=== PATIENT | female | born 1945 | race Caucasian/White ===

== ENCOUNTER 2016-12-17 17:30 | Emergency (ER) | payer MEDICARE ==
[~2016-12-17] VITALS: Ht 162.6 cm; Wt 68.5 kg
[~2016-12-17 17:30] MED LIST: AMOX500C PO; AZEL23SP NS; BUPR100T6 PO; BUPR150T15 PO; CALC-30 PO; CEFU500T46 PO; CIPR500T PO; CYAN100T PO; FLUO10CA13 PO; GABA-585 PO; HYDR25TA9 PO; LEVO75TA5 PO; LEVO88TA2 PO; LIPA1CAP13 PO; LORA2TAB PO; MULT-208 PO; MULT1TAB52 PO; NALT50TA3 PO; NIFE30TA17 PO; OMEG1CAP16 PO; TOPI100T8 PO; TOPI25TA52 PO; VITA1TAB9 PO
[2016-12-17 18:03] VITALS: BP 123/78
[2016-12-17 18:43] LABS: BASO % 1 % (0-3); EOS # 0.1 x10^3/uL (0.0-0.7); EOS % 2 % (0-3); HEMATOCRIT 38.7 % (36.0-47.0); HEMOGLOBIN 12.8 g/dL (12.0-15.5); LYMPH # 1.4 x10^3/uL (1.0-4.8); LYMPH % 31 % (24-48); MEAN CORPUSCULAR HEMOGLOBIN 30 pg (25-35); MEAN CORPUSCULAR HGB CONC 33 g/dL (31-37); MEAN CORPUSCULAR VOLUME 91 fL (79-100); MONO # 0.3 x10^3/uL (0.0-1.1); MONO % 8 % (0-9); NEUT # 2.6 x10^3uL (1.8-7.7); NEUT % 59 % (31-73); PLATELET COUNT 155 x10^3/uL (140-400); RED BLOOD COUNT 4.27 x10^6/uL (3.50-5.40); RED CELL DISTRIBUTION WIDTH 15.6 % (11.5-14.5); WHITE BLOOD COUNT 4.4 x10^3/uL (4.0-11.0)
[2016-12-17] MEDS ORDERED: MVI, ADULT NO.4 WITH VIT K 10 ML, FOLIC ACID 1 MG, THIAMINE 100 MG in IV DEXTROSE 5%-LA... IV ONE ×4 (18:45)
[2016-12-17 19:00] LABS: ALBUMIN 3.9 g/dL (3.4-5.0); ALBUMIN/GLOBULIN RATIO 1.1 (1.0-1.7); CALCIUM 8.4 mg/dL (8.5-10.1); CREATININE 0.6 mg/dL (0.6-1.0); DIRECT BILIRUBIN 0.1 mg/dL (0.0-0.2); GFR 98.5; POTASSIUM 3.6 mmol/L (3.5-5.1); TOTAL BILIRUBIN 0.4 mg/dL (0.2-1.0); TOTAL PROTEIN 7.5 g/dL (6.4-8.2)
[2016-12-17 19:00] LABS: AMPHETAMINE/METHAMPHETAMINE NEG (NEG); BARBITURATES NEG (NEG); BENZODIAZEPINES NEG (NEG); CANNABINOIDS NEG (NEG); COCAINE NEG (NEG); METHADONE NEG (NEG); OPIATES NEG (NEG); PHENCYCLIDINE NEG (NEG)
--- NOTE | 2016-12-17 19:47 | ED.ADGEN ---
Past History Past Medical History: Alcoholism, High Cholesterol, Hypertension Past Surgical History: , Hysterectomy, Tonsillectomy Smoking: Non-smoker Alcohol Use: Heavy Drug Use: None Adult General Chief Complaint Chief Complaint ".. I was out walking on [address] [place] in [facility]... and guess I had fallen asleep.. .. I had been drink a little more than usual..." it just seem like a good place to take a nap.. quite. weather was great... but the hauled me in here..." HPI HPI Patient is a 71 year old female who presents with above hx and states she laid down and fell asleep, and when she did not return she they sent out search alliance party. Pt. found asleep, pt. is currently alert and pressured speech. Some dis coordination. Pt. has no specific complaints. Pt. Follows with Dr. Mendez. Pt. does have hx alcohol abuse. Review of Systems Review of Systems Constitutional: Denies fever or chills [] Eyes: Denies change in visual acuity, redness, or eye pain [] HENT: Denies nasal congestion or sore throat [] Respiratory: Denies cough or shortness of breath [] Cardiovascular: No additional information not addressed in HPI [] GI: Denies abdominal pain, nausea, vomiting, bloody stools or diarrhea [] : Denies dysuria or hematuria [] Musculoskeletal: Denies back pain or joint pain [] Integument: Denies rash or skin lesions [] Neurologic: Denies headache, focal weakness or sensory changes [] Endocrine: Denies polyuria or polydipsia [] Family History Family History Non- contributory Current Medications Current Medications Current Medications Medications (Trade) Dose Ordered Sig/Nova Start Time Stop Time Status Last Admin Dose Admin Multivitamins/ Minerals 10 ml/ Folic Acid 1 mg/ Thiamine HCl 100 mg/Dextrose/ Lactated Ringer's 1,011.2 ml @ 0 mls/hr 1X ONCE 12/17/16 18:45 12/17/16 18:46 DC 12/17/16 19:00 1,000 MLS/HR See Nursing for home meds Allergies Allergies Allergies Coded Allergies Type Severity Reaction Last Updated Verified Mquwycz-Qky-Rqn Reductase Inhibitor Allergy Intermediate 05/18/14 Yes lithium Allergy Intermediate 05/18/14 Yes I S O L A T I O N *CONTACT* Allergy Unknown 05/17/14 No acetaminophen Adverse Reaction Severe 08/20/14 Yes chlordiazepoxide Adverse Reaction Intermediate 08/20/14 Yes Physical Exam Physical Exam Constitutional: Well developed, well nourished, no acute distress, non-toxic appearance. [] and beside- states pt. current mental is at her baseline. HENT: Normocephalic, atraumatic, bilateral external ears normal, oropharynx dry , no oral exudates, nose normal. [] Eyes: PERRLA, EOMI, conjunctiva normal, no discharge. [] Neck: Normal range of motion, no tenderness, supple, no stridor. No bruits Cardiovascular:Heart rate regular rhythm, no murmur [] Lungs & Thorax: Bilateral breath sounds clear to auscultation [] Abdomen: Bowel sounds normal, soft, no tenderness, no masses, no pulsatile masses. [] Skin: Warm, dry, no erythema, no rash. [No signs of trauma noted. ] Back: No tenderness, no CVA tenderness. [] Extremities: No tenderness, no cyanosis, no clubbing, ROM intact, no edema. [] Neurologic: Alert and oriented X 3, normal motor function, normal sensory function, no focal deficits noted. []DTRs are +2 at patella and brachial. Distal sensation intact. [id number] fair. 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 Slightly wide gait Psychologic: Affect verbose, judgement normal, mood normal. [Patient up set about being brought to the hospital] Current Patient Data Vital Signs Vital Signs Date Time Temp Pulse Resp B/P (MAP) Pulse Ox O2 Delivery O2 Flow Rate FiO2 12/17/16 18:03 71 16 123/78 (93) 97 12/17/16 17:43 98.0 Room Air Lab Results Laboratory Tests Test 12/17/16 18:24 12/17/16 18:35 White Blood Count 4.4 x10^3/uL (4.0-11.0) Red Blood Count 4.27 x10^6/uL (3.50-5.40) Hemoglobin 12.8 g/dL (12.0-15.5) Hematocrit 38.7 % (36.0-47.0) Mean Corpuscular Volume 91 fL (79-100) Mean Corpuscular Hemoglobin 30 pg (25-35) Mean Corpuscular Hemoglobin Concent 33 g/dL (31-37) Red Cell Distribution Width 15.6 % (11.5-14.5) H Platelet Count 155 x10^3/uL (140-400) Neutrophils (%) (Auto) 59 % (31-73) Lymphocytes (%) (Auto) 31 % (24-48) Monocytes (%) (Auto) 8 % (0-9) Eosinophils (%) (Auto) 2 % (0-3) Basophils (%) (Auto) 1 % (0-3) Neutrophils # (Auto) 2.6 x10^3uL (1.8-7.7) Lymphocytes # (Auto) 1.4 x10^3/uL (1.0-4.8) Monocytes # (Auto) 0.3 x10^3/uL (0.0-1.1) Eosinophils # (Auto) 0.1 x10^3/uL (0.0-0.7) Basophils # (Auto) 0.0 x10^3/uL (0.0-0.2) Prothrombin Time 9.3 SEC (9.4-11.4) L Prothrombin Time INR 0.9 (0.9-1.1) PTT 24 SEC (23-33) Sodium Level 145 mmol/L (136-145) Potassium Level 3.6 mmol/L (3.5-5.1) Chloride Level 106 mmol/L (98-107) Carbon Dioxide Level 31 mmol/L (21-32) Anion Gap 8 (6-14) Blood Urea Nitrogen 15 mg/dL (7-20) Creatinine 0.6 mg/dL (0.6-1.0) Estimated GFR (Cockcroft-Gault) 98.5 BUN/Creatinine Ratio 25 (6-20) H Glucose Level 131 mg/dL (70-99) H Calcium Level 8.4 mg/dL (8.5-10.1) L Total Bilirubin 0.4 mg/dL (0.2-1.0) Direct Bilirubin 0.1 mg/dL (0.0-0.2) Aspartate Amino Transferase (AST) 27 U/L (15-37) Alanine Aminotransferase (ALT) 27 U/L (14-59) Alkaline Phosphatase 62 U/L (46-116) Troponin I Quantitative < 0.017 ng/mL (0-0.055) ES-Nkl-P-Type Natriuretic Peptide 88 pg/mL (0-124) Total Protein 7.5 g/dL (6.4-8.2) Albumin 3.9 g/dL (3.4-5.0) Albumin/Globulin Ratio 1.1 (1.0-1.7) Ethyl Alcohol Level 235 mg/dL (0-10) H Urine Opiates Screen Neg (NEG) Urine Methadone Screen Neg (NEG) Urine Barbiturates Neg (NEG) Urine Phencyclidine Screen Neg (NEG) Urine Amphetamine/Methamphetamine Neg (NEG) Urine Benzodiazepines Screen Neg (NEG) Urine Cocaine Screen Neg (NEG) Urine Cannabinoids Screen Neg (NEG) Urine Ethyl Alcohol Pos (NEG) EKG EKG I interpretation EKG shows a sinus rhythm at 72 bpm. Contour abnormalities anterior septal region nonspecific. No findings of STEMI.] Radiology/Procedures Radiology/Procedures [] Course & Med Decision Making Course & Med Decision Making Pertinent Labs and Imaging studies reviewed. (See chart for details) Pt. refuses further work up at this time . encourage pt. to return if any concerns. Pt. exhibit UCAR capacity. Pt. left with . Ambulatory without problems. Pt. to follow up with primary. Pt encourage reduce alcohol use. Return if any concerns. Daily baby aspirin. [] Final Impression Final Impression 1. Excessive Alcohol Use[] 2. Mid dehydration 3. Elevated Glucose Problems: Dragon Disclaimer Dragon Disclaimer This electronic medical record was generated, in whole or in part, using a voice recognition dictation system. LENIN CALLES MD Dec 17, 2016 19:47
--- NOTE | 2016-12-18 02:24 | EKG ---
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
--- NOTE | 2016-12-18 08:23 | RAD ---
Indication syncopal episode. Suspect CVA. Protocol exam. A single view of the chest was obtained and is compared to an examination 01/24/2016. The level of inspiratory is not as good as on the previous exam. There is some volume loss at the left lung base which, given the history, likely reflects atelectasis. Significant pleural fluid is not seen. There is no pneumothorax. IMPRESSION: Slightly suboptimal inspiratory effort. Minimal volume loss at the left lung base likely reflects atelectasis
== END 2016-12-17 19:58 | disposition home or self-care (01) ==
LOC: ER 17:30
DX: F10.20 Alcohol dependence, uncomplicated (principal); E86.0 Dehydration; R73.02 Impaired glucose tolerance (oral); I10 Essential (primary) hypertension; E78.00 Pure hypercholesterolemia, unspecified; Z90.49 Acquired absence of other specified parts of digestive tract; Z98.890 Other specified postprocedural states; Z88.8 Allergy status to other drugs, medicaments and biological substances; Z88.6 Allergy status to analgesic agent; Z91.041 Radiographic dye allergy status
CPT/HCPCS: 36415; 71010; 80053; 80307; 82248; 83880; 84484; 85025; 85610; 85730; 93005; 96365; 99285; G0480; G0479

== ENCOUNTER 2017-02-06 12:14 | Emergency (ER) | payer MEDICARE ==
[~2017-02-06] VITALS: Ht 162.6 cm; Wt 68.5 kg
[2017-02-06] MEDS ORDERED: ONDANSETRON PF 4 MG/2 ML VIAL. IV ONE (13:00)
[2017-02-06] MEDS ORDERED: FAMOTIDINE 20 MG/2 ML VIAL IVP ONE (13:00)
--- NOTE | 2017-02-06 13:13 | RAD ---
INDICATION: etoh, altered mental status COMPARISON: 12/17/2016 FINDINGS: Single view of chest obtained. Hypoexpanded examination with repeat demonstration of focal opacity at left lung base. Calcific atherosclerosis without enlargement of cardiac silhouette. Degenerative changes of the shoulders. IMPRESSION: Similar exam of compared to prior with hypoexpanded exam and hazy opacity at the left lung base. Could be secondary to a region of atelectasis unless the patient is displaying signs of infection.
[2017-02-06 13:14] LABS: BASO % 1 % (0-3); EOS # 0.1 x10^3/uL (0.0-0.7); EOS % 1 % (0-3); HEMOGLOBIN 13.3 g/dL (12.0-15.5); LYMPH # 0.9 x10^3/uL (1.0-4.8); LYMPH % 20 % (24-48); MEAN CORPUSCULAR HEMOGLOBIN 31 pg (25-35); MEAN CORPUSCULAR HGB CONC 34 g/dL (31-37); MEAN CORPUSCULAR VOLUME 91 fL (79-100); MONO # 0.4 x10^3/uL (0.0-1.1); MONO % 9 % (0-9); NEUT % 70 % (31-73); PLATELET COUNT 84 x10^3/uL (140-400); RED BLOOD COUNT 4.27 x10^6/uL (3.50-5.40); RED CELL DISTRIBUTION WIDTH 15.1 % (11.5-14.5); WHITE BLOOD COUNT 4.4 x10^3/uL (4.0-11.0)
[2017-02-06] MEDS ORDERED: MVI, ADULT NO.4 WITH VIT K 10 ML, FOLIC ACID SYRINGE for ER 1 MG, THIAMINE 100 MG in IV... IV SCH ×4 (13:15)
[2017-02-06 13:26] LABS: ALBUMIN 4.1 g/dL (3.4-5.0); CALCIUM 8.6 mg/dL (8.5-10.1); CREATININE 0.5 mg/dL (0.6-1.0); DIRECT BILIRUBIN 0.2 mg/dL (0.0-0.2); GFR 121.6; MAGNESIUM 1.7 mg/dL (1.8-2.4); POTASSIUM 3.7 mmol/L (3.5-5.1); TOTAL BILIRUBIN 0.6 mg/dL (0.2-1.0); TOTAL PROTEIN 7.7 g/dL (6.4-8.2)
--- NOTE | 2017-02-06 13:34 | PHYS DOC ---
General Chief Complaint: ALCOHOL INTOXICATION Stated Complaint: SHAKING Time Seen by MD: 12:45 Source: patient, family Exam Limitations: intoxication Problems: History of Present Illness Initial Comments Patient is a 71-year-old female brought to the ED admittedly intoxicated with alcohol requesting assistance with alcohol withdrawal. Patient's spouse states that this morning he observed her to be shaking and thought she could be withdrawing from alcohol. Patient states that she feels fine she understands that she is intoxicated and admits to nursing staff that she drank about a pint of vodka this morning. She admits to me that she had 1-2 cocktails of vodka. Patient states that she has been in and out of rehabilitation facilities for alcoholism and that she started drinking in the early 90s as result of stopping smoking. She denies any history of delirium tremens as well she denies history of seizure during all call withdrawal. 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 She is mildly hypertensive otherwise her ED vital signs are stable. She is noted to be slurring with some emotional lability but is for the most part agreeable and cooperative. She agrees to a banana bag and lab evaluation. Last drink was "this morning." Timing/Duration: other Severity: moderate Modifying Factors: improves with other Associated Symptoms: denies symptoms Allergies: Coded Allergies: Gxiattb-Hlf-Dlk Reductase Inhibitor (Verified Allergy, Intermediate, ) lithium (Verified Allergy, Intermediate, 05/18/14) I S O L A T I O N *CONTACT* (Unverified Allergy, Unknown, 05/17/14) acetaminophen (Verified Adverse Reaction, Severe, 08/20/14) has liver disease chlordiazepoxide (Verified Adverse Reaction, Intermediate, 08/20/14) confusion, falls Past Medical History Medical History: glaucoma, hepatitis, high cholesterol, hypertension, pancreatitis, other (alcoholism, depression, hypothyroidism, alcoholic liver disease, T12 compression fracture) Surgical History: tonsillectomy, other Family History Significant Family History: no pertinent family hx Social History Smoker: quit greater than 1 year Alcohol: heavy Drugs: none Review of Systems Constitutional: denies chills, denies diaphoresis, denies fever Respiratory: denies cough, denies shortness of breath, denies wheezing Cardiovascular: denies chest pain, denies palpitations, denies syncope Gastrointestinal: denies abdominal pain, denies diarrhea, denies nausea, denies vomiting Genitourinary: denies dysuria, denies frequency, denies hematuria Musculoskeletal: denies back pain, denies joint swelling, denies neck pain Psychiatric/Neurological: denies headache, denies numbness, denies paresthesia , denies seizure, denies tremors Hematologic/Lymphatic: denies blood clots, denies easy bleeding, denies easy bruising Physical Exam General Appearance: no apparent distress (disheveled, slurring obviously intoxicated) Eyes: bilateral eye PERRL, bilateral eye EOMI, bilateral eye scleral icterus ( mild bilaterally) Ear, Nose, Throat: hearing grossly normal, normal ENT inspection, normal pharynx Neck: non-tender, supple Respiratory: normal breath sounds, no respiratory distress (milligrams) Cardiovascular: normal peripheral pulses, regular rate, rhythm Gastrointestinal: normal bowel sounds, non tender, soft (liver 2 cm below costal margin) Back: no CVA tenderness, no vertebral tenderness Extremities: normal range of motion, non-tender, normal inspection Neurologic/Psychiatric: actuary II-XII nml as tested, no motor/sensory deficits, oriented x 3, other (intoxicated no tremor noted) Skin: warm/dry (no appreciable jaundice) Orders, Labs, Meds EKG: Normal sinus rhythm 70 bpm, T contour abnormality no STEMI changes. Interpreted Dr. Alcocer. PATIENT: SUNIL HOWELL ACCOUNT: [id number] : 1945 LOCATION: ER AGE: 71 SEX: F EXAM STATUS: REG ER ORD. PHYSICIAN: HORTENSIA ALCOCER DO REASON: etoh PROCEDURE: PORTABLE CHEST 1V INDICATION: etoh, altered mental status COMPARISON: 12/17/2016 FINDINGS: Single view of chest obtained. Hypoexpanded examination with repeat demonstration of focal opacity at left lung base. Calcific atherosclerosis without enlargement of cardiac silhouette. Degenerative changes of the shoulders. IMPRESSION: Similar exam of compared to prior with hypoexpanded exam and hazy opacity at the left lung base. Could be secondary to a region of atelectasis unless the patient is displaying signs of infection. DICTATED AND SIGNED BY: SHEILA RAM MD DATE: 02/06/17 0047 CC: RICHARD ZHANG MD; HORTENSIA ALCOCER DO ~ Pertinent labs: EtOH 278, magnesium 1.7, ALT 57, AST 63, platelets 84 1403: I had a long discussion with the patient and her regarding alcohol abuse, addiction, the dangers of D-Ts and alcohol withdrawal including seizures and . I discussed the patient's results today alcohol level 278, magnesium 1.7, ALT 57, AST 63, platelets 84. Lipase is pending and urine studies are pending as well. After thorough discussion of the risks and benefits of staying versus leaving the patient does request to leave as soon as her fluids have been completed. Her agrees that he will take her home and care for her until she megan up I will have orders ready for the winter fluids are done she would be discharged home with her . Impression: Alcoholism with acute intoxication Hypomagnesemia Alcoholic liver disease Thrombocytopenia likely secondary to alcohol abuse Departure Disposition: 01 HOME, SELF-CARE Diagnosis: alcoholism with acute intox, alcoholic liver dz, t Condition: GUARDED Patient Instructions: Alcohol Intoxication, Lvlm-qy-Akpd, Chronic Alcoholism Additional Instructions: Seek inpatient alcohol withdrawal rehabilitation treatment. Aggressive hydration with Gatorade and water. Multivitamin daily. No driving or operating machinery while intoxicated. Follow-up with Dr. Zhang on Thursday. Return to ED with new or changing symptoms. HORTENSIA ALCOCER DO Feb 06, 2017 13:34
[2017-02-06 14:00] LABS: BARBITURATES NEG (NEG); BENZODIAZEPINES NEG (NEG); CANNABINOIDS NEG (NEG); COCAINE NEG (NEG); METHADONE NEG (NEG); OPIATES NEG (NEG); PHENCYCLIDINE NEG (NEG)
[2017-02-06 14:01] LABS: AMPHETAMINE/METHAMPHETAMINE NEG (NEG)
[2017-02-06 14:02] LABS: BILIRUBIN,URINE NEG (NEG); CLARITY,URINE HAZY; COLOR,URINE YELLOW; GLUCOSE,URINE NEG (NEG)
[2017-02-06 14:03] LABS: BACTERIA,URINE FEW /HPF (0-FEW); NITRITE,URINE NEG (NEG); RBC,URINE OCC /HPF (0-2); SQUAMOUS EPITHELIAL CELL,UR OCC /LPF; UROBILINOGEN,URINE 0.2 mg/dL (0.2 mg/dL); WBC,URINE 0 /HPF (0-4)
[2017-02-06 14:30] VITALS: BP 146/92
--- NOTE | 2017-02-06 15:47 | EKG ---
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
== END 2017-02-06 14:30 | disposition home or self-care (01) ==
LOC: ER 12:14
DX: F10.229 Alcohol dependence with intoxication, unspecified (principal); E83.42 Hypomagnesemia; K70.9 Alcoholic liver disease, unspecified; D69.6 Thrombocytopenia, unspecified; E03.9 Hypothyroidism, unspecified; E78.00 Pure hypercholesterolemia, unspecified; I10 Essential (primary) hypertension; Z87.891 Personal history of nicotine dependence; Z88.8 Allergy status to other drugs, medicaments and biological substances; Z88.6 Allergy status to analgesic agent; Z91.041 Radiographic dye allergy status
CPT/HCPCS: 36415; 71010; 80048; 80076; 80307; 81001; 83690; 83735; 85025; 85610; 85730; 93005; 96365; 96375; 99285; G0480; J2405; S0028; G0479; J7030

== ENCOUNTER 2017-10-30 15:59 | Inpatient (IN) | payer MEDICARE ==
[~2017-10-30] VITALS: Ht 162.6 cm; Wt 80.5 kg
--- NOTE | 2017-10-30 16:41 | EKG ---
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
[2017-10-30] MEDS ORDERED: MVI, ADULT NO.4 WITH VIT K 10 ML, FOLIC ACID 1 MG, THIAMINE 100 MG in IV NORMAL SALINE ... IV ONE ×4 (16:45)
--- NOTE | 2017-10-30 17:03 | RAD ---
Indication: Fall today, pain Technique: Axial images and coronal and sagittal reformatted images are provided. Comparison is from November 18, 2012. One or more of the following individualized dose reduction techniques were utilized for this examination: 1. Automated exposure control 2. Adjustment of the mA and/or kV according to patient size 3. Use of iterative reconstruction technique Findings: There is no fracture. There is straightening of cervical lordosis. This may be positional or secondary to muscle spasm. Craniovertebral junction is unremarkable. Prevertebral soft tissues are within normal limits. Degenerative changes are noted. There is narrowing of the interspace at C5-C6. There is facet hypertrophy greatest at C3-C4 on the left and C4-C5 on the right. There is endplate spurring greatest at C5-C6. There are carotid artery calcifications. There is mild emphysema in the lung apices. IMPRESSION: 1. Negative for an acute fracture. 2. Straightening of cervical lordosis may be positional or secondary to muscle spasm. 3. Degenerative changes are increased from prior examination. Electronically signed by: Tray Ugalde MD (10/30/2017 4:59 PM) [facility]
--- NOTE | 2017-10-30 17:07 | RAD ---
Indication: Fall today. Patient states history of subdural hematoma. Technique: Noncontrast CT head was obtained. CT maxillofacial includes axial images and coronal and sagittal reformatted images. Comparison CT head is from May 25, 2015. One or more of the following individualized dose reduction techniques were utilized for this examination: 1. Automated exposure control 2. Adjustment of the mA and/or kV according to patient size 3. Use of iterative reconstruction technique Findings: Head: The ventricles are normal in size and configuration for age. There is no acute intracranial hemorrhage or extra-axial fluid collection. There is no mass effect or midline shift. There is mild probable small vessel ischemic disease. There is no depressed skull fracture. There is mild hyperostosis frontalis. Maxillofacial: There is no orbital fracture. Nasal bones are intact. Zygomatic arches are intact. Pterygoid plates are intact. Mandible is intact. There is no hemosinus. There is minimal maxillary mucosal thickening. There is nasal septal deviation to the right. There is a paradoxical left middle turbinate. IMPRESSION: 1. No acute intracranial findings. 2. Brain parenchymal volume loss and mild probable small vessel ischemic disease. 3. Negative for maxillofacial fracture. Electronically signed by: Tray Ugalde MD (10/30/2017 5:04 PM) [facility]
[2017-10-30 17:13] LABS: BASO % 1 % (0-3); EOS # 0.1 x10^3/uL (0.0-0.7); EOS % 2 % (0-3); HEMATOCRIT 38.8 % (36.0-47.0); LYMPH % 23 % (24-48); MEAN CORPUSCULAR HEMOGLOBIN 33 pg (25-35); MEAN CORPUSCULAR HGB CONC 34 g/dL (31-37); MEAN CORPUSCULAR VOLUME 98 fL (79-100); MONO # 0.4 x10^3/uL (0.0-1.1); MONO % 10 % (0-9); NEUT # 2.8 x10^3uL (1.8-7.7); NEUT % 66 % (31-73); PLATELET COUNT 108 x10^3/uL (140-400); RED BLOOD COUNT 3.97 x10^6/uL (3.50-5.40); RED CELL DISTRIBUTION WIDTH 14.2 % (11.5-14.5); WHITE BLOOD COUNT 4.3 x10^3/uL (4.0-11.0)
[2017-10-30 17:25] LABS: ALBUMIN 3.8 g/dL (3.4-5.0); CALCIUM 8.3 mg/dL (8.5-10.1); CREATININE 0.7 mg/dL (0.6-1.0); DIRECT BILIRUBIN 0.1 mg/dL (0.0-0.2); GFR 82.3; POTASSIUM 3.6 mmol/L (3.5-5.1); TOTAL BILIRUBIN 0.3 mg/dL (0.2-1.0); TOTAL PROTEIN 7.2 g/dL (6.4-8.2)
[2017-10-30 17:39] LABS: COLOR,URINE YELLOW
[2017-10-30 17:40] LABS: BACTERIA,URINE MANY /HPF (0-FEW); BILIRUBIN,URINE NEG (NEG); CLARITY,URINE CLOUDY; GLUCOSE,URINE NEG (NEG); NITRITE,URINE POS (NEG); SQUAMOUS EPITHELIAL CELL,UR FEW /LPF; UROBILINOGEN,URINE 0.2 mg/dL (0.2 mg/dL)
[2017-10-30] MEDS ORDERED: cefTRIAXone IV Push 1 GM VIAL. IVP ONE (18:00)
[2017-10-30] MEDS ORDERED: ONDANSETRON PF 4 MG/2 ML VIAL. IV PRN (18:15)
[2017-10-30] MEDS ORDERED: MORPHINE SULFATE 2 MG/ML DISP.SYRIN. IV PRN (18:15)
--- NOTE | 2017-10-30 18:35 | PHYS DOC ---
Past History Past Medical History: Alcoholism, High Cholesterol, Hypertension Past Surgical History: , Hysterectomy, Tonsillectomy Smoking: Non-smoker Alcohol Use: Heavy Drug Use: None Adult General Chief Complaint Chief Complaint: MECHANICAL FALL HPI HPI 72-year-old female presenting to the emergency department after sustaining a fall. Patient is a known alcoholic and admits to drinking today. She does not remember whether she had a mechanical fall and is unsure whether she passed out. She denies any pain. She does have ecchymosis over her left periorbital region. No palpable fractures noted. She denies neck pain and has nontender midline cervical spine. Blood pressure is mildly elevated in the emergency department. Otherwise vitals unremarkable. She denies fevers or chills. Patient is a poor story. Onset today. Location head and neck. Duration intermittent. No alleviating factors. Review of systems is negative for chest pain shortness of breath fevers chills abdominal pain neck pain neck stiffness. All other review of systems is negative unless otherwise noted in history of present illness. ED course: 72-year-old alcoholic presenting to the emergency department today after sustaining head injury. Possible loss of consciousness.Poor historian. EKG obtained and reviewed by myself shows sinus rhythm with a regular rate. ST segments are congruent. Not suggestive of ACS. Head neck and maxillofacial CT obtained and unremarkable for acute fracture. Patient's pupils are equal and reactive. No lacerations on examination. The remainder the workup demonstrates a urinary tract infection. Patient desires to stop drinking as well. I believe the patient will best be benefited by been treated in the hospital for IV detox IV antibiotics until sobriety. Dr. Robledo accept the patient for admission. Basic bridge orders placed. Fall precautions placed. The patient was then admitted for further treatment and care. We will start him the ICU and the patient to be stepdown depending on how her detox goes. Review of Systems Review of Systems SEE ABOVE. Current Medications Current Medications Current Medications Medications (Trade) Dose Ordered Sig/Nova Start Time Stop Time Status Last Admin Dose Admin Ceftriaxone Sodium 1 gm/ Sodium Chloride 50 ml @ 100 mls/hr 1X ONCE 10/30/17 18:00 10/30/17 18:29 UNV Ceftriaxone Sodium (Rocephin) 1 gm 1X ONCE 10/30/17 18:00 10/30/17 18:01 DC 10/30/17 18:00 1 GM Morphine Sulfate (Morphine 2mg Syringe) 2 mg PRN Q2HR PRN 10/30/17 18:15 10/31/17 18:14 Multivitamins/ Minerals 10 ml/ Folic Acid 1 mg/ Thiamine HCl 100 mg/Sodium Chloride 1,011.2 ml @ 0 mls/hr 1X ONCE 10/30/17 16:45 10/30/17 16:46 DC 10/30/17 16:45 1,000 MLS/HR Ondansetron HCl (Zofran) 4 mg PRN Q4HRS PRN 10/30/17 18:15 10/31/17 18:14 Sodium Chloride 1,000 ml @ 100 mls/hr Q10H 10/30/17 18:02 10/31/17 18:01 Allergies Allergies Allergies Coded Allergies Type Severity Reaction Last Updated Verified Cipmkvg-Hje-Dkd Reductase Inhibitor Allergy Intermediate 05/18/14 Yes lithium Allergy Intermediate 05/18/14 Yes I S O L A T I O N *CONTACT* Allergy Unknown 05/17/14 No acetaminophen Adverse Reaction Severe 08/20/14 Yes chlordiazepoxide Adverse Reaction Intermediate 08/20/14 Yes Physical Exam Physical Exam SEE ABOVE Constitutional: Well developed, well nourished, no acute distress, non-toxic appearance. [] HENT: Normocephalic, ecchymosis in the periorbital region on the left eye with normal eye exam., bilateral external ears normal, oropharynx moist, no oral exudates, nose normal. [] Eyes: PERRLA, EOMI, conjunctiva normal, no discharge. [] Neck: Normal range of motion, no tenderness, supple, no stridor. No step-offs abrasions lacerations of the cervical thoracic or lumbar spine on examination. Cardiovascular:Heart rate regular rhythm, no murmur [] Lungs & Thorax: Bilateral breath sounds clear to auscultation [] Abdomen: Bowel sounds normal, soft, no tenderness, no masses, no pulsatile masses. [] Skin: Warm, dry, no erythema, no rash. [] Back: No tenderness, no CVA tenderness. [] Extremities: No tenderness, no cyanosis, no clubbing, ROM intact, no edema. [] Neurologic: Alert and oriented X 3, normal motor function, normal sensory function, no focal deficits noted. [] Psychologic: Affect normal, judgement normal, mood normal. [] Current Patient Data Vital Signs Vital Signs Date Time Temp Pulse Resp B/P (MAP) Pulse Ox O2 Delivery O2 Flow Rate FiO2 10/30/17 17:58 80 18 141/83 (102) 98 Room Air 10/30/17 16:20 98.2 Lab Results Laboratory Tests Test 10/30/17 16:22 10/30/17 16:55 White Blood Count 4.3 x10^3/uL (4.0-11.0) Red Blood Count 3.97 x10^6/uL (3.50-5.40) Hemoglobin 13.0 g/dL (12.0-15.5) Hematocrit 38.8 % (36.0-47.0) Mean Corpuscular Volume 98 fL (79-100) Mean Corpuscular Hemoglobin 33 pg (25-35) Mean Corpuscular Hemoglobin Concent 34 g/dL (31-37) Red Cell Distribution Width 14.2 % (11.5-14.5) Platelet Count 108 x10^3/uL (140-400) L Neutrophils (%) (Auto) 66 % (31-73) Lymphocytes (%) (Auto) 23 % (24-48) L Monocytes (%) (Auto) 10 % (0-9) H Eosinophils (%) (Auto) 2 % (0-3) Basophils (%) (Auto) 1 % (0-3) Neutrophils # (Auto) 2.8 x10^3uL (1.8-7.7) Lymphocytes # (Auto) 1.0 x10^3/uL (1.0-4.8) Monocytes # (Auto) 0.4 x10^3/uL (0.0-1.1) Eosinophils # (Auto) 0.1 x10^3/uL (0.0-0.7) Basophils # (Auto) 0.0 x10^3/uL (0.0-0.2) Urine Collection Type Unknown Urine Color Yellow Urine Clarity Cloudy Urine pH 7.0 Urine Specific Byron 1.015 Urine Protein 100 mg/dl (NEG-TRACE) Urine Glucose (UA) Neg mg/dL (NEG) Urine Ketones (Stick) Neg mg/dL (NEG) Urine Blood Small (NEG) Urine Nitrite Pos (NEG) Urine Bilirubin Neg (NEG) Urine Urobilinogen Dipstick 0.2 mg/dL (0.2 mg/dL) Urine Leukocyte Esterase Small (NEG) Urine RBC 6-10 /HPF (0-2) Urine WBC 11-20 /HPF (0-4) Urine Squamous Epithelial Cells Few /LPF Urine Transitional Epithelial Cells Few /LPF Urine Bacteria Many /HPF (0-FEW) Sodium Level 144 mmol/L (136-145) Potassium Level 3.6 mmol/L (3.5-5.1) Chloride Level 106 mmol/L (98-107) Carbon Dioxide Level 31 mmol/L (21-32) Anion Gap 7 (6-14) Blood Urea Nitrogen 14 mg/dL (7-20) Creatinine 0.7 mg/dL (0.6-1.0) Estimated GFR (Cockcroft-Gault) 82.3 Glucose Level 101 mg/dL (70-99) H Calcium Level 8.3 mg/dL (8.5-10.1) L Total Bilirubin 0.3 mg/dL (0.2-1.0) Direct Bilirubin 0.1 mg/dL (0.0-0.2) Aspartate Amino Transferase (AST) 37 U/L (15-37) Alanine Aminotransferase (ALT) 45 U/L (14-59) Alkaline Phosphatase 46 U/L (46-116) Troponin I Quantitative < 0.017 ng/mL (0-0.055) Total Protein 7.2 g/dL (6.4-8.2) Albumin 3.8 g/dL (3.4-5.0) Lipase 576 U/L (73-393) H Ethyl Alcohol Level 295 mg/dL (0-10) H EKG EKG [] Radiology/Procedures Radiology/Procedures [] Course & Med Decision Making Course & Med Decision Making Pertinent Labs and Imaging studies reviewed. (See chart for details) [] Dragon Disclaimer Dragon Disclaimer This electronic medical record was generated, in whole or in part, using a voice recognition dictation system. Departure Departure: Impression: Primary Impression: Alcohol dependence with physiological dependence Additional Impressions: Fall Head injury Urinary tract infection Desire for detoxification Disposition: ADMITTED INPATIENT Admitting Physician: Tommy Dodd Condition: STABLE Referrals: TOMMY DODD MD (PCP) Problem Qualifiers RACHAEL COLON MD Oct 30, 2017 18:35
[2017-10-30 19:20] VITALS: BP 169/89
[2017-10-30 20:00] VITALS: BP 176/84
[2017-10-30] MEDS: IV NORMAL SALINE 1,000ML 1,000 ML IV SCH (20:40)
[2017-10-30 21:10] VITALS: BP 148/81
[2017-10-30 22:00] VITALS: BP 153/88
[2017-10-30 22:10] VITALS: BP 153/88
[2017-10-30 23:10] VITALS: BP 144/77
[2017-10-31] VITALS (27 sets, daily range): BP systolic 105–182; BP diastolic 55–102
[2017-10-31] MEDS ORDERED: diphenhydrAMINE 50 MG/ML VIAL IVP PRN (02:15)
[2017-10-31] MEDS ORDERED: HALOPERIDOL LACT 5 MG/ML VIAL. IM PRN (02:15)
[2017-10-31] MEDS: LORazepam 2 MG/ML VIAL IV PRN ×2 (02:37→16:32)
[2017-10-31 06:03] LABS: BASO % 1 % (0-3); EOS % 1 % (0-3); HEMATOCRIT 33.8 % (36.0-47.0); HEMOGLOBIN 11.5 g/dL (12.0-15.5); LYMPH # 0.9 x10^3/uL (1.0-4.8); LYMPH % 19 % (24-48); MEAN CORPUSCULAR HEMOGLOBIN 33 pg (25-35); MEAN CORPUSCULAR HGB CONC 34 g/dL (31-37); MEAN CORPUSCULAR VOLUME 98 fL (79-100); MONO # 0.4 x10^3/uL (0.0-1.1); MONO % 9 % (0-9); NEUT # 3.4 x10^3uL (1.8-7.7); NEUT % 71 % (31-73); PLATELET COUNT 80 x10^3/uL (140-400); RED BLOOD COUNT 3.45 x10^6/uL (3.50-5.40); RED CELL DISTRIBUTION WIDTH 14.1 % (11.5-14.5); WHITE BLOOD COUNT 4.8 x10^3/uL (4.0-11.0)
[2017-10-31 06:28] LABS: PLT ESTIMATE DECREASED (ADEQUATE)
[2017-10-31] MEDS: IV NORMAL SALINE 1,000ML 1,000 ML IV SCH ×2 (06:42→21:58)
[2017-10-31] MEDS ORDERED: POTASSIUM CHLORIDE 20 MEQ TABLET.ER. PO ONE (07:30)
[2017-10-31] MEDS ORDERED: MVI, ADULT NO.4 WITH VIT K 10 ML, FOLIC ACID 1 MG, THIAMINE 100 MG in IV NORMAL SALINE ... IV ONE ×4 (09:00)
[2017-10-31 09:21] LABS: ALBUMIN 3.2 g/dL (3.4-5.0); CALCIUM 7.6 mg/dL (8.5-10.1); CREATININE 0.5 mg/dL (0.6-1.0); GFR 121.3; MAGNESIUM 1.6 mg/dL (1.8-2.4); POTASSIUM 3.3 mmol/L (3.5-5.1); TOTAL BILIRUBIN 0.7 mg/dL (0.2-1.0); TOTAL PROTEIN 6.3 g/dL (6.4-8.2)
[2017-10-31 10:07] LABS: BARBITURATES NEG (NEG); BENZODIAZEPINES NEG (NEG); CANNABINOIDS NEG (NEG); COCAINE NEG (NEG); METHADONE NEG (NEG); OPIATES NEG (NEG); PHENCYCLIDINE NEG (NEG)
[2017-10-31 10:08] LABS: AMPHETAMINE/METHAMPHETAMINE NEG (NEG)
[2017-10-31] MEDS ORDERED: ELECTROLYTE (NON-ICU) PROTOCOL MC PRN (11:00)
--- NOTE | 2017-10-31 14:36 | HP ---
ADMIT DATE: 10/30/2017 HISTORY OF PRESENT ILLNESS: A 72-year-old female with known history of alcoholism, came in through the Emergency Room yesterday. She has been drinking and falling. Apparently, her just and she has been extremely depressed. The patient has neck tenderness and pain, has marked contusion to her chest. Alcohol level was 300. As a result of this, the patient was brought in for detoxification. She says she wants to get off alcohol. She has had binge drinking in the past. PAST MEDICAL HISTORY: Cataract, glaucoma, tonsillectomy, colonoscopy for polyps, GERD, tubal ligation, hysterectomy, salpingotomy, kidney stone, stress incontinence as well as hypothyroidism, cirrhosis of the liver, bipolar disorder, depression. VACCINATION: Pneumococcal vaccinations are up-to-date. SOCIAL HISTORY: The patient drinks about a pint of liquor whiskey a day, last one approximately within the last 24 hours. Denies smoking. Does drink quite heavily. FAMILY HISTORY: Diabetes in a sister. Mother, father, and sisters all with heart disease and also cancers. ALLERGIES AND SENSITIVITIES: To STATINS, REDUCTASE INHIBITORS, ____ , LIBRIUM. HOME MEDICATIONS: Include calcium, levothyroxine 75, and multivitamin. REVIEW OF SYSTEMS: The patient outside of her head, neck injury and tenderness there, the patient herself is resting fairly comfortably, making fairly good progress overall. PHYSICAL EXAMINATION: GENERAL: The patient on exam is a very pleasant white female with a contusion to her jaw and black and blue area there. She has had x-rays of the neck and head and unremarkable. VITAL SIGNS: Blood pressure 150/80, respiratory rate 16, pulse 60, afebrile. HEENT: The patient's head was atraumatic and normocephalic as noted; otherwise, with the trauma to her ____ . The eyes were PERRLA without jaundice. NECK: Tender. Decreased range of motion. CARDIOVASCULAR: Regular sinus rhythm, S1, S2. ABDOMEN: Soft, nontender. EXTREMITIES: No clubbing, cyanosis, some abrasions noted to the knee caps otherwise unremarkable. The patient otherwise is resting fairly comfortably there. NEUROLOGIC: Presently alert and oriented x 3. The patient has been consulted with Cardiology because of her elevated situation with her troponins. The patient has an echocardiogram, EKG. Cardiology to review her situation there and make further evaluation per those results. Otherwise, blood pressure as indicated above. LABORATORY DATA: Show an alcohol level of over approximately 300. The patient's troponins are elevated ____ . The patient's lipase was elevated. ASSESSMENT: The patient will be continued to be monitored in the ICU for any possible withdrawal. She is on CIWA protocol and will continue to be monitored carefully. RICHARD ZHANG MD DR: RAMIRO/susan JOB#: [id number] / [id number]
--- NOTE | 2017-10-31 15:21 | RAD ---
EXAM: Abdomen sonogram complete. HISTORY: Elevated liver enzymes laboratory values. TECHNIQUE: Sonographic imaging of the abdomen was performed. COMPARISON: 12/26/2013. FINDINGS: The liver is upper normal in size. There is suspected hepatic steatosis. No focal hepatic lesion is seen. The gallbladder is unremarkable. The spleen is normal in size. The kidneys are normal in size. There is no hydronephrosis. The common bile duct is normal in caliber. The pancreas, aorta and inferior vena cava are unremarkable. IMPRESSION: 1. Suspected hepatic steatosis. 2. Otherwise, unremarkable abdomen sonogram. Electronically signed by: Mabel Jimenez MD (10/31/2017 3:17 PM) [facility] [place]
[2017-10-31] MEDS: hydrALAZINE 20 MG/ML VIAL. IV PRN (15:46)
[2017-11-01] VITALS (25 sets, daily range): BP systolic 92–185; BP diastolic 45–96
[2017-11-01] MEDS: hydrALAZINE 20 MG/ML VIAL. IV PRN ×3 (00:12→14:35)
[2017-11-01] MEDS: LORazepam 2 MG/ML VIAL IV PRN ×5 (01:11→23:11)
[2017-11-01 06:42] LABS: BASO % 1 % (0-3); EOS # 0.1 x10^3/uL (0.0-0.7); EOS % 2 % (0-3); HEMATOCRIT 38.1 % (36.0-47.0); HEMOGLOBIN 12.9 g/dL (12.0-15.5); LYMPH % 22 % (24-48); MEAN CORPUSCULAR HEMOGLOBIN 33 pg (25-35); MEAN CORPUSCULAR HGB CONC 34 g/dL (31-37); MEAN CORPUSCULAR VOLUME 97 fL (79-100); MONO # 0.4 x10^3/uL (0.0-1.1); MONO % 10 % (0-9); NEUT % 66 % (31-73); PLATELET COUNT 83 x10^3/uL (140-400); RED BLOOD COUNT 3.91 x10^6/uL (3.50-5.40); RED CELL DISTRIBUTION WIDTH 13.8 % (11.5-14.5); WHITE BLOOD COUNT 4.5 x10^3/uL (4.0-11.0)
[2017-11-01 06:54] LABS: CALCIUM 8.1 mg/dL (8.5-10.1); CREATININE 0.5 mg/dL (0.6-1.0); GFR 121.3; POTASSIUM 3.4 mmol/L (3.5-5.1)
[2017-11-01] MEDS ORDERED: POTASSIUM CHLORIDE 20 MEQ TABLET.ER. PO ONE (07:30)
--- NOTE | 2017-11-01 08:10 | RAD ---
EXAM: CHEST 1 VIEW History: Shortness of breath COMPARISON: 02/06/2017 TECHNIQUE: Single portable radiograph of the chest FINDINGS: The cardiac silhouette is unremarkable. The lungs are clear bilaterally. The costophrenic sulci are clear and well demarcated. IMPRESSION: No radiographic evidence of an acute cardiopulmonary process. Electronically signed by: Aubrey Krishnan MD (11/01/2017 8:07 AM) [facility]
--- NOTE | 2017-11-01 21:16 | PN ---
DATE: 11/01/2017 SUBJECTIVE: A 72-year-old female came with falling at home and alcohol abuse. The patient is detoxing very nicely and readily without any complications so far. Still very weak on her legs, having difficulty mobilizing. The patient continues to be in good condition overall and we will continue to monitor her accordingly. Potassium still slightly low and her T4 is also a little bit on the low side. A couple of liver enzymes slightly elevated at 42 and 41, AST and alkaline phosphatase, total albumin low at 3.2. Culture on urine is still pending. IMPRESSION: Multiple falls with head contusion, mild concussion and alcohol abuse, alcohol detoxification, depression over the loss of her . RICHARD ZHANG MD DR: RAMIRO/susan JOB#: [id number] / [id number]
[2017-11-02] VITALS (7 sets, daily range): BP systolic 138–192; BP diastolic 72–96
[2017-11-02 06:57] LABS: ALBUMIN 3.7 g/dL (3.4-5.0); CALCIUM 8.7 mg/dL (8.5-10.1); CREATININE 0.5 mg/dL (0.6-1.0); GFR 121.3; POTASSIUM 3.6 mmol/L (3.5-5.1); TOTAL BILIRUBIN 1.5 mg/dL (0.2-1.0); TOTAL PROTEIN 7.4 g/dL (6.4-8.2)
[2017-11-02] MEDS ORDERED: MVI, ADULT NO.4 WITH VIT K 10 ML, FOLIC ACID 1 MG, THIAMINE 100 MG in IV NORMAL SALINE ... IV ONE ×4 (09:00)
--- NOTE | 2017-11-02 12:52 | PDOC ---
Exam Note: Parrish Note: Please also refer to the separate dictated note~for this date of service dictated separately.~Patient seen individually. Discussed the patient with Nursing staff reviewed the chart.~Reviewed interim history and current functioning. Reviewed vital signs,~Labs/ Radiology~and current medications noted below. Continue current treatment with the changes noted in the dictated addendum note. Late entry for 11/01/17 Assessment: Vital Signs: VS - Last 72 Hours, by Label Date Time Temp Pulse Resp B/P (MAP) Pulse Ox O2 Delivery O2 Flow Rate FiO2 11/02/17 07:58 Room Air 11/02/17 06:51 59 14 169/96 (120) Room Air 11/02/17 05:56 64 18 138/72 (94) 97 Room Air 11/02/17 05:08 98.1 66 17 154/81 (105) 96 Room Air 11/02/17 04:00 Room Air 11/02/17 04:00 61 19 144/74 (97) 95 Room Air 11/02/17 03:00 60 18 192/92 (125) 96 Room Air 11/02/17 02:00 69 18 163/80 (107) 96 Room Air 11/02/17 00:01 Room Air 11/02/17 00:01 68 20 164/95 (118) 95 Room Air 11/01/17 23:00 60 17 136/84 (101) 96 Room Air 11/01/17 22:00 69 17 171/88 (115) 97 Room Air 11/01/17 21:00 62 18 163/90 (114) 96 Room Air 11/01/17 20:00 67 18 153/94 (113) 96 Room Air 11/01/17 20:00 Room Air 11/01/17 19:16 97.9 83 20 156/85 (108) 96 Room Air 11/01/17 18:08 94 16 139/73 (95) 97 Room Air 11/01/17 17:03 88 16 140/78 (98) 97 Room Air 11/01/17 16:00 Room Air 11/01/17 15:59 81 20 176/96 (122) 97 Room Air 11/01/17 15:01 84 20 132/71 (91) 97 Room Air 11/01/17 14:35 78 185/96 11/01/17 14:33 78 20 185/96 (125) 97 Room Air 11/01/17 12:56 86 15 135/67 (89) 98 Room Air 11/01/17 12:00 82 15 137/80 (99) 97 Room Air 11/01/17 12:00 Room Air 11/01/17 11:12 78 15 150/70 (96) 98 Room Air 11/01/17 10:00 84 19 111/56 (74) 98 Room Air 11/01/17 09:08 77 20 92/45 (61) 96 Room Air 11/01/17 08:00 87 20 142/85 (104) 97 Room Air 11/01/17 08:00 Room Air 11/01/17 07:40 58 166/83 11/01/17 07:00 58 17 166/83 (110) 94 Room Air 11/01/17 06:02 65 12 146/76 (99) 94 Room Air 11/01/17 06:00 68 12 162/77 (105) 93 Room Air 11/01/17 05:30 97.8 11/01/17 04:55 60 17 139/76 (97) 95 Room Air 11/01/17 04:05 62 14 147/71 (96) 97 Room Air 11/01/17 04:00 Room Air 11/01/17 03:54 74 15 160/76 (104) 91 Room Air 11/01/17 02:54 75 18 136/78 (97) 97 Room Air 11/01/17 01:54 66 15 133/74 (93) 96 Room Air 11/01/17 00:55 83 14 125/69 (87) 98 Room Air 11/01/17 00:12 55 171/90 10/31/17 23:58 Room Air 10/31/17 23:51 55 15 171/90 (117) 97 Room Air 10/31/17 22:54 52 17 156/80 (105) 98 Room Air 10/31/17 21:54 64 17 143/72 (95) Room Air 10/31/17 21:18 74 12 128/80 (96) Room Air 10/31/17 20:14 63 13 139/89 (106) Room Air 10/31/17 20:06 96 Room Air 10/31/17 19:40 Room Air 10/31/17 19:17 65 17 109/78 (88) Room Air 10/31/17 19:02 98.5 10/31/17 18:10 69 17 105/55 (72) Room Air 10/31/17 18:00 71 20 105/69 (81) 95 Room Air 10/31/17 17:16 98.1 94 20 123/83 (96) 95 Room Air 10/31/17 16:08 82 20 140/69 (92) 95 Room Air 10/31/17 16:00 Room Air 10/31/17 15:46 64 182/102 10/31/17 15:29 64 20 182/102 (128) 95 Room Air 10/31/17 14:18 55 20 157/81 (106) 95 Room Air 10/31/17 13:00 78 20 177/95 (122) 95 Room Air 10/31/17 12:24 51 20 173/90 (117) 95 Room Air 10/31/17 12:00 57 20 167/84 (111) 95 Room Air 10/31/17 12:00 Room Air 10/31/17 11:00 62 20 172/94 (120) 95 Room Air 10/31/17 10:10 60 20 154/87 (109) 95 Room Air 10/31/17 09:08 98.0 72 18 159/87 (111) 96 Room Air 10/31/17 08:13 75 20 168/98 (121) 95 Room Air 10/31/17 08:00 Room Air 10/31/17 07:30 82 20 146/96 (113) 95 Room Air 10/31/17 06:00 73 16 145/88 (107) 95 Room Air 10/31/17 05:00 60 16 137/83 (101) 95 Room Air 10/31/17 04:15 98.5 58 16 138/82 (100) 92 Room Air 10/31/17 04:00 Room Air 10/31/17 03:15 60 16 148/73 (98) 10/31/17 02:45 94 10/31/17 02:15 68 19 166/85 (112) 10/31/17 01:15 65 24 152/80 (104) 95 Room Air 10/31/17 00:10 72 24 143/83 (103) 97 Room Air 10/30/17 23:59 Room Air 10/30/17 23:10 97.9 72 18 144/77 (99) 97 Room Air 10/30/17 22:10 71 20 153/88 (109) 96 Room Air 10/30/17 22:00 72 20 153/88 (109) 96 Room Air 10/30/17 21:10 76 22 148/81 (103) 95 Room Air 10/30/17 20:45 Room Air 10/30/17 20:00 77 18 176/84 (114) 93 Room Air 10/30/17 19:20 98.0 83 28 169/89 (115) 97 Room Air 10/30/17 17:58 80 18 141/83 (102) 98 Room Air 10/30/17 16:20 98.2 90 18 94 Room Air Vital Signs Date Time Temp Pulse Resp B/P (MAP) Pulse Ox O2 Delivery O2 Flow Rate FiO2 11/02/17 07:58 Room Air 11/02/17 06:51 59 14 169/96 (120) 11/02/17 05:56 97 11/02/17 05:08 98.1 I&O Intake and Output 11/02/17 07:00 Intake Total 1600 ml Output Total 2900 ml Balance -1300 ml Intake Oral 1600 ml Output Urine Total 2900 ml # Voids 2 Labs: Laboratory Tests Test 11/02/17 06:20 Sodium Level 141 mmol/L (136-145) Potassium Level 3.6 mmol/L (3.5-5.1) Chloride Level 105 mmol/L (98-107) Carbon Dioxide Level 26 mmol/L (21-32) Anion Gap 10 (6-14) Blood Urea Nitrogen 9 mg/dL (7-20) Creatinine 0.5 mg/dL (0.6-1.0) L Estimated GFR (Cockcroft-Gault) 121.3 BUN/Creatinine Ratio 18 (6-20) Glucose Level 101 mg/dL (70-99) H Calcium Level 8.7 mg/dL (8.5-10.1) Magnesium Level 1.8 mg/dL (1.8-2.4) Total Bilirubin 1.5 mg/dL (0.2-1.0) H Aspartate Amino Transferase (AST) 41 U/L (15-37) H Alanine Aminotransferase (ALT) 53 U/L (14-59) Alkaline Phosphatase 47 U/L (46-116) Total Protein 7.4 g/dL (6.4-8.2) Albumin 3.7 g/dL (3.4-5.0) Albumin/Globulin Ratio 1.0 (1.0-1.7) Current Medications: Meds: Current Medications Multivitamins/ Minerals 10 ml/ Folic Acid 1 mg/ Thiamine HCl 100 mg/Sodium Chloride 1,011.2 ml @ 0 mls/hr 1X ONCE IV Last administered on 10/30/17at 16: 45; Start 10/30/17 at 16:45; Stop 10/30/17 at 16:46; Status DC Ceftriaxone Sodium 1 gm/ Sodium Chloride 50 ml @ 100 mls/hr 1X ONCE IV ; Start 10/30/17 at 18:00; Stop 10/30/17 at 18:29; Status UNV Ceftriaxone Sodium (Rocephin) 1 gm 1X ONCE IVP Last administered on 10/30/17at 18:00; Start 10/30/17 at 18:00; Stop 10/30/17 at 18:01; Status DC Ondansetron HCl (Zofran) 4 mg PRN Q4HRS PRN IV NAUSEA/VOMITING; Start 10/30/17 at 18:15; Stop 10/31/17 at 18:14; Status DC Morphine Sulfate (Morphine 2mg Syringe) 2 mg PRN Q2HR PRN IV PAIN; Start at 18:15; Stop 10/31/17 at 18:14; Status DC Sodium Chloride 1,000 ml @ 100 mls/hr Q10H IV Last administered on 10/31/17at 21:58; Start 10/30/17 at 18:02; Stop 10/31/17 at 18:01; Status DC Lorazepam (Ativan) 2 mg PRN Q1HR PRN IV For CIWA 8-14 Last administered on 11/01at 16:01; Start 10/31/17 at 02:15; Stop 11/02/17 at 09:36; Status DC Lorazepam (Ativan) 4 mg PRN Q1HR PRN IV For CIWA 15 or greater Last administered on 11/01/17at 23:11; Start 10/31/17 at 02:15; Stop 11/02/17 at 09:36 ; Status DC Haloperidol Lactate (Haldol) 5 mg PRN Q4HRS PRN IM Hallucinatns,Confusn, Delirium; Start 10/31/17 at 02:15; Stop 11/02/17 at 09:36; Status DC Diphenhydramine HCl (Benadryl) 25 mg PRN Q15MIN PRN IVP EPS symptoms 2'Haldol admin; Start 10/31/17 at 02:15; Stop 11/02/17 at 09:36; Status DC Potassium Chloride (Klor-Con) 40 meq 1X ONCE PO Last administered on at 07:39; Start 10/31/17 at 07:30; Stop 10/31/17 at 07:32; Status DC Multivitamins/ Minerals 10 ml/ Folic Acid 1 mg/ Thiamine HCl 100 mg/Sodium Chloride 1,011.2 ml @ 0 mls/hr 1X ONCE IV Last administered on 10/31/17at 09: 14; Start 10/31/17 at 09:00; Stop 10/31/17 at 09:02; Status DC Info (Non-Icu Electrolyte Protocol) 1 ea CONT PRN PRN MC PER PROTOCOL; Start at 11:00; Stop 11/02/17 at 09:36; Status DC Hydralazine HCl (Apresoline) 20 mg PRN Q6HRS PRN IV ELEVATED BP, SEE COMMENTS Last administered on 11/01/17at 14:35; Start 10/31/17 at 15:45; Stop 11/02/17 at 09:36; Status DC Potassium Chloride (Klor-Con) 40 meq 1X ONCE PO Last administered on at 07:39; Start 11/01/17 at 07:30; Stop 11/01/17 at 07:33; Status DC Multivitamins/ Minerals 10 ml/ Folic Acid 1 mg/ Thiamine HCl 100 mg/Sodium Chloride 1,011.2 ml @ 0 mls/hr 1X ONCE IV ; Start 11/02/17 at 09:00; Stop at 09:01; Status DC Active Scripts Active Reported Calcium 500 + Vit D 400 Tablet (Calcium Carbonate/Vitamin D3) 1 Each Tablet 1 Tab PO DAILY NOT TAKEN TODAY RESUME TOMORROW Multivitamins (Multivitamin) 1 Each Tablet 1 Tab PO DAILY NOT GIVEN THIS ADMIT MAY RESUME Levothyroxine Sodium 75 Mcg Tablet 75 Mcg PO DAILYAC LAST DOSE THIS MORNING NEXT DOSE TOMORROW MORNING I have reviewed the current psychotropics carefully including drug interactions. Risk benefit ratio favors no change other than as noted in my dictated progress note. Diagnosis: Problems: (1) Alcohol dependence with physiological dependence (2) Alcohol dependence with intoxication (3) Alcohol withdrawal MAGGIE WRIGHT MD Nov 02, 2017 12:52
--- NOTE | 2017-11-02 19:05 | DS ---
DATE OF DISCHARGE: 11/02/2017 HOSPITAL COURSE: A 72-year-old female in with alcohol abuse, fell, hit her chin, had several other problems. The patient made good progress during the rest of her hospitalization also was noted to have a urinary tract infection. She will be started on oral antibiotics for that as the report came back later in the day there. In any case, the patient made good progress and recovered from her overall illness and was discharged home, and also was noted to have a low T4 as well as hypokalemia, ethyl alcohol level 295, liver enzymes, AST slightly elevated at 42. Magnesium was low, was brought up into range. The patient was noted to have E. coli urinary tract infection. RICHARD ZHANG MD DR: RAMIRO/susan JOB#: [id number] / [id number]
--- NOTE | 2017-11-02 19:53 | CONS ---
DATE OF CONSULTATION: 11/01/2017 This late entry 11/01/2017 covers elements not covered in my initial note. I met with the patient evening of 11/01/2017. Discussed with nursing staff, reviewed the chart. IDENTIFYING DATA: The patient is a 72-year-old female seen in ICU bed 1, [facility], for a psychiatric consult requested by Dr. Dodd after the patient was admitted for alcohol detox. She has had symptoms of anxiety and weeping all the time and a history of chronic alcoholism with the added stressor of her passing away consequent to alcohol related problems in August of this year. CHIEF COMPLAINT: "I have had 2 treatment programs in the past at [place] in [place] and the [facility] in [place], [place]. I used to drink a pint of alcohol every day, but recently I have been drinking a fifth. I have been on Campral and naltrexone in the past and they did not help, and I have been through [facility] to [facility], but they keep changing counselors. Me and my would drink together, but he in August." HISTORY OF PRESENT ILLNESS: The patient has a long history of alcohol abuse, admitted through the Emergency Room. She had been drinking and falling at home and she has been extremely depressed. No active suicidal ideation. No clear symptoms of bipolar disorder. At admission, she had some neck tenderness, pain, contusion to her chest, and when I saw her evening of 11/01/2017, she had bruising on her facial area. Admission alcohol level was 300. No history of bipolar disorder. PAST PSYCHIATRIC HISTORY: As above. MEDICAL HISTORY: Cataracts, glaucoma, history of tonsillectomy, colonoscopy for polyps, GERD, tubal ligation, hysterectomy, salpingo-oophorectomy, kidney stones, stress incontinence, hypothyroidism, cirrhosis of the liver, depression. There is a notation of bipolar disorder, but details are unclear, and it is unclear to what extent mood vacillations have been evident from the alcohol usage. ALLERGIES: STATINS, LIBRIUM, TYLENOL, LITHIUM. FAMILY HISTORY: Noncontributory. SOCIAL HISTORY: The patient lives alone since her . She has a daughter in [facility] who has been in close contact with the patient and has supportive. Alcohol history is noted above. MENTAL STATUS EXAMINATION: The patient was seen individually evening of 11/01/2017. She is oriented to place and situation. Speech coherent, abstraction fair. Computation, she could do one step of serial 7, but spelled world forward and backward with no errors. She is well oriented to the daytime situation. No suicidal or homicidal ideation. No clear psychotic symptoms. Mood does appear depressed. Affect is mood congruent, but it is too close to her last usage of alcohol to be able to assess this separate from the effects of alcohol. IMPRESSION: Alcohol abuse, dependence, withdrawal; history of major depressive disorder versus bipolar disorder, depressed. Rest as above. PLAN: From a psychiatric standpoint, I have discussed at length with the patient about outpatient followup at the [facility]. She had many reasons why she did not want to do this including frequent change of counselors. I have tried to reassure her that the alcohol counselor has a fairly consistent, but nevertheless, she needs to get in to see someone on a consistent basis or something arranged together with her daughter. I do feel an assessment of her mood symptoms with a unipolar depression or bipolar will need to be made when she has been abstinent from alcohol for sometime and past records will be needed as well. At this stage, the patient is almost ready to go back home, according to her desire, and she does state she wants to remain abstinent from alcohol, which is a positive. Dr. Dodd, thank you for the opportunity to participate in your patient's care. MAGGIE WRIGHT MD DR: GREGORY/susan JOB#: [id number] / [id number]
== END 2017-11-02 09:36 | disposition home or self-care (01) | DRG 89 ==
LOC: ER 15:59 → ICU 17:55
PROVIDERS: ADMIT Family Medicine; ATTEND Family Medicine
DX: S06.0X0A Concussion without loss of consciousness, initial encounter (principal); N39.0 Urinary tract infection, site not specified; F10.239 Alcohol dependence with withdrawal, unspecified; R29.6 Repeated falls; S00.93XA Contusion of unspecified part of head, initial encounter; F10.20 Alcohol dependence, uncomplicated; B96.20 Unspecified Escherichia coli [E. coli] as the cause of diseases classified elsewhere; E03.9 Hypothyroidism, unspecified; F10.229 Alcohol dependence with intoxication, unspecified; F31.9 Bipolar disorder, unspecified; I10 Essential (primary) hypertension; K21.9 Gastro-esophageal reflux disease without esophagitis; K74.60 Unspecified cirrhosis of liver; Y90.8 Blood alcohol level of 240 mg/100 ml or more; Z87.442 Personal history of urinary calculi; Z90.710 Acquired absence of both cervix and uterus; Z83.3 Family history of diabetes mellitus; E87.6 Hypokalemia; W18.39XA Other fall on same level, initial encounter; Y93.89 Activity, other specified; Y92.89 Other specified places as the place of occurrence of the external cause; Y99.8 Other external cause status
CPT/HCPCS: 36415; 70450; 70486; 71046; 72125; 76700; 80048; 80053; 80076; 80307; 81001; 83690; 83735; 84436; 84484; 85025; 87086; 87186; 87641; 93005; 96365; 96375; G0480; J0360; J0696; J2060; 99285-25; G0479; J7030

== ENCOUNTER 2017-12-24 18:17 | Inpatient (IN) | payer MEDICARE ==
[~2017-12-24] VITALS: Ht 162.6 cm; Wt 75.4 kg
--- NOTE | 2017-12-24 18:20 | ED.ADGEN ---
Past History Past Medical History: Alcoholism, High Cholesterol, Hypertension, Other Past Surgical History: , Hysterectomy, Tonsillectomy Smoking: Non-smoker Alcohol Use: Heavy Drug Use: None Adult General Chief Complaint Chief Complaint ".. I don't feel well... and need to drink ... ".. " I trying to quit again... I started again after my 3-4 months ago.. and now I am trying to quit again... I get really shaky...I normally see Dr. Dodd... " HPI HPI Patient is a 72 year old female who presents with above hx and complaints intoxication and confusion. Patient has long history of alcohol abuse with periodic episodes of abstinence. Patient states she had been sober for approximately year until her approximately 6 months ago. Since that time she been drinking very heavily. Patient states she tried to stop drinking yesterday but felt worse and became very shaky. Patient has history of alcohol withdrawal tremors.. and confusion. No specific hx of tonic clonic seizures with stopping alcohol. Patient stated she resumed drinking heavily today. Patient denies any travel. Patient denies any ill contacts. Patient denies any falls or trauma. Patient normally follows Dr. Robledo. Review of Systems Review of Systems Constitutional: Denies fever or chills [] Eyes: Denies change in visual acuity, redness, or eye pain [] HENT: Denies nasal congestion or sore throat [] Respiratory: Denies cough or shortness of breath [] Cardiovascular: No additional information not addressed in HPI [] GI: Denies abdominal pain, nausea, vomiting, bloody stools or diarrhea [] : Denies dysuria or hematuria [] Musculoskeletal: Denies back pain or joint pain [] Integument: Denies rash or skin lesions [] Neurologic: Denies headache, focal weakness or sensory changes []complains of tremors. Complains of contusion Endocrine: Denies polyuria or polydipsia [] All other systems were reviewed and found to be within normal limits, except as documented in this note. Family History Family History Noncontributory Current Medications Current Medications Current Medications Medications (Trade) Dose Ordered Sig/Nova Start Time Stop Time Status Last Admin Dose Admin Lorazepam (Ativan) 2 mg 1X ONCE 12/24/17 19:15 12/24/17 19:16 DC 12/24/17 19:54 2 MG Multivitamins/ Minerals 10 ml/ Folic Acid 1 mg/ Thiamine HCl 100 mg/Sodium Chloride 1,011.1 ml @ 1,000 mls/ hr 1X ONCE 12/24/17 18:45 12/24/17 19:45 DC 12/24/17 19:50 1,000 MLS/HR Allergies Allergies Allergies Coded Allergies Type Severity Reaction Last Updated Verified Bsenqxb-Erx-Khh Reductase Inhibitor Allergy Intermediate 05/18/14 Yes lithium Allergy Intermediate 05/18/14 Yes I S O L A T I O N *CONTACT* Allergy Unknown 05/17/14 No acetaminophen Adverse Reaction Severe 08/20/14 Yes chlordiazepoxide Adverse Reaction Intermediate 08/20/14 Yes Physical Exam Physical Exam Constitutional: Moderate the acute distress, very intoxicated in appearance. [] HENT: Normocephalic, atraumatic, bilateral external ears normal, oropharynx moist, no oral exudates, nose normal. [] Eyes: PERRLA, EOMI, conjunctiva normal, no discharge. [] Neck: Normal range of motion, no tenderness, supple, no stridor. [] Cardiovascular:Heart rate regular rhythm, no murmur [] Lungs & Thorax: Bilateral breath sounds equal at apex on auscultation [] Abdomen: Bowel sounds normal, soft, no tenderness, no masses, no pulsatile masses. [Old scar. Skin: Warm, dry, no erythema, no rash. [] Back: No tenderness, no CVA tenderness. [] Extremities: No tenderness, no cyanosis, no clubbing, ROM intact, no edema. [] Neurologic: Alert and oriented X 3, normal motor function, normal sensory function, no focal deficits noted. []DTRs are +2 patella and brachial. 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 Psychologic: Affect anxious, poor short term memory, intoxicated, mood depressed. Current Patient Data Vital Signs Vital Signs Date Time Temp Pulse Resp B/P (MAP) Pulse Ox O2 Delivery O2 Flow Rate FiO2 12/24/17 19:20 61 22 130/70 (90) 92 Room Air Lab Results Laboratory Tests Test 12/24/17 18:32 12/24/17 18:50 White Blood Count 4.0 x10^3/uL (4.0-11.0) Red Blood Count 3.83 x10^6/uL (3.50-5.40) Hemoglobin 12.6 g/dL (12.0-15.5) Hematocrit 37.3 % (36.0-47.0) Mean Corpuscular Volume 97 fL (79-100) Mean Corpuscular Hemoglobin 33 pg (25-35) Mean Corpuscular Hemoglobin Concent 34 g/dL (31-37) Red Cell Distribution Width 14.7 % (11.5-14.5) H Platelet Count 128 x10^3/uL (140-400) L Neutrophils (%) (Auto) 53 % (31-73) Lymphocytes (%) (Auto) 28 % (24-48) Monocytes (%) (Auto) 15 % (0-9) H Eosinophils (%) (Auto) 2 % (0-3) Basophils (%) (Auto) 2 % (0-3) Neutrophils # (Auto) 2.1 x10^3uL (1.8-7.7) Lymphocytes # (Auto) 1.1 x10^3/uL (1.0-4.8) Monocytes # (Auto) 0.6 x10^3/uL (0.0-1.1) Eosinophils # (Auto) 0.1 x10^3/uL (0.0-0.7) Basophils # (Auto) 0.1 x10^3/uL (0.0-0.2) Sodium Level 142 mmol/L (136-145) Potassium Level 4.2 mmol/L (3.5-5.1) Chloride Level 103 mmol/L (98-107) Carbon Dioxide Level 32 mmol/L (21-32) Anion Gap 7 (6-14) Blood Urea Nitrogen 18 mg/dL (7-20) Creatinine 0.6 mg/dL (0.6-1.0) Estimated GFR (Cockcroft-Gault) 98.3 Glucose Level 100 mg/dL (70-99) H Calcium Level 8.7 mg/dL (8.5-10.1) Magnesium Level 1.9 mg/dL (1.8-2.4) Ammonia 45 mcmol/L (11-34) H Creatine Kinase 151 U/L (26-192) Creatine Kinase MB (Mass) 1.3 ng/mL (0.0-3.6) Creatine Kinase MB Relative Index 0.9 % (0-4) Troponin I Quantitative < 0.017 ng/mL (0-0.055) DC-Rgu-F-Type Natriuretic Peptide 66 pg/mL (0-124) Salicylates Level 0.9 mg/dL (2.8-20.0) L Salicylate Last Dose Date Unk Salicylate Last Dose Time Unk Acetaminophen Level < 2.0 mcg/mL (10-30) L Acetaminophen Last Dose Date Unk Acetaminophen Last Dose Time Unk Ethyl Alcohol Level 299 mg/dL (0-10) H Prothrombin Time < 9.3 SEC (9.4-11.4) L Prothrombin Time INR 0.9 (0.9-1.1) PTT 24 SEC (23-33) EKG EKG My interpretation of EKG shows a sinus rhythm at 80 bpm. There is some contour changes anterior lateral leads. But no findings acute STEMI of contralateral changes[] Radiology/Procedures Radiology/Procedures My interpretation CT of head shows no shift, mass, edema, bleed, or fracture. My interpretation of chest x-ray shows no acute cardiopulmonary findings. There is some areas of linear atelectasis . Course & Med Decision Making Course & Med Decision Making Pertinent Labs and Imaging studies reviewed. (See chart for details) Stress presentation, testing and treatment plan with Dr. Dodd. Will admit for further evaluation and treatment. We will initiate alcohol withdrawal observation and treatment. [] Final Impression Final Impression 1. Hx. Alcohol Abuse 299 2. Hx of Alcohol Withdrawal[] 3. Thrombocytopenia Dragon Disclaimer Dragon Disclaimer This electronic medical record was generated, in whole or in part, using a voice recognition dictation system. LENIN CALLES MD Dec 24, 2017 18:20
[2017-12-24] MEDS ORDERED: MVI, ADULT NO.4 WITH VIT K 10 ML, FOLIC ACID SYRINGE for ER 1 MG, THIAMINE INJ 100 MG i... IV ONE ×4 (18:45)
[2017-12-24 19:06] LABS: BASO # 0.1 x10^3/uL (0.0-0.2); BASO % 2 % (0-3); EOS # 0.1 x10^3/uL (0.0-0.7); EOS % 2 % (0-3); HEMATOCRIT 37.3 % (36.0-47.0); HEMOGLOBIN 12.6 g/dL (12.0-15.5); LYMPH # 1.1 x10^3/uL (1.0-4.8); LYMPH % 28 % (24-48); MEAN CORPUSCULAR HEMOGLOBIN 33 pg (25-35); MEAN CORPUSCULAR HGB CONC 34 g/dL (31-37); MEAN CORPUSCULAR VOLUME 97 fL (79-100); MONO # 0.6 x10^3/uL (0.0-1.1); MONO % 15 % (0-9); NEUT # 2.1 x10^3uL (1.8-7.7); NEUT % 53 % (31-73); PLATELET COUNT 128 x10^3/uL (140-400); RED BLOOD COUNT 3.83 x10^6/uL (3.50-5.40); RED CELL DISTRIBUTION WIDTH 14.7 % (11.5-14.5)
[2017-12-24 19:14] LABS: ETHANOL 299 mg/dL (0-10); SALIC 0.9 mg/dL (2.8-20.0)
[2017-12-24] MEDS ORDERED: LORazepam 1 MG TABLET PO ONE (19:15)
[2017-12-24 19:17] LABS: ACETAMIN < 2.0 mcg/mL (10-30)
--- NOTE | 2017-12-24 19:21 | RAD ---
PQRS Compliance statement: One or more of the following individualized dose reduction techniques were utilized for this examination: 1. Automated exposure control. 2. Adjustment of the mA and/or kV according to patient size. 3. Use of iterative reconstruction technique. Indication:AMS, POSSIBLE OD. TECHNIQUE: CT head without IV contrast COMPARISON:10/30/2017 FINDINGS: No pathologic extra-axial or intra-axial fluid collection. Mild diffuse cerebral atrophy. The ventricles and basal cisterns are within normal limits. No acute intracranial bleed. No focal loss of melgar-white differentiation. No suspicious calvarial lesion. Visualized paranasal sinuses and mastoid air cells are clear. IMPRESSION: No acute intracranial process. If concern for acute ischemic stroke is high, please consider MRI brain. Electronically signed by: Nadeem Torres DO (12/24/2017 7:18 PM) [facility]
[2017-12-24 19:30] LABS: CALCIUM 8.7 mg/dL (8.5-10.1); CREATININE 0.6 mg/dL (0.6-1.0); GFR 98.3; MAGNESIUM 1.9 mg/dL (1.8-2.4); POTASSIUM 4.2 mmol/L (3.5-5.1)
[2017-12-24] MEDS ORDERED: ONDANSETRON PF 4 MG/2 ML VIAL. IV PRN (19:45)
[2017-12-24] MEDS ORDERED: LORazepam 2 MG/ML VIAL IV PRN (19:45)
[2017-12-24] MEDS: IV RINGERS SOLUTION,LACTATED 1,000 ML IV SCH (19:54)
[2017-12-24] MEDS ORDERED: cloNIDine TTS-2 1 PATCH PATCH TD ONE (20:00)
--- NOTE | 2017-12-24 20:06 | EKG ---
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
[2017-12-24] MEDS: LORazepam 1 MG TABLET PO SCH (21:00)
[2017-12-24 22:51] VITALS: BP 131/78
[2017-12-24 22:55] LABS: AMPHETAMINE/METHAMPHETAMINE NEG (NEG); BARBITURATES NEG (NEG); BENZODIAZEPINES NEG (NEG); CANNABINOIDS NEG (NEG); COCAINE NEG (NEG); METHADONE NEG (NEG); OPIATES NEG (NEG); PHENCYCLIDINE NEG (NEG)
[2017-12-24 22:56] LABS: BACTERIA,URINE 0 /HPF (0-FEW); BILIRUBIN,URINE NEG (NEG); CLARITY,URINE CLEAR; COLOR,URINE YELLOW; GLUCOSE,URINE NEG (NEG); NITRITE,URINE NEG (NEG); RBC,URINE 0 /HPF (0-2); SQUAMOUS EPITHELIAL CELL,UR OCC /LPF; UROBILINOGEN,URINE 0.2 mg/dL (0.2 mg/dL)
[2017-12-25] MEDS: IV RINGERS SOLUTION,LACTATED 1,000 ML IV SCH (02:24)
[2017-12-25] MEDS ORDERED: LISI-334 PO (03:58)
[2017-12-25] MEDS ORDERED: NIFE60TA14 PO (03:58)
[2017-12-25] MEDS ORDERED: HYDR12.58 PO (03:58)
[2017-12-25] MEDS ORDERED: LEVO50TA5 PO (03:58)
[2017-12-25 05:06] VITALS: BP 157/88
[2017-12-25 06:53] LABS: BASO % 1 % (0-3); EOS # 0.1 x10^3/uL (0.0-0.7); EOS % 2 % (0-3); HEMATOCRIT 35.1 % (36.0-47.0); HEMOGLOBIN 11.8 g/dL (12.0-15.5); LYMPH # 0.6 x10^3/uL (1.0-4.8); LYMPH % 14 % (24-48); MEAN CORPUSCULAR HEMOGLOBIN 33 pg (25-35); MEAN CORPUSCULAR HGB CONC 34 g/dL (31-37); MEAN CORPUSCULAR VOLUME 97 fL (79-100); MONO # 0.4 x10^3/uL (0.0-1.1); MONO % 10 % (0-9); NEUT % 73 % (31-73); PLATELET COUNT 110 x10^3/uL (140-400); RED BLOOD COUNT 3.61 x10^6/uL (3.50-5.40); RED CELL DISTRIBUTION WIDTH 14.7 % (11.5-14.5); WHITE BLOOD COUNT 4.1 x10^3/uL (4.0-11.0)
[2017-12-25 07:19] LABS: ALBUMIN 3.2 g/dL (3.4-5.0); ALBUMIN/GLOBULIN RATIO 0.9 (1.0-1.7); CALCIUM 7.8 mg/dL (8.5-10.1); CREATININE 0.6 mg/dL (0.6-1.0); GFR 98.3; POTASSIUM 3.6 mmol/L (3.5-5.1); TOTAL BILIRUBIN 0.6 mg/dL (0.2-1.0); TOTAL PROTEIN 6.6 g/dL (6.4-8.2)
[2017-12-25] MEDS ORDERED: LEVOTHYROXINE 75 MCG TABLET PO SCH (07:30)
[2017-12-25] MEDS ORDERED: LEVOTHYROXINE 50 MCG TABLET PO SCH ×2 (07:30→08:00)
[2017-12-25] MEDS: LORazepam 1 MG TABLET PO SCH (08:14)
[2017-12-25 08:24] VITALS: BP 157/88
[2017-12-25] MEDS: CALCIUM CARB/VIT D3 500/200 TABLET PO SCH ×2 (08:24→08:30)
--- NOTE | 2017-12-25 08:48 | RAD ---
Chest radiograph 12/24/2017 6:38 PM INDICATION: Altered mental status, possible overdose COMPARISON: November 01, 2017 TECHNIQUE: Frontal view of the chest is provided. FINDINGS: The cardiomediastinal silhouette is within normal limits. There are no pleural effusions. There is no pulmonary vascular congestion. There is no pneumothorax. The lungs are clear. There is subsegmental atelectasis in the left midlung. No significant osseous abnormality is identified. IMPRESSION: No acute cardiopulmonary process. Electronically signed by: Ingrid Perez MD (12/25/2017 8:45 AM) [id number]
[2017-12-25] MEDS ORDERED: MULTIVITAMIN with MINERAL TABLET. PO SCH (09:00)
[2017-12-25] MEDS ORDERED: hydroCHLOROthiazide 12.5 MG CAPSULE PO SCH (09:00)
[2017-12-25] MEDS ORDERED: LISINOPRIL 20 MG TABLET PO SCH (09:00)
[2017-12-25] MEDS ORDERED: MVI, ADULT NO.4 WITH VIT K 10 ML, FOLIC ACID INJ 1 MG, THIAMINE INJ 100 MG in IV NORMAL... IV SCH ×4 (09:00)
== END 2017-12-25 10:39 | disposition home or self-care (01) | DRG 897 ==
LOC: ER 18:17 → 1 SOUTH 19:30
PROVIDERS: ADMIT Family Medicine; ATTEND Family Medicine
DX: F10.221 Alcohol dependence with intoxication delirium (principal); D69.6 Thrombocytopenia, unspecified; I10 Essential (primary) hypertension; E78.00 Pure hypercholesterolemia, unspecified; Z90.710 Acquired absence of both cervix and uterus; Z90.49 Acquired absence of other specified parts of digestive tract; Z88.8 Allergy status to other drugs, medicaments and biological substances; Z79.899 Other long term (current) drug therapy; M81.0 Age-related osteoporosis without current pathological fracture; Z96.1 Presence of intraocular lens; F32.9 Major depressive disorder, single episode, unspecified; Y90.0 Blood alcohol level of less than 20 mg/100 ml; F41.9 Anxiety disorder, unspecified; Z98.51 Tubal ligation status; Z98.42 Cataract extraction status, left eye; Z82.49 Family history of ischemic heart disease and other diseases of the circulatory system; Z82.3 Family history of stroke
CPT/HCPCS: 36415; 70450; 71045; 80048; 80053; 80307; 81001; 82140; 82553; 83690; 83735; 83880; 84484; 85025; 85610; 85730; 87086; 93005; G0238; G0480; G6039; J2405; J7120; 82003; 99285-25; G0479; J7030

== ENCOUNTER 2017-12-28 13:48 | Emergency (ER) | payer MEDICARE ==
[~2017-12-28] VITALS: Ht 162.6 cm; Wt 68.5 kg
[~2017-12-28 13:48] MED LIST changes: +HYDR12.58 PO; +LEVO50TA5 PO; +LISI-334 PO; +NIFE60TA14 PO
--- NOTE | 2017-12-28 13:58 | PHYS DOC ---
Past History Past Medical History: Alcoholism, Hypertension, Hypothyroid Past Surgical History: No Surgical History Smoking: Non-smoker Alcohol Use: Heavy Drug Use: None Adult General HPI HPI patient is a 72-year-old female who presents to the emergency department via EMS, for "detox". She states that she does not drink all the time but when she drinks she drinks heavily. She states she drinks at least a pint daily. She states her last drink was last night. She states she is feeling tremulous needs "detox". She states she has not been to inpatient therapy in over a year but went to an outpatient mental health center, and was referred to the emergency department so she could be transferred to [place] where she might be able to go undergo inpatient detox. The patient denies any suicidal ideation. She has not had any fevers or chills, nausea, vomiting. Other than feeling tremulous and anxious she has no other symptoms. She is not having any pain at this time. She does ambulate with a steady gait. There are no alleviating, or exacerbating factors to her symptoms. Review of Systems Review of Systems Constitutional: Denies fever or chills [] Eyes: Denies change in visual acuity, redness, or eye pain [] HENT: Denies nasal congestion or sore throat [] Respiratory: Denies cough or shortness of breath [] Cardiovascular: The patient denies any shortness of breath, chest pain, palpitations, or orthopnea [] GI: Denies abdominal pain, nausea, vomiting, bloody stools or diarrhea [] : Denies dysuria or hematuria [] Musculoskeletal: Denies back pain or joint pain [] Integument: Denies rash or skin lesions [] Neurologic: Denies headache, focal weakness or sensory changes [] Endocrine: Denies polyuria or polydipsia [] Psychiatric: The patient denies any suicidal or homicidal thoughts. [] All other systems were reviewed and found to be within normal limits, except as documented in this note. Allergies Allergies Allergies Coded Allergies Type Severity Reaction Last Updated Verified Jsbzeyu-Ien-Cut Reductase Inhibitor Allergy Intermediate 05/18/14 Yes lithium Allergy Intermediate 05/18/14 Yes I S O L A T I O N *CONTACT* Allergy Unknown 05/17/14 No acetaminophen Adverse Reaction Severe 08/20/14 Yes chlordiazepoxide Adverse Reaction Intermediate 08/20/14 Yes Physical Exam Physical Exam PHYSICAL EXAM: CONSTITUTIONAL: Well developed, well nourished. The order of alcohol detectable on the patient's breath. HEAD: normocephalic, atraumatic EENT: PERRL, EOMI. Conjunctivae are injected bilaterally. There is no nystagmus noted., sclerae non-icteric; moist mucous membranes. NECK: Supple, non-tender; no meningismus. LUNGS: Lungs CTA, breathing even and unlabored. Normal air movement. HEART: Regular rate and rhythm, no murmur CHEST: No deformity; non-tender ABDOMEN: The abdomen is soft, and non-tender, no masses or bruits. EXTREM: Normal ROM; no deformity, no calf tenderness. Normal pulses palpable in all extremities. There is no pedal edema. SKIN: No rash; no diaphoresis NEURO: Alert; normal speech and cognition; CN's grossly intact; strength grossly intact without focal deficit. The patient does exhibit mild tremulousness. Mental status is otherwise normal. BACK: No CVA TTP. EKG EKG [Normal sinus rhythm at a rate of 87 beats for minute, normal axis, normal intervals. There are no acute ischemic ST/T changes.] Radiology/Procedures Radiology/Procedures [] Course & Med Decision Making Course & Med Decision Making Pertinent Labs and Imaging studies reviewed. (See chart for details) [4:10 PM: The patient's condition remained stable at this time. She was like to go home and take care of her cat. She does have resources for [facility]. She is not suicidal and does not warrant emergent treatment but I did stress the importance of obtaining help with her alcoholism. Return precautions were discussed in detail.] Dragon Disclaimer Dragon Disclaimer This electronic medical record was generated, in whole or in part, using a voice recognition dictation system. Departure Departure: Impression: Primary Impression: Alcoholism Disposition: HOME, SELF-CARE Condition: STABLE Referrals: RICHARD ZHANG MD (PCP) Patient Instructions: Alcohol Intoxication, Alcohol Problems ENE MARTINEZ MD Dec 28, 2017 13:58
[2017-12-28] MEDS ORDERED: MVI, ADULT NO.4 WITH VIT K 10 ML, FOLIC ACID SYRINGE for ER 1 MG, THIAMINE INJ 100 MG i... IV SCH ×4 (14:30)
[2017-12-28] MEDS ORDERED: LORazepam 2 MG/ML VIAL IV ONE (14:30)
[2017-12-28 15:01] LABS: BASO # 0.1 x10^3/uL (0.0-0.2); BASO % 1 % (0-3); EOS % 0 % (0-3); HEMATOCRIT 37.4 % (36.0-47.0); HEMOGLOBIN 12.6 g/dL (12.0-15.5); LYMPH # 0.9 x10^3/uL (1.0-4.8); LYMPH % 16 % (24-48); MEAN CORPUSCULAR HEMOGLOBIN 33 pg (25-35); MEAN CORPUSCULAR HGB CONC 34 g/dL (31-37); MEAN CORPUSCULAR VOLUME 98 fL (79-100); MONO # 0.5 x10^3/uL (0.0-1.1); MONO % 9 % (0-9); NEUT % 73 % (31-73); PLATELET COUNT 118 x10^3/uL (140-400); RED BLOOD COUNT 3.83 x10^6/uL (3.50-5.40); RED CELL DISTRIBUTION WIDTH 14.6 % (11.5-14.5); WHITE BLOOD COUNT 5.5 x10^3/uL (4.0-11.0)
[2017-12-28 15:13] LABS: ALBUMIN 4.5 g/dL (3.4-5.0); CALCIUM 9.6 mg/dL (8.5-10.1); CREATININE 1.2 mg/dL (0.6-1.0); DIRECT BILIRUBIN 0.3 mg/dL (0.0-0.2); GFR 44.2; MAGNESIUM 1.6 mg/dL (1.8-2.4); POTASSIUM 3.7 mmol/L (3.5-5.1); TOTAL BILIRUBIN 1.1 mg/dL (0.2-1.0); TOTAL PROTEIN 8.1 g/dL (6.4-8.2)
[2017-12-28 15:16] LABS: ETHANOL 37 mg/dL (0-10); SALIC 0.9 mg/dL (2.8-20.0)
[2017-12-28 15:18] LABS: ACETAMIN < 2.0 mcg/mL (10-30)
--- NOTE | 2017-12-28 15:32 | EKG ---
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
[2017-12-28] MEDS ORDERED: MAGNESIUM OXIDE 400 MG TABLET PO ONE (16:30)
[2017-12-28 16:38] VITALS: BP 118/63
== END 2017-12-28 16:38 | disposition home or self-care (01) ==
LOC: ER 13:48
DX: F10.20 Alcohol dependence, uncomplicated (principal); I10 Essential (primary) hypertension; E03.9 Hypothyroidism, unspecified; Z88.8 Allergy status to other drugs, medicaments and biological substances; Z91.041 Radiographic dye allergy status; Z88.6 Allergy status to analgesic agent; Y90.1 Blood alcohol level of 20-39 mg/100 ml
CPT/HCPCS: 36415; 80048; 80076; 83735; 85025; 85610; 85730; 93005; 96365; 96375; 99285; G0480; G6039; J2060; 82003; J7030

== ENCOUNTER 2018-02-08 14:05 | Emergency (ER) | payer MEDICARE ==
[~2018-02-08] VITALS: Ht 170.2 cm; Wt 72.1 kg
[2018-02-08] MEDS ORDERED: DIPHTH,PERTUSS(ACELL),TET TOX 0.5 ML DISP.SYRIN. VAX IM ONE (14:30)
--- NOTE | 2018-02-08 14:58 | RAD ---
History: Fall, pain, swelling, bruising. Comparison: None. Findings: AP, lateral, and oblique views of the left ankle. Large amount of soft tissue swelling is seen. Mildly displaced obliquely oriented fracture seen involving the lateral malleolus extending to the level the ankle. Medial malleolar tip demonstrates mildly displaced fracture. No significant widening of the ankle mortise is seen. Small plantar calcaneal and Achilles tendon insertional enthesophytes are present. Impression: Acute bimalleolar fracture. Associated soft tissue swelling. Electronically signed by: Ganesh Morrow MD (02/08/2018 2:55 PM) [place] [id number]
--- NOTE | 2018-02-08 15:07 | RAD ---
PQRS Compliance Statement: One or more of the following individualized dose reduction techniques were utilized for this examination: 1. Automated exposure control 2. Adjustment of the mA and/or kV according to patient size 3. Use of iterative reconstruction technique CT HEAD AND CERVICAL SPINE WITHOUT CONTRAST History: Fall today, FX ankle. Pt intoxicated. Comparison: CT head without contrast, December 24, 2017. Procedure: Axial images are obtained of the head from the skull base through the vertex without IV contrast. Noncontrast helical CT of the cervical spine was performed. Axial, sagittal, and coronal reconstructions were obtained. Findings: The ventricles and sulci are normal for the patient's age. No mass-effect, midline shift, hemorrhage or obvious acute infarction is identified. Basilar cisterns are patent. Bone windows demonstrate no significant calvarial abnormality. The visualized paranasal sinuses are clear. Mastoid air cells are well aerated. Motion artifact severely limits evaluation of the cervical spine. A subtle fracture could be obscured. Multilevel facet hypertrophy. No obvious acute displaced fracture is identified. Grade 1 anterolisthesis of C3 on C4 and C4 on C5. There is disc space narrowing of C5/C6. Atherosclerotic bilateral carotid bulbs. The visualized lung apices are clear. IMPRESSION: 1. No acute intracranial abnormality. 2. Cervical spine is limited due to motion artifact. Electronically signed by: Deejay Pitt MD (02/08/2018 3:04 PM) [id number]
[2018-02-08 16:07] LABS: BASO % 2 % (0-3); EOS # 0.1 x10^3/uL (0.0-0.7); EOS % 3 % (0-3); HEMATOCRIT 36.7 % (36.0-47.0); HEMOGLOBIN 12.4 g/dL (12.0-15.5); LYMPH # 0.6 x10^3/uL (1.0-4.8); LYMPH % 21 % (24-48); MEAN CORPUSCULAR HEMOGLOBIN 34 pg (25-35); MEAN CORPUSCULAR HGB CONC 34 g/dL (31-37); MEAN CORPUSCULAR VOLUME 99 fL (79-100); MONO # 0.3 x10^3/uL (0.0-1.1); MONO % 10 % (0-9); NEUT # 1.8 x10^3uL (1.8-7.7); NEUT % 66 % (31-73); PLATELET COUNT 59 x10^3/uL (140-400); RED BLOOD COUNT 3.71 x10^6/uL (3.50-5.40); RED CELL DISTRIBUTION WIDTH 15.4 % (11.5-14.5); WHITE BLOOD COUNT 2.7 x10^3/uL (4.0-11.0)
[2018-02-08 16:22] LABS: ALBUMIN/GLOBULIN RATIO 1.3 (1.0-1.7); CALCIUM 8.3 mg/dL (8.5-10.1); CREATININE 0.5 mg/dL (0.6-1.0); GFR 121.3; TOTAL BILIRUBIN 0.7 mg/dL (0.2-1.0)
--- NOTE | 2018-02-08 16:52 | PHYS DOC ---
Past History Past Medical History: Alcoholism, Hypertension, Hypothyroid Past Surgical History: No Surgical History Smoking: Non-smoker Alcohol Use: Heavy Drug Use: None Adult General Chief Complaint Chief Complaint: ANKLE PROBLEM HPI HPI Patient is a 72 year old female who is in by EMS because of a fall and injury to left ankle. Patient states she had an accidental fall from a standing position at her home and had injury to left ankle. Patient states the fall happened couple hours earlier and she was not able to reach the phone and finally she crawled and called 911. Patient denies head injury and loss of consciousness and other injuries. Patient has history of alcoholism and denies taking any alcohol today but states she had lots of alcohol yesterday. Review of Systems Review of Systems Constitutional: Denies fever or chills [] Eyes: Denies change in visual acuity, redness, or eye pain [] HENT: Denies nasal congestion or sore throat [] Respiratory: Denies cough or shortness of breath [] Cardiovascular: No additional information not addressed in HPI [] GI: Denies abdominal pain, nausea, vomiting, bloody stools or diarrhea [] : Denies dysuria or hematuria [] Musculoskeletal: Denies back pain, reports joint pain [] Integument: Denies rash or skin lesions [] Neurologic: Denies headache, focal weakness or sensory changes [] Endocrine: Denies polyuria or polydipsia [] All other systems were reviewed and found to be within normal limits, except as documented in this note. Current Medications Current Medications Current Medications Medications (Trade) Dose Ordered Sig/Nova Start Time Stop Time Status Last Admin Dose Admin Diphtheria/ Tetanus/Acell Pertussis (Boostrix) 0.5 ml ONCE ONCE 02/08/18 14:30 02/08/18 14:31 DC 02/08/18 15:40 0.5 ML Allergies Allergies Allergies Coded Allergies Type Severity Reaction Last Updated Verified Aoddkxz-Xfk-Vjd Reductase Inhibitor Allergy Intermediate 05/18/14 Yes lithium Allergy Intermediate 05/18/14 Yes I S O L A T I O N *CONTACT* Allergy Unknown 05/17/14 No acetaminophen Adverse Reaction Severe 08/20/14 Yes chlordiazepoxide Adverse Reaction Intermediate 08/20/14 Yes Physical Exam Physical Exam Constitutional: Well nourished, mild distress, non-toxic appearance, smell of alcohol on breath. [] HENT: Normocephalic, atraumatic. [] Eyes: PERRLA, EOMI, conjunctiva normal, no discharge. [] Neck: Normal range of motion, no tenderness, supple, no stridor. [] Cardiovascular:Heart rate regular rhythm, no murmur [] Lungs & Thorax: Bilateral breath sounds clear to auscultation [] Abdomen: Bowel sounds normal, soft, no tenderness, no masses, no pulsatile masses. [] Skin: Warm, dry, no erythema, no rash. [] Back: No tenderness, no CVA tenderness. [] Extremities: Left ankle with moderate edema and tenderness in lateral and medial malleolus with painful range of motion, no neurovascular deficit. [] Neurologic: Alert and oriented, normal motor function, normal sensory function, no focal deficits noted. [] Psychologic: Affect anxious, intoxicated Current Patient Data Vital Signs Vital Signs Date Time Temp Pulse Resp B/P (MAP) Pulse Ox O2 Delivery O2 Flow Rate FiO2 02/08/18 14:10 98.1 88 22 97 Room Air Lab Results Laboratory Tests Test 02/08/18 15:48 White Blood Count 2.7 x10^3/uL (4.0-11.0) L Red Blood Count 3.71 x10^6/uL (3.50-5.40) Hemoglobin 12.4 g/dL (12.0-15.5) Hematocrit 36.7 % (36.0-47.0) Mean Corpuscular Volume 99 fL (79-100) Mean Corpuscular Hemoglobin 34 pg (25-35) Mean Corpuscular Hemoglobin Concent 34 g/dL (31-37) Red Cell Distribution Width 15.4 % (11.5-14.5) H Platelet Count 59 x10^3/uL (140-400) L Neutrophils (%) (Auto) 66 % (31-73) Lymphocytes (%) (Auto) 21 % (24-48) L Monocytes (%) (Auto) 10 % (0-9) H Eosinophils (%) (Auto) 3 % (0-3) Basophils (%) (Auto) 2 % (0-3) Neutrophils # (Auto) 1.8 x10^3uL (1.8-7.7) Lymphocytes # (Auto) 0.6 x10^3/uL (1.0-4.8) L Monocytes # (Auto) 0.3 x10^3/uL (0.0-1.1) Eosinophils # (Auto) 0.1 x10^3/uL (0.0-0.7) Basophils # (Auto) 0.0 x10^3/uL (0.0-0.2) Sodium Level 144 mmol/L (136-145) Potassium Level 4.0 mmol/L (3.5-5.1) Chloride Level 103 mmol/L (98-107) Carbon Dioxide Level 26 mmol/L (21-32) Anion Gap 15 (6-14) H Blood Urea Nitrogen 15 mg/dL (7-20) Creatinine 0.5 mg/dL (0.6-1.0) L Estimated GFR (Cockcroft-Gault) 121.3 BUN/Creatinine Ratio 30 (6-20) H Glucose Level 88 mg/dL (70-99) Calcium Level 8.3 mg/dL (8.5-10.1) L Total Bilirubin 0.7 mg/dL (0.2-1.0) Aspartate Amino Transferase (AST) 105 U/L (15-37) H Alanine Aminotransferase (ALT) 117 U/L (14-59) H Alkaline Phosphatase 47 U/L (46-116) Total Protein 7.0 g/dL (6.4-8.2) Albumin 4.0 g/dL (3.4-5.0) Albumin/Globulin Ratio 1.3 (1.0-1.7) Ethyl Alcohol Level 297 mg/dL (0-10) H EKG EKG [] Radiology/Procedures Radiology/Procedures [address] [address] IMAGING REPORT Signed PATIENT: SUNIL HOWELL ACCOUNT: [id number] : 1945 LOCATION: ER AGE: 72 SEX: F EXAM STATUS: REG ER ORD. PHYSICIAN: GISELA GOODE MD REASON: fall PROCEDURE: ANKLE LEFT 3V History: Fall, pain, swelling, bruising. Comparison: None. Findings: AP, lateral, and oblique views of the left ankle. Large amount of soft tissue swelling is seen. Mildly displaced obliquely oriented fracture seen involving the lateral malleolus extending to the level the ankle. Medial malleolar tip demonstrates mildly displaced fracture. No significant widening of the ankle mortise is seen. Small plantar calcaneal and Achilles tendon insertional enthesophytes are present. Impression: Acute bimalleolar fracture. Associated soft tissue swelling. Electronically signed by: Ganesh Cherry MD (02/08/2018 2:55 PM) [facility] DICTATED AND SIGNED BY: GANESH CHERRY MD DATE: 02/08/18 8677 CC: RICHARD ZHANG MD; GISELA GOODE MD ~ [address] [address] IMAGING REPORT Signed PATIENT: SUNIL HOWELL ACCOUNT: [id number] : 1945 LOCATION: ER AGE: 72 SEX: F EXAM STATUS: REG ER ORD. PHYSICIAN: GISELA GOODE MD REASON: fall PROCEDURE: CT HEAD AND CERVICAL SPINE WO RS Compliance Statement: One or more of the following individualized dose reduction techniques were utilized for this examination: 1. Automated exposure control 2. Adjustment of the mA and/or kV according to patient size 3. Use of iterative reconstruction technique CT HEAD AND CERVICAL SPINE WITHOUT CONTRAST History: Fall today, FX ankle. Pt intoxicated. Comparison: CT head without contrast, December 24, 2017. Procedure: Axial images are obtained of the head from the skull base through the vertex without IV contrast. Noncontrast helical CT of the cervical spine was performed. Axial, sagittal, and coronal reconstructions were obtained. Findings: The ventricles and sulci are normal for the patient's age. No mass-effect, midline shift, hemorrhage or obvious acute infarction is identified. Basilar cisterns are patent. Bone windows demonstrate no significant calvarial abnormality. The visualized paranasal sinuses are clear. Mastoid air cells are well aerated. Motion artifact severely limits evaluation of the cervical spine. A subtle fracture could be obscured. Multilevel facet hypertrophy. No obvious acute displaced fracture is identified. Grade 1 anterolisthesis of C3 on C4 and C4 on C5. There is disc space narrowing of C5/C6. Atherosclerotic bilateral carotid bulbs. The visualized lung apices are clear. IMPRESSION: 1. No acute intracranial abnormality. 2. Cervical spine is limited due to motion artifact. Electronically signed by: Deejay Pitt MD (02/08/2018 3:04 PM) [id number] DICTATED AND SIGNED BY: DEEJAY PITT MD DATE: 02/08/18 1454 CC: RICHARD ZHANG MD; GISELA GOODE MD ~ Course & Med Decision Making Course & Med Decision Making Pertinent Labs and Imaging studies reviewed. (See chart for details) Evaluation of patient in ER showed 72-year-old female patient with history of alcoholism had a fall at home and had injury to left ankle several hours prior to arrival to ER. Patient had bimalleolar fracture and was intoxicated. Posterior or leg splint was applied in ER by OPERATING ROOM SURGICAL TECHNOLOGIST. Patient was intoxicated and did not have any family member around her and decided to admit her at Hospital. Dr. King recommended to transfer patient to [facility] and accepted admission at 1546. Dr Barkley construction assistant orthopedic physician was paged and stated he will see the patient after arrival to [facility]. Dragon Disclaimer Dragon Disclaimer This electronic medical record was generated, in whole or in part, using a voice recognition dictation system. Departure Departure: Impression: Primary Impression: Closed bimalleolar fracture of left ankle Additional Impressions: Alcohol abuse Fall at home Leukopenia Elevated liver function tests Disposition: 02 XFER SHT-TRM HOSP (to [facility] at 1547) Admitting Physician: Gopi King (accepted transfer to [facility] at 1546) Condition: IMPROVED Referrals: RICHARD ZHANG MD (PCP) Problem Qualifiers GISELA GOODE MD Feb 08, 2018 16:52
[2018-02-08 18:45] VITALS: BP 153/88
[2018-02-08 19:16] LABS: BARBITURATES NEG (NEG); BENZODIAZEPINES NEG (NEG); CANNABINOIDS NEG (NEG); COCAINE NEG (NEG); METHADONE NEG (NEG); OPIATES NEG (NEG); PHENCYCLIDINE NEG (NEG)
[2018-02-08 19:21] LABS: AMPHETAMINE/METHAMPHETAMINE NEG (NEG)
[2018-02-08 19:37] LABS: BILIRUBIN,URINE NEG (NEG); CLARITY,URINE CLOUDY; COLOR,URINE YELLOW; GLUCOSE,URINE NEG (NEG)
[2018-02-08 19:38] LABS: AMORPHOUS SEDIMENT,UR PRESENT /HPF; BACTERIA,URINE MOD /HPF (0-FEW); NITRITE,URINE NEG (NEG); SQUAMOUS EPITHELIAL CELL,UR OCC /LPF; UROBILINOGEN,URINE 0.2 mg/dL (0.2 mg/dL)
--- NOTE | 2018-02-09 23:05 | DS ---
DATE OF DISCHARGE: 02/08/2018 HOSPITAL COURSE: The patient is a 72-year-old female patient, who was seen in the Emergency Room after she fell sustaining a closed bimalleolar fracture. The ER physician did evaluate the patient and she was transferred to [facility] to consult the orthopedic surgeon. She transpired that she was also alcohol intoxicated and we started her on alcohol withdrawal protocol. She was seen by the orthopedic surgeon and apparently her x-ray showed that she has fairly displaced distal fibular fracture, but no lateral talar shift, likely small avulsion off of the medial malleolus. The orthopedic surgeon recommended that the patient be allowed to weightbear in a Cam boot using the walker to test out her ankle stability and that the patient can be discharged and to follow him as an outpatient. We did consult the [facility] and they came and fitted her with the Cam boot and decision was made to discharge her home to follow with Dr. Barkley as an outpatient. PHYSICAL EXAMINATION: GENERAL: On examining her, she looked well and was clearly in no apparent respiratory distress. No pallor, jaundice, cyanosis, or thyromegaly. No jugular venous distension. No lower limb edema. VITAL SIGNS: Her heart rate was 72, blood pressure was 135/79, temperature was 98.2, respiratory rate was 18 and oxygen saturation was 99% on room air. HEAD, EYES, EARS, NOSE AND THROAT: Showed normocephalic, atraumatic. NECK: Supple. HEART: Showed normal first and second heart sounds with no gallop, rub or murmur. CHEST: Clear to auscultation. No crepitation or rhonchi. ABDOMEN: Distended, soft, nontender. No guarding or rigidity. No organomegaly. All hernial orifices intact. Bowel sounds normal. NEUROLOGIC: She is awake, alert, responding appropriately. All cranial nerves intact. She moves extremities without difficulty. LABORATORY DATA: Her lab work continued to show some transaminitis consistent with probably alcohol-induced hepatitis. She was fitted with a Cam boot and was discharged home to follow with Dr. Barkley as an outpatient. FINAL DISCHARGE DIAGNOSES: Left bimalleolar fracture, treated conservatively with the Cam boot. Other medical problems include hypertension, hypothyroidism and chronic alcoholism. BRENDAN PEMBERTON MD DR: Mike JOB#: [id number] / [id number]
== END 2018-02-08 19:05 | disposition short-term general hospital (02) ==
LOC: ER 14:05
DX: S82.842A Displaced bimalleolar fracture of left lower leg, initial encounter for closed fracture (principal); F10.20 Alcohol dependence, uncomplicated; D72.819 Decreased white blood cell count, unspecified; R79.89 Other specified abnormal findings of blood chemistry; I10 Essential (primary) hypertension; E03.9 Hypothyroidism, unspecified; Z88.8 Allergy status to other drugs, medicaments and biological substances; Z91.041 Radiographic dye allergy status; Y90.8 Blood alcohol level of 240 mg/100 ml or more; W18.30XA Fall on same level, unspecified, initial encounter; Y93.89 Activity, other specified; Y92.098 Other place in other non-institutional residence as the place of occurrence of the external cause; Y99.8 Other external cause status
CPT/HCPCS: 29515; 36415; 70450; 72125; 73610; 80053; 80307; 81001; 85025; 87086; 90471; 90715; 99285; G0480; G0479

== ENCOUNTER 2018-03-14 08:28 | Emergency (ER) | payer MEDICARE ==
[~2018-03-14] VITALS: Ht 170.2 cm; Wt 68.5 kg
[2018-03-14 08:28] VITALS: BP 162/82
[~2018-03-14 08:28] MED LIST changes: +HYDR-2145 PO; -HYDR25TA9 PO
--- NOTE | 2018-03-14 08:52 | PHYS DOC ---
Past History Past Medical History: Alcoholism, Hypertension, Hypothyroid Past Surgical History: No Surgical History Smoking: Non-smoker Alcohol Use: Heavy Drug Use: None Adult General Chief Complaint Chief Complaint: HAND PROBLEM HPI HPI 73-year-old female presents via EMS with right thumb pain and concern for nonhealing hand abrasions. The patient states that her right thumb was hurting a lot overnight made it difficult for her to sleep. She knows exactly sure how she injured it. She has had some falls recently. She was treated for a fall recently but left her with abrasions of the right third digit and the left third and fourth digits. She states that the thumb was not evaluated at that time. Also possible that she hurt it after that time she is not sure. The patient is a known long-term alcoholic. She lives alone. She is wearing a right ankle boot which she states is a broken ankle. She was unable to strep but on securely this morning due to her finger pain. Denies fever or chills. Review of Systems Review of Systems Constitutional: Denies fever or chills [] Eyes: Denies change in visual acuity, redness, or eye pain [] HENT: Denies nasal congestion or sore throat [] Respiratory: Denies cough or shortness of breath [] Cardiovascular: No additional information not addressed in HPI [] GI: Denies abdominal pain, nausea, vomiting, bloody stools or diarrhea [] : Denies dysuria or hematuria [] Musculoskeletal: Right hand pain, abrasions to both hands[] Integument: Denies rash or skin lesions [] Neurologic: Denies headache, focal weakness or sensory changes [] Endocrine: Denies polyuria or polydipsia [] All other systems were reviewed and found to be within normal limits, except as documented in this note. Allergies Allergies Allergies Coded Allergies Type Severity Reaction Last Updated Verified Lcrrbtf-Ehx-Xcc Reductase Inhibitor Allergy Intermediate 05/18/14 Yes lithium Allergy Intermediate 05/18/14 Yes I S O L A T I O N *CONTACT* Allergy Unknown 05/17/14 No acetaminophen Adverse Reaction Severe 08/20/14 Yes chlordiazepoxide Adverse Reaction Intermediate 08/20/14 Yes Physical Exam Physical Exam Constitutional: Well developed, well nourished, no acute distress, non-toxic appearance. Talkative [] HENT: Normocephalic, atraumatic, bilateral external ears normal, oropharynx moist, no oral exudates, nose normal. [] Eyes: PERRLA, EOMI, conjunctiva normal, no discharge. [] Neck: Normal range of motion, no tenderness, supple, no stridor. [] Cardiovascular:Heart rate regular rhythm, no murmur [] Lungs & Thorax: Bilateral breath sounds clear to auscultation [] Abdomen: Bowel sounds normal, soft, no tenderness, no masses, no pulsatile masses. [] Skin: Healing abrasions of the right third digit and left third and fourth digits. No signs of infection, cold to the touch, pink margins, central scabs.[ ] Back: No tenderness, no CVA tenderness. [] Extremities: No tenderness, no cyanosis, no clubbing, ROM intact, no edema. [] Neurologic: Alert and oriented X 3, normal motor function, normal sensory function, no focal deficits noted. [] Psychologic: Affect anxious, judgement normal, mood normal. [] Current Patient Data Vital Signs Vital Signs Date Time Temp Pulse Resp B/P (MAP) Pulse Ox O2 Delivery O2 Flow Rate FiO2 03/14/18 08:28 97.9 79 20 99 Room Air EKG EKG [] Radiology/Procedures Radiology/Procedures [] Impressions: Examination: 3 views of the right hand HISTORY: History of right pain, thumb pain, fall COMPARISON: None available FINDINGS: There is moderate joint space loss identified in the first carpometacarpal joint and metacarpophalangeal joint likely degeneration. Degenerative changes in the metacarpophalangeal joints, interphalangeal joints. There is nondisplaced fracture of the base of the distal phalanx of the thumb. The fracture line may extend intra-articularly on the medial aspect. IMPRESSION: Nondisplaced fracture of the base of the distal phalanx of the thumb. Electronically signed by: Aubrey Krishnan MD (03/14/2018 9:28 AM) [facility] DICTATED AND SIGNED BY: AUBREY KRISHNAN MD DATE: 03/14/18 0925 CC: SHELLEY JASMINE DO; RICHARD ZHANG MD ~ Course & Med Decision Making Course & Med Decision Making Pertinent Labs and Imaging studies reviewed. (See chart for details) The patient's abrasions seem to be healing as expected. They're each 1 cm in diameter. The margins are slightly pink and there is no exudate or purulent discharge. I believe these will continue to heal, but will take a long time due to their size. The patient does have a nondisplaced fracture of the distal phalanx of the right thumb. We will place this in a splint. I've advised she follow-up with her orthopedic doctor about this issue as well as for follow-up of her ankle. She is stable for discharge at this time. [] Dragon Disclaimer Dragon Disclaimer This electronic medical record was generated, in whole or in part, using a voice recognition dictation system. Departure Departure: Referrals: RICHARD ZHANG MD (PCP) SHELLEY JASMINE DO Mar 14, 2018 08:52
[2018-03-14] MEDS ORDERED: NEOMY/BACITR/POLYMYXIN OINT PACKET. TP ONE ×2 (09:23→09:45)
--- NOTE | 2018-03-14 09:31 | RAD ---
Examination: 3 views of the right hand HISTORY: History of right pain, thumb pain, fall COMPARISON: None available FINDINGS: There is moderate joint space loss identified in the first carpometacarpal joint and metacarpophalangeal joint likely degeneration. Degenerative changes in the metacarpophalangeal joints, interphalangeal joints. There is nondisplaced fracture of the base of the distal phalanx of the thumb. The fracture line may extend intra-articularly on the medial aspect. IMPRESSION: Nondisplaced fracture of the base of the distal phalanx of the thumb. Electronically signed by: Aubrey Krishnan MD (03/14/2018 9:28 AM) [facility]
[2018-03-14] MEDS ORDERED: ONDANSETRON ODT 4 MG TAB.RAPDIS PO ONE (10:00)
== END 2018-03-14 09:59 | disposition home or self-care (01) ==
LOC: ER 08:28
DX: S62.524A Nondisplaced fracture of distal phalanx of right thumb, initial encounter for closed fracture (principal); S60.512A Abrasion of left hand, initial encounter; I10 Essential (primary) hypertension; E03.9 Hypothyroidism, unspecified; F10.20 Alcohol dependence, uncomplicated; Z88.8 Allergy status to other drugs, medicaments and biological substances; Z91.041 Radiographic dye allergy status; Z88.6 Allergy status to analgesic agent; Y90.9 Presence of alcohol in blood, level not specified; W18.30XA Fall on same level, unspecified, initial encounter; Y93.89 Activity, other specified; Y92.89 Other specified places as the place of occurrence of the external cause; Y99.8 Other external cause status
CPT/HCPCS: 73130; 99284; Q0162; 99283

== ENCOUNTER 2018-03-27 02:21 | Emergency (ER) | payer MEDICARE ==
[~2018-03-27] VITALS: Ht 162.6 cm; Wt 70.3 kg
--- NOTE | 2018-03-27 02:27 | ED.ADGEN ---
Past History Past Medical History: Alcoholism, Hypertension, Hypothyroid Past Surgical History: No Surgical History Smoking: Non-smoker Alcohol Use: Heavy Drug Use: None Adult General Chief Complaint Chief Complaint ". I john fell or slipped out the bed.. .. I was trying to get my Carolina back in bed... Carolina is fine... I don't want any labs.... I don't want you take any blood.. I will take at vitamin bag...they have given me before...".." Nothing hurts... ".." My in August.. his name was Basil Null... he was a good man ... we got in 1973 the .. .. He was a really good bar useful or busser... .. I had trouble getting up... after fell and I pushed my alarm.. and those stock cutter came... I did nt really want to come... I usually see Dr. Dodd.... You know my was the class president.... " I think... I am probably still depressed over his ... any way I just will take the vitamin bag of fluids...and then I will go home...August daughter lives in [facility]... her is a structural engineering project manager. .... I am not suicidal or anything... I just feel alone some times... I did not need to come to the hospital... and I am not stupid.. so don't try and sneak any blood or do any tests on me...".. " How long have you been practicing medicine... have you been in practice long enough to treat me... I want only old doctors to treat me... Like Dr. Dodd... but don't go and wake him up ... I am not going to be admitted...".. " If you don't get blood from me... you can't say I am drunk or incompetent..I am not stupid..".."They did not let me get my teeth before I came in... I don't like being seen with out my teeth... it makes speech more difficult...".. " I just need to get back home to take care of my carolina.. Carolina is 17 yrs. old... her name is Carolina.. "..." You know my used drink with me....".." He was good man most of the time.." HPI HPI Patient is a 73 year old female who presents with above hx and fall while trying to get into bed. Pt. states she did not want to come to hospital. Pt. denies excessive alcohol use, but does smell of intoxicants. Pt. does move all ext. on request. Pt. has areas of abrasions and contusions. Most appear older. No new injuries appreciated. Pt. insistent she does not want any labs, or tests., Pt. give hx of alcohol abuse, Hypothyroid, HTN and Depression. Pt. states he only believes in Natural treatments. Review of Systems Review of Systems Pt. has no complaints Constitutional: Denies fever or chills [] Eyes: Denies change in visual acuity, redness, or eye pain [] HENT: Denies nasal congestion or sore throat [] Respiratory: Denies cough or shortness of breath [] Cardiovascular: No additional information not addressed in HPI [] GI: Denies abdominal pain, nausea, vomiting, bloody stools or diarrhea [] : Denies dysuria or hematuria [] Musculoskeletal: Denies back pain or joint pain [] Integument: Denies rash or skin lesions []Some areas of small abrasions. Neurologic: Denies headache, focal weakness or sensory changes [] Endocrine: Denies polyuria or polydipsia [] All other systems were reviewed and found to be within normal limits, except as documented in this note. Family History Family History Non- contributory Current Medications Current Medications Current Medications Medications (Trade) Dose Ordered Sig/Nova Start Time Stop Time Status Last Admin Dose Admin Folic Acid (FOLIC ACID SYRINGE for ER) 5 mg STK-MED ONCE 03/27/18 02:55 03/27/18 02:56 DC Multivitamins/ Minerals (Infuvite Adult) 10 ml STK-MED ONCE 03/27/18 02:55 03/27/18 02:56 DC Multivitamins/ Minerals 10 ml/ Folic Acid 1 mg/ Thiamine HCl 100 mg/Lactated Ringer's 1,011.2 ml @ 1,011.2 mls/hr 1X ONCE 03/27/18 03:00 03/27/18 03:59 DC 03/27/18 03:05 1,011.2 MLS/HR Thiamine HCl (Thiamine Vial) 200 mg STK-MED ONCE 03/27/18 02:55 03/27/18 02:56 DC Allergies Allergies Allergies Coded Allergies Type Severity Reaction Last Updated Verified Ynpedab-Bag-Euo Reductase Inhibitor Allergy Intermediate 05/18/14 Yes lithium Allergy Intermediate 05/18/14 Yes I S O L A T I O N *CONTACT* Allergy Unknown 05/17/14 No acetaminophen Adverse Reaction Severe 08/20/14 Yes chlordiazepoxide Adverse Reaction Intermediate 08/20/14 Yes Physical Exam Physical Exam Constitutional: no acute distress, non-toxic appearance. []At times tearful when talking about her . HENT: Normocephalic, atraumatic, bilateral external ears normal, oropharynx moist, no oral exudates, nose normal. []Missing lower dentures. Eyes: PERRLA, EOMI, conjunctiva normal, no discharge. [] Neck: Normal range of motion, no tenderness, supple, no stridor. [] Cardiovascular:Heart rate regular rhythm, no murmur []PMI to Lt. Lungs & Thorax: Bilateral breath sounds equal at apex with few scattered wheezes and basilar crackles on auscultation [] Abdomen: Bowel sounds normal, soft, no tenderness, no masses, no pulsatile masses. Some urine incontinence noted. Skin: Warm, dry, no erythema, no rash. Multiple areas of small abrasions and enid point contusions- most appear old or various stages of healing. Back: No tenderness, no CVA tenderness. [] Extremities: No tenderness, no cyanosis, no clubbing, ROM intact, no edema. [] Arthritic changes. Neurologic: Alert and oriented X 3, moves all ext. on request, some decrease plantar sensory function, no gross focal deficits noted. Does have intentional tremor. Psychologic: Affect anxious, and upset over transport to ED, judgement appear s to lack insight to her behavior and alcohol abuse, mood at time depressed and tearful. Reports grief over lost of her . Current Patient Data Vital Signs Vital Signs Date Time Temp Pulse Resp B/P (MAP) Pulse Ox O2 Delivery O2 Flow Rate FiO2 03/27/18 04:27 87 16 116/71 (86) 96 Room Air 03/27/18 02:38 98.0 EKG tamping machine operator shows sinus rhythm range 80 to 90. No acute pathology appreciate. [] Radiology/Procedures Radiology/Procedures Pt. refused X-rays[] Course & Med Decision Making Course & Med Decision Making Pertinent Labs and Imaging studies reviewed. (See chart for details) Pt. continues to refuse labs draws. Will allow IV " Vitamin".. or banana bag. Begged pt. to consider further evaluation. Labs and x rays. Pt. refuses any work up. Pt. eventually was ambulatory and took a cab home. Begged pt. to consider WITHDRAWAL program or at least moderate her intake. Patient was ambulatory at time of discharge. [] Final Impression Final Impression 1. Hx. of Fall[] 2. Suspect Alcohol Abuse 3. Grieving- Prolong 4. Intention Tremor Dragon Disclaimer Dragon Disclaimer This electronic medical record was generated, in whole or in part, using a voice recognition dictation system. LENIN CALLES MD Mar 27, 2018 02:27
[2018-03-27] MEDS ORDERED: THIAMINE 200 MG/2 ML VIAL. IV ONE (02:55)
[2018-03-27] MEDS ORDERED: MVI, ADULT NO.4 WITH VIT K 10 ML VIAL IV ONE (02:55)
[2018-03-27] MEDS ORDERED: FOLIC ACID 5 MG/ML SYRINGE for ER IV ONE (02:55)
[2018-03-27] MEDS ORDERED: MVI, ADULT NO.4 WITH VIT K 10 ML, FOLIC ACID SYRINGE for ER 1 MG, THIAMINE INJ 100 MG i... IV ONE ×4 (03:00)
[2018-03-27 04:27] VITALS: BP 116/71
== END 2018-03-27 04:43 | disposition home or self-care (01) ==
LOC: ER 02:21
DX: T14.8XXA Other injury of unspecified body region, initial encounter (principal); G25.2 Other specified forms of tremor; F10.20 Alcohol dependence, uncomplicated; I10 Essential (primary) hypertension; E03.9 Hypothyroidism, unspecified; F32.9 Major depressive disorder, single episode, unspecified; F43.21 Adjustment disorder with depressed mood; Z88.8 Allergy status to other drugs, medicaments and biological substances; Z91.041 Radiographic dye allergy status; Z88.6 Allergy status to analgesic agent; Y90.9 Presence of alcohol in blood, level not specified; W06.XXXA Fall from bed, initial encounter; Y93.89 Activity, other specified; Y92.89 Other specified places as the place of occurrence of the external cause; Y99.8 Other external cause status
CPT/HCPCS: 96365; 99284; J7120

== ENCOUNTER 2018-04-01 01:57 | Emergency (ER) | payer MEDICARE ==
[~2018-04-01] VITALS: Ht 162.6 cm; Wt 68.5 kg
--- NOTE | 2018-04-01 02:12 | PHYS DOC ---
Adult General Chief Complaint Chief Complaint facial contusion HPI HPI 73 years old female with a history of alcoholism presented emergency department with the facial bruises after a fall she stated that she's been feeling dizzy after the fall, patient refused the blood work IV fluids urine analysis Review of Systems Review of Systems Patient refused to answer any question Current Medications Current Medications Current Medications Medications (Trade) Dose Ordered Sig/Nova Start Time Stop Time Status Last Admin Dose Admin Ondansetron HCl (Zofran) 4 mg 1X ONCE 04/01/18 02:30 04/01/18 02:31 DC Sodium Chloride 1,000 ml @ 1,000 mls/hr 1X ONCE 04/01/18 02:30 04/01/18 03:29 Allergies Allergies Allergies Coded Allergies Type Severity Reaction Last Updated Verified [place]aw-Qxv-Ujj Reductase Inhibitor Allergy Intermediate 05/18/14 Yes lithium Allergy Intermediate 05/18/14 Yes I S O L A T I O N *CONTACT* Allergy Unknown 05/17/14 No acetaminophen Adverse Reaction Severe 08/20/14 Yes chlordiazepoxide Adverse Reaction Intermediate 08/20/14 Yes Physical Exam Physical Exam HENT: Normocephalic, bilateral external ears normal, oropharynx moist, no oral exudates, nose normal. []Facial swelling and ecchymosis on the right side Eyes: PERRLA, EOMI, conjunctiva are injected Neck: Normal range of motion, no tenderness, supple, no stridor. [] Cardiovascular:Heart rate regular rhythm, no murmur [] Lungs & Thorax: Bilateral breath sounds clear to auscultation [] Abdomen: Bowel sounds normal, soft, no tenderness, no masses, no pulsatile masses. [] Skin: Warm, dry, no erythema, no rash. [] Back: No tenderness, no CVA tenderness. [] Extremities: No tenderness, no cyanosis, no clubbing, ROM intact, no edema. [] Neurologic: Alert and oriented X 3, normal motor function, normal sensory function, no focal deficits noted. [] Psychologic: Affect normal, judgement normal, mood normal. [] Current Patient Data Vital Signs Vital Signs Date Time Temp Pulse Resp B/P (MAP) Pulse Ox O2 Delivery O2 Flow Rate FiO2 04/01/18 01:57 97.9 65 16 96 Room Air Lab Results Patient refused blood work and urinalysis she also refused IV she refused banana bag and Zofran I explained the risk and benefits she verbalized understanding she stated I did not want people to know my blood values EKG EKG [] Radiology/Procedures Radiology/Procedures [] Course & Med Decision Making Course & Med Decision Making Pertinent Labs and Imaging studies reviewed. (See chart for details) [] Final Impression Final Impression [] Problems: (1) Facial contusion Qualifiers: Qualified Codes: S00.83XA - Contusion of other part of head, initial encounter (2) Facial fracture due to fall Qualifiers: Qualified Codes: S02.92XA - Unspecified fracture of facial bones, initial encounter for closed fracture; W19.XXXA - Unspecified fall, initial encounter Dragon Disclaimer Dragon Disclaimer This electronic medical record was generated, in whole or in part, using a voice recognition dictation system. YVONNE ZHANG MD Apr 01, 2018 02:12
[2018-04-01] MEDS ORDERED: IV NORMAL SALINE 1,000ML 1,000 ML IV ONE (02:30)
[2018-04-01] MEDS ORDERED: ONDANSETRON PF 4 MG/2 ML VIAL. IV ONE (02:30)
--- NOTE | 2018-04-01 02:53 | RAD ---
RS Compliance Statement: One or more of the following individualized dose reduction techniques were utilized for this examination: 1. Automated exposure control 2. Adjustment of the mA and/or kV according to patient size 3. Use of iterative reconstruction technique CT HEAD AND MAXILLOFACIAL WITHOUT CONTRAST History: Recent fall, right sided facial pain, swelling, headache Comparison: CT head without contrast, February 08, 2018. CT maxillofacial without contrast October 30, 2017. Procedure: Axial images are obtained of the head from the skull base through the vertex without IV contrast. Helical CT imaging of the facial bones is performed without IV contrast. Findings: The ventricles and sulci are mildly prominent, consistent with age-related cerebral atrophy. There is mild supratentorial white matter hypoattenuation. This is a nonspecific finding but is commonly due to chronic small vessel ischemic disease in a patient of this age. No mass-effect, midline shift, hemorrhage or obvious acute infarction is identified. Basilar cisterns are patent. Bone windows demonstrate no significant calvarial abnormality. There is severe right frontal scalp and right orbit preseptal hematoma. There is probably subacute to chronic fracture of the right orbital floor. There is no acute hemorrhage in the right maxillary sinus or right orbit post septal air to indicate the fracture is acute. There is mucosal thickening of the superior right maxillary sinus. The right maxillary sinus is smaller than the left. The fracture is depressed by about 5 mm and measures 8 mm AP and 10 mm transverse. For example sagittal image 41. Fracture not present in October. Mastoid air cells are well aerated. The globes and post septal orbits are intact. IMPRESSION: 1. No acute intracranial abnormality. 2. Severe right frontal scalp and right orbit preseptal hematoma. Globes are intact. 3. Probably subacute to chronic fracture of the right orbital floor. Please see above discussion. Electronically signed by: Deejay Pitt MD (04/01/2018 2:49 AM) [id number]
[2018-04-01] MEDS ORDERED: AMOX1TAB61 PO (03:01)
[2018-04-01 03:02] VITALS: BP 96/52
== END 2018-04-01 03:12 | disposition home or self-care (01) ==
LOC: ER 01:57
DX: S02.92XA Unspecified fracture of facial bones, initial encounter for closed fracture (principal); R42 Dizziness and giddiness; F10.21 Alcohol dependence, in remission; Z88.8 Allergy status to other drugs, medicaments and biological substances; Z91.041 Radiographic dye allergy status; Z88.6 Allergy status to analgesic agent; W18.30XA Fall on same level, unspecified, initial encounter; Y93.89 Activity, other specified; Y92.89 Other specified places as the place of occurrence of the external cause; Y99.8 Other external cause status
CPT/HCPCS: 70450; 70486; 99284-25

== ENCOUNTER 2018-04-06 19:59 | Emergency (ER) | payer MEDICARE ==
[~2018-04-06] VITALS: Ht 162.6 cm; Wt 68.5 kg
[~2018-04-06 19:59] MED LIST changes: +AMOX1TAB61 PO
[2018-04-06 20:08] VITALS: BP 118/75
[2018-04-06] MEDS ORDERED: THIAMINE 200 MG/2 ML VIAL. IV ONE (20:59)
[2018-04-06] MEDS ORDERED: FOLIC ACID 5 MG/ML SYRINGE for ER IV ONE (21:00)
--- NOTE | 2018-04-06 21:00 | PHYS DOC ---
Past History Past Medical History: Alcoholism, High Cholesterol, Hypertension, Hypothyroid Past Surgical History: , Tonsillectomy, Tubal ligation, Other Smoking: Non-smoker Alcohol Use: Heavy Drug Use: None Adult General Chief Complaint Chief Complaint: ALCOHOL INTOXICATION HPI HPI 73-year-old female presents via EMS with alcohol intoxication and feeling "like I'm going to ". The patient tells me that she called EMS because she felt like she might today. When asked why she feels this way she states that "sometimes he just know it could happen." She has been drinking alcohol today. She does not have any specific complaints of pain. She does note that she felt her heart was beating fast but that has resolved. Shortness of breath or diaphoresis. She has not had a fever. She has no other specific complaints. The patient does have bruising to the right side of her face and bilateral black eyes. I asked her about this she tells me that she fell for 5 days ago at home but did not get checked out. She states that it does not hurt, it just looks bad with the bruising. Review of Systems Review of Systems Constitutional: Denies fever or chills [] Eyes: Denies change in visual acuity, redness, or eye pain [] HENT: Denies nasal congestion or sore throat [] Respiratory: Denies cough or shortness of breath [] Cardiovascular: No additional information not addressed in HPI [] GI: Denies abdominal pain, nausea, vomiting, bloody stools or diarrhea [] : Denies dysuria or hematuria [] Musculoskeletal: Denies back pain or joint pain [] Integument: Facial bruising[] Neurologic: Denies headache, focal weakness or sensory changes [] Endocrine: Denies polyuria or polydipsia [] All other systems were reviewed and found to be within normal limits, except as documented in this note. Current Medications Current Medications Current Medications Medications (Trade) Dose Ordered Sig/Nova Start Time Stop Time Status Last Admin Dose Admin Multivitamins/ Minerals 10 ml/ Folic Acid 1 mg/ Thiamine HCl 100 mg/Sodium Chloride 1,011.1 ml @ 1,000 mls/ hr 1X ONCE 04/06/18 21:00 04/06/18 22:00 Ondansetron HCl (Zofran) 4 mg 1X ONCE 04/06/18 21:00 04/06/18 21:01 Allergies Allergies Allergies Coded Allergies Type Severity Reaction Last Updated Verified Thzkyma-Wbu-Kpq Reductase Inhibitor Allergy Intermediate 05/18/14 Yes lithium Allergy Intermediate 05/18/14 Yes I S O L A T I O N *CONTACT* Allergy Unknown 05/17/14 No acetaminophen Adverse Reaction Severe 08/20/14 Yes chlordiazepoxide Adverse Reaction Intermediate 08/20/14 Yes Physical Exam Physical Exam Constitutional: Well developed, well nourished, no acute distress, non-toxic appearance. [] HENT: Normocephalic, atraumatic, bilateral external ears normal, oropharynx moist, no oral exudates, nose normal. [] Eyes: PERRLA, EOMI, conjunctiva normal, no discharge. [] Neck: Normal range of motion, no tenderness, supple, no stridor. [] Cardiovascular:Heart rate regular rhythm, no murmur [] Lungs & Thorax: Bilateral breath sounds clear to auscultation [] Abdomen: Bowel sounds normal, soft, no tenderness, no masses, no pulsatile masses. [] Skin: Bilateral black eyes, right facial ecchymosis[] Back: No tenderness, no CVA tenderness. [] Extremities: No tenderness, no cyanosis, no clubbing, ROM intact, no edema. [] Neurologic: Alert and oriented, normal motor function, normal sensory function, no focal deficits noted. [] Psychologic: Affect normal, judgement impaired, mood normal. [] Current Patient Data Vital Signs Vital Signs Date Time Temp Pulse Resp B/P (MAP) Pulse Ox O2 Delivery O2 Flow Rate FiO2 04/06/18 20:08 98.3 2 18 96 Room Air EKG EKG [] Radiology/Procedures Radiology/Procedures [] Course & Med Decision Making Course & Med Decision Making Pertinent Labs and Imaging studies reviewed. (See chart for details) Review of the patient's chart shows that she was seen in this facility 5 days ago head and face CT were performed at that visit. The patient was given a banana bag and basic labs were performed. The labs were unremarkable. She had some mild liver enzyme elevation. After hydration, the patient stated that she was feeling better and would like to go home. She refused to give us a urine sample. She was able to ambulate on her own to and from the bathroom. She seems to be able to make her own decisions. She is stable for discharge at this time. [] Dragon Disclaimer Dragon Disclaimer This electronic medical record was generated, in whole or in part, using a voice recognition dictation system. Departure Departure: Referrals: RICHARD ZHANG MD (PCP) SHELLEY JASMINE DO Apr 06, 2018 21:00
[2018-04-06] MEDS: ONDANSETRON PF 4 MG/2 ML VIAL. IV ONE (21:05)
[2018-04-06 21:06] LABS: BASO % 1 % (0-3); EOS # 0.2 x10^3/uL (0.0-0.7); EOS % 3 % (0-3); HEMATOCRIT 36.8 % (36.0-47.0); HEMOGLOBIN 12.2 g/dL (12.0-15.5); LYMPH # 1.3 x10^3/uL (1.0-4.8); LYMPH % 24 % (24-48); MEAN CORPUSCULAR HEMOGLOBIN 34 pg (25-35); MEAN CORPUSCULAR HGB CONC 33 g/dL (31-37); MEAN CORPUSCULAR VOLUME 101 fL (79-100); MONO # 0.6 x10^3/uL (0.0-1.1); MONO % 11 % (0-9); NEUT # 3.3 x10^3uL (1.8-7.7); NEUT % 61 % (31-73); PLATELET COUNT 159 x10^3/uL (140-400); RED BLOOD COUNT 3.65 x10^6/uL (3.50-5.40); RED CELL DISTRIBUTION WIDTH 13.7 % (11.5-14.5); WHITE BLOOD COUNT 5.5 x10^3/uL (4.0-11.0)
[2018-04-06] MEDS: MVI, ADULT NO.4 WITH VIT K 10 ML, FOLIC ACID SYRINGE for ER 1 MG, THIAMINE INJ 100 MG i... IV ONE ×4 (21:06)
[2018-04-06 21:17] LABS: ALBUMIN 3.9 g/dL (3.4-5.0); ALBUMIN/GLOBULIN RATIO 1.1 (1.0-1.7); CREATININE 0.8 mg/dL (0.6-1.0); GFR 70.3; POTASSIUM 3.6 mmol/L (3.5-5.1); TOTAL BILIRUBIN 0.3 mg/dL (0.2-1.0); TOTAL PROTEIN 7.4 g/dL (6.4-8.2)
== END 2018-04-06 21:41 | disposition home or self-care (01) ==
LOC: ER 19:59
DX: S00.12XA Contusion of left eyelid and periocular area, initial encounter (principal); S00.11XA Contusion of right eyelid and periocular area, initial encounter; F10.229 Alcohol dependence with intoxication, unspecified; E78.00 Pure hypercholesterolemia, unspecified; I10 Essential (primary) hypertension; E03.9 Hypothyroidism, unspecified; Z88.8 Allergy status to other drugs, medicaments and biological substances; Z88.6 Allergy status to analgesic agent; Z91.041 Radiographic dye allergy status; Y90.9 Presence of alcohol in blood, level not specified; W18.30XA Fall on same level, unspecified, initial encounter; Y93.89 Activity, other specified; Y92.89 Other specified places as the place of occurrence of the external cause; Y99.8 Other external cause status
CPT/HCPCS: 36415; 80053; 85025; 96365; 96375; 99284; J2405; 99283-25; J7030

== ENCOUNTER 2018-06-09 17:51 | Inpatient (IN) | payer MEDICARE ==
[~2018-06-09] VITALS: Ht 162.6 cm; Wt 78.0 kg
[~2018-06-09 17:51] MED LIST changes: -CYAN100T PO; +CYAN100T2 PO
[2018-06-09] MEDS ORDERED: MVI, ADULT NO.4 WITH VIT K 10 ML, FOLIC ACID SYRINGE for ER 1 MG, THIAMINE INJ 100 MG i... IV ONE ×4 (18:15)
[2018-06-09] MEDS ORDERED: MVI, ADULT NO.4 WITH VIT K 10 ML VIAL IV ONE (18:15)
[2018-06-09] MEDS ORDERED: THIAMINE IM 200 MG/2 ML VIAL. IM ONE (18:15)
[2018-06-09] MEDS ORDERED: FOLIC ACID 5 MG/ML SYRINGE for ER IV ONE (18:16)
--- NOTE | 2018-06-09 18:24 | PHYS DOC ---
Past History Past Medical History: Alcoholism, High Cholesterol, Hypertension Past Surgical History: Hysterectomy, Tonsillectomy Smoking: Non-smoker Alcohol Use: Heavy Drug Use: None Adult General Chief Complaint Chief Complaint: WITHDRAWL HPI HPI 73-year-old female who is well-known to the emergency room presents with alcohol intoxication. Patient is a long-standing alcoholic. Since today because she is to take her to [facility] for detox and rehabilitation. She states that she would like detox. Last drink of alcohol was 2 hours ago. She denies any pain, shortness breath, chest pain, dysuria, diarrhea. Review of Systems Review of Systems Constitutional: Denies fever or chills [] Eyes: Denies change in visual acuity, redness, or eye pain [] HENT: Denies nasal congestion or sore throat [] Respiratory: Denies cough or shortness of breath [] Cardiovascular: No additional information not addressed in HPI [] GI: Denies abdominal pain, nausea, vomiting, bloody stools or diarrhea [] : Denies dysuria or hematuria [] Musculoskeletal: Denies back pain or joint pain [] Integument: Denies rash or skin lesions [] Neurologic: Denies headache, focal weakness or sensory changes [] Endocrine: Denies polyuria or polydipsia [] All other systems were reviewed and found to be within normal limits, except as documented in this note. Current Medications Current Medications Current Medications Medications (Trade) Dose Ordered Sig/Nova Start Time Stop Time Status Last Admin Dose Admin Folic Acid (FOLIC ACID SYRINGE for ER) 5 mg STK-MED ONCE 06/09/18 18:16 06/09/18 18:17 DC Multivitamins/ Minerals (Infuvite Adult) 10 ml STK-MED ONCE 06/09/18 18:15 06/09/18 18:16 DC Multivitamins/ Minerals 10 ml/ Folic Acid 1 mg/ Thiamine HCl 100 mg/Sodium Chloride 1,011.1 ml @ 1,000 mls/ hr 1X ONCE 06/09/18 18:15 06/09/18 19:15 Thiamine HCl (Thiamine Im) 200 mg STK-MED ONCE 06/09/18 18:15 06/09/18 18:16 DC Allergies Allergies Allergies Coded Allergies Type Severity Reaction Last Updated Verified Zkjmyju-Rdh-Hkr Reductase Inhibitor Allergy Intermediate 05/18/14 Yes lithium Allergy Intermediate 05/18/14 Yes I S O L A T I O N *CONTACT* Allergy Unknown 05/17/14 No acetaminophen Adverse Reaction Severe 08/20/14 Yes chlordiazepoxide Adverse Reaction Intermediate 08/20/14 Yes Physical Exam Physical Exam Constitutional: Well developed, well nourished, no acute distress, non-toxic appearance. [] HENT: Normocephalic, atraumatic, bilateral external ears normal, oropharynx moist, no oral exudates, nose normal. [] Eyes: PERRLA, EOMI, conjunctiva normal, no discharge. [] Neck: Normal range of motion, no tenderness, supple, no stridor. [] Cardiovascular:Heart rate regular rhythm, no murmur [] Lungs & Thorax: Bilateral breath sounds clear to auscultation [] Abdomen: Bowel sounds normal, soft, no tenderness, no masses, no pulsatile masses. [] Skin: Warm, dry, no erythema, no rash. [] Back: No tenderness, no CVA tenderness. [] Extremities: No tenderness, no cyanosis, no clubbing, ROM intact, no edema. [] Neurologic: Alert and oriented X 3, normal motor function, normal sensory function, no focal deficits noted. Mildly intoxicated.[] Psychologic: Affect normal, judgement normal, mood normal. [] Current Patient Data Vital Signs Vital Signs Date Time Temp Pulse Resp B/P (MAP) Pulse Ox O2 Delivery O2 Flow Rate FiO2 06/09/18 18:01 97.8 85 20 95 Room Air EKG EKG [] Radiology/Procedures Radiology/Procedures [] Course & Med Decision Making Course & Med Decision Making Pertinent Labs and Imaging studies reviewed. (See chart for details) The patient's labs are remarkable only for alcohol. Her urinalysis is some evidence of UTI, but she is not having any symptoms. I will not treat this. Discussed the patient with Dr. Robledo and he has accepted the patient for admission. [] Dragon Disclaimer Dragon Disclaimer This electronic medical record was generated, in whole or in part, using a voice recognition dictation system. Departure Departure: Impression: Primary Impression: Alcohol dependence with intoxication Disposition: ADMITTED INPATIENT Condition: STABLE Referrals: RICHARD ZHANG MD (PCP) Problem Qualifiers Primary Impression: Alcohol dependence with intoxication Complication of substance-induced condition: uncomplicated Qualified Codes: F10.220 - Alcohol dependence with intoxication, uncomplicated SHELLEY JASMINE DO Jun 09, 2018 18:24
[2018-06-09 18:52] LABS: BASO # 0.1 x10^3/uL (0.0-0.2); BASO % 1 % (0-3); EOS # 0.1 x10^3/uL (0.0-0.7); EOS % 2 % (0-3); HEMATOCRIT 36.3 % (36.0-47.0); HEMOGLOBIN 11.9 g/dL (12.0-15.5); LYMPH # 1.2 x10^3/uL (1.0-4.8); LYMPH % 29 % (24-48); MEAN CORPUSCULAR HEMOGLOBIN 33 pg (25-35); MEAN CORPUSCULAR HGB CONC 33 g/dL (31-37); MEAN CORPUSCULAR VOLUME 99 fL (79-100); MONO # 0.4 x10^3/uL (0.0-1.1); MONO % 11 % (0-9); NEUT # 2.2 x10^3uL (1.8-7.7); NEUT % 56 % (31-73); PLATELET COUNT 248 x10^3/uL (140-400); RED BLOOD COUNT 3.65 x10^6/uL (3.50-5.40); RED CELL DISTRIBUTION WIDTH 13.9 % (11.5-14.5)
[2018-06-09 19:02] LABS: ALBUMIN 3.6 g/dL (3.4-5.0); ALBUMIN/GLOBULIN RATIO 0.9 (1.0-1.7); CALCIUM 8.7 mg/dL (8.5-10.1); CREATININE 0.9 mg/dL (0.6-1.0); GFR 61.4; POTASSIUM 3.8 mmol/L (3.5-5.1); TOTAL BILIRUBIN 0.2 mg/dL (0.2-1.0); TOTAL PROTEIN 7.4 g/dL (6.4-8.2)
[2018-06-09 19:07] LABS: BARBITURATES NEG (NEG); BENZODIAZEPINES NEG (NEG); CANNABINOIDS NEG (NEG); COCAINE NEG (NEG); METHADONE NEG (NEG); OPIATES NEG (NEG); PHENCYCLIDINE NEG (NEG)
[2018-06-09 19:08] LABS: AMPHETAMINE/METHAMPHETAMINE NEG (NEG)
[2018-06-09 19:36] LABS: BACTERIA,URINE FEW /HPF (0-FEW); BILIRUBIN,URINE NEG (NEG); CLARITY,URINE CLEAR; COLOR,URINE YELLOW; GLUCOSE,URINE NEG (NEG); NITRITE,URINE NEG (NEG); RBC,URINE OCC /HPF (0-2); SQUAMOUS EPITHELIAL CELL,UR FEW /LPF; UROBILINOGEN,URINE 0.2 mg/dL (0.2 mg/dL)
[2018-06-09 19:37] LABS: HYALINE CASTS, URINE FEW /HPF
[2018-06-09] MEDS ORDERED: LORazepam 1 MG TABLET PO ONE (23:00)
[2018-06-09] MEDS ORDERED: chlordiazePOXIDE HCL 25 MG CAPSULE PO ONE (23:00)
--- NOTE | 2018-06-09 23:45 | NUR ---
Pt admitted via EMS from ER for Alcohol Intoxication. Pt presents A&OX3, very talkative, expressing sadness for the loss of her last August. Pt states that she is depressed and lonely and that is why she drinks alcohol so often. Oriented pt to unit, nurse, call light and plan of care. V/U stated. Bed Alarm on. A full assessment completed and history reviewed per old records.
[2018-06-10] MEDS ORDERED: ONDANSETRON PF 4 MG/2 ML VIAL. IV PRN (00:45)
[2018-06-10 06:47] VITALS: BP 165/92
--- NOTE | 2018-06-10 08:10 | NUR ---
pt feeling ok today. PT is able to verbalize understanding of poc at this time. PT requesting phone numbers to call [facility] and some other places. She does express wanting to go to [facility] to detox. Bolivar FRANCES
[2018-06-10] MEDS ORDERED: hydroCHLOROthiazide 12.5 MG CAPSULE PO SCH (09:00)
[2018-06-10] MEDS ORDERED: MULTIVITAMIN with MINERAL TABLET. PO SCH (09:00)
[2018-06-10] MEDS ORDERED: CALCIUM CARB/VIT D3 500/200 TABLET PO SCH (09:00)
[2018-06-10] MEDS ORDERED: LEVOTHYROXINE 50 MCG TABLET PO SCH (11:00)
[2018-06-10] MEDS ORDERED: LORazepam 1 MG TABLET PO PRN (11:30)
[2018-06-10 11:32] VITALS: BP 161/84
[2018-06-10 14:33] VITALS: BP 146/88
--- NOTE | 2018-06-10 14:37 | NUR ---
PT dc to home. PT is able to verbalize understanding of discharge to home. PT is taking a taxi home then plans on going to [facility]. Bolivar FRANCES
--- NOTE | 2018-06-16 15:13 | HP ---
ADMIT DATE: 06/09/2018 HISTORY OF PRESENT ILLNESS: A 73-year-old white female who has a long history of alcoholism, came in through the Emergency Room, wanting to go through alcoholic detoxification. She was supposed to be entered into a detox program, but could not hang in any longer. Last drink of alcohol was 2 hours prior to admission. She was quite lethargic and liberated from her alcoholism and wanted to be admitted for further evaluation and treatment of her detox situation. The patient had alcohol level positive in her urine. Blood sugar slightly elevated. The patient was somewhat incoherent because of her situation with her alcohol problem. PAST MEDICAL HISTORY: The patient has had multiple admissions for alcohol withdrawal. She has had history of cataracts, glaucoma, tonsillectomy, hypercholesterolemia, hypertension, colonoscopy, colonic polyps, GERD, tubal ligation, hysterectomy, salpingotomy, BSO, kidney disease, incontinence, endocrine disorders, hypothyroidism, liver disease, psychiatric problems, bipolar disorder, depression, alcohol abuse, vodka 3-4 times a week. IMMUNIZATIONS: Influenza, pneumococcal up-to-date. FAMILY HISTORY: Positive for diabetes, cardiovascular disease in the father. Cancer confirmed in all her sisters. The patient has had problems with statin drugs, Tylenol, chlordiazepoxide, and lithium. MEDICATIONS: On the reconciliation list were duly noted including nifedipine ER 60 mg, calcium, vitamin D, hydrochlorothiazide, levothyroxine, and multivitamins. SOCIAL HISTORY: The patient denies smoking; however, ____ binge drinking of vodka as indicated. The patient denies hard drug use. REVIEW OF SYSTEMS: The patient denies any headaches, visual changes, blurred vision, double vision, just mild hangover. Denies chest pain, shortness of breath, abdominal pain. Does have some nausea, but no vomiting. Denies any melena, hematochezia, or hematemesis and neurologically baseline for her, although she is somewhat alleviated from her alcohol use. PHYSICAL EXAMINATION: GENERAL: This is a frail -appearing white female looking older than her stated age. VITAL SIGNS: Blood pressure 150/90, respiratory rate 20, pulse 80, afebrile. HEENT: The patient's head was atraumatic, normocephalic. Eyes: PERRLA without jaundice. The mouth and throat were normal. NECK: Supple, no JVD or thyromegaly. LUNGS: Diminished throughout, poor movement of air. CARDIOVASCULAR: Regular sinus rhythm, S1, S2. ABDOMEN: Soft, nontender, no rebound or guarding. Positive bowel sounds, no hepatosplenomegaly was noted. EXTREMITIES: No clubbing, cyanosis, nor edema. NEUROLOGIC: The patient is alert and oriented x HOME paper appropriate. Cranial nerves 2-12 grossly intact. LABORATORY DATA: Look basically stable. Her CBC was basically unremarkable. The patient's chemistries were also basically stable. Blood sugar 123. Sodium was elevated at 149. She was dehydrated. Urine showed 5-10 whites. Liver enzymes are basically unremarkable. The patient otherwise made good progress during the rest of her hospitalization. IMPRESSION: Alcoholism, alcohol intoxication, acute on top of chronic mild anemia, hyperglycemia, dehydration, leukorrhea, depression, bereavement over the loss of her . The patient will be on a regular diet, decreased activity, multivitamins and of course stop drinking. PLAN: The patient will be admitted for further evaluation and detoxification monitoring for any signs of abnormality. She was given additional folic acid and multivitamin through a banana bag. She made good progress during the rest of her hospitalization and then transferred to [facility] for continued rehabilitation and detoxification. RICHARD ZHANG MD DR: RAMIRO/susan JOB#: [id number] / [id number]
== END 2018-06-10 15:20 | disposition home or self-care (01) | DRG 897 ==
LOC: ER 17:51 → 1 SOUTH 23:00 → ER 23:10
PROVIDERS: ADMIT Family Medicine; ATTEND Family Medicine
DX: F10.220 Alcohol dependence with intoxication, uncomplicated (principal); I10 Essential (primary) hypertension; Z90.710 Acquired absence of both cervix and uterus; E78.00 Pure hypercholesterolemia, unspecified; Z79.899 Other long term (current) drug therapy; Z88.6 Allergy status to analgesic agent; Z88.1 Allergy status to other antibiotic agents; Z88.8 Allergy status to other drugs, medicaments and biological substances; D64.9 Anemia, unspecified; E03.9 Hypothyroidism, unspecified; E86.0 Dehydration; F31.9 Bipolar disorder, unspecified; H40.9 Unspecified glaucoma; K21.9 Gastro-esophageal reflux disease without esophagitis; N89.8 Other specified noninflammatory disorders of vagina; Z82.49 Family history of ischemic heart disease and other diseases of the circulatory system; Z86.010 Personal history of colon polyps; Z83.3 Family history of diabetes mellitus; Z90.49 Acquired absence of other specified parts of digestive tract; R73.9 Hyperglycemia, unspecified
CPT/HCPCS: 36415; 80053; 80307; 81001; 85025; 87086; J2060; J7030

== ENCOUNTER 2018-09-27 18:09 | Inpatient (IN) | payer MEDICARE ==
[~2018-09-27] VITALS: Ht 162.6 cm; Wt 74.4 kg
[2018-09-27 18:40] LABS: BARBITURATES NEG (NEG); BENZODIAZEPINES NEG (NEG); CANNABINOIDS NEG (NEG); COCAINE NEG (NEG); METHADONE NEG (NEG); OPIATES NEG (NEG); PHENCYCLIDINE NEG (NEG)
[2018-09-27 18:42] LABS: AMPHETAMINE/METHAMPHETAMINE NEG (NEG)
[2018-09-27 18:44] LABS: BASO % 1 % (0-3); EOS # 0.1 x10^3/uL (0.0-0.7); EOS % 4 % (0-3); HEMATOCRIT 38.1 % (36.0-47.0); HEMOGLOBIN 12.6 g/dL (12.0-15.5); LYMPH # 1.4 x10^3/uL (1.0-4.8); LYMPH % 41 % (24-48); MEAN CORPUSCULAR HEMOGLOBIN 31 pg (25-35); MEAN CORPUSCULAR HGB CONC 33 g/dL (31-37); MEAN CORPUSCULAR VOLUME 92 fL (79-100); MONO # 0.3 x10^3/uL (0.0-1.1); MONO % 9 % (0-9); NEUT # 1.6 x10^3uL (1.8-7.7); NEUT % 45 % (31-73); PLATELET COUNT 190 x10^3/uL (140-400); RED BLOOD COUNT 4.12 x10^6/uL (3.50-5.40); RED CELL DISTRIBUTION WIDTH 13.3 % (11.5-14.5); WHITE BLOOD COUNT 3.4 x10^3/uL (4.0-11.0)
[2018-09-27 18:49] LABS: BACTERIA,URINE MOD /HPF (0-FEW); BILIRUBIN,URINE NEG (NEG); CLARITY,URINE HAZY; COLOR,URINE YELLOW; GLUCOSE,URINE NEG (NEG); NITRITE,URINE POS (NEG); RBC,URINE 0 /HPF (0-2); SQUAMOUS EPITHELIAL CELL,UR OCC /LPF; UROBILINOGEN,URINE 0.2 mg/dL (0.2 mg/dL)
[2018-09-27 18:58] LABS: ALBUMIN 3.7 g/dL (3.4-5.0); ALBUMIN/GLOBULIN RATIO 1.2 (1.0-1.7); CALCIUM 8.7 mg/dL (8.5-10.1); CREATININE 0.7 mg/dL (0.6-1.0); TOTAL BILIRUBIN 0.2 mg/dL (0.2-1.0); TOTAL PROTEIN 6.8 g/dL (6.4-8.2)
[2018-09-27] MEDS ORDERED: cefTRIAXone IM 1 GM VIAL IM ONE (19:15)
--- NOTE | 2018-09-27 19:26 | PHYS DOC ---
Past History Past Medical History: Alcoholism, High Cholesterol, Hypertension, Hypothyroid Past Surgical History: Hysterectomy, Tonsillectomy, Other Smoking: Non-smoker Alcohol Use: Heavy Drug Use: None Adult General Chief Complaint Chief Complaint: SUICDAL IDEATION HPI HPI 73-year-old female presents with suicidal ideation. Patient states she's been having recent thoughts of suicide. Her plan will be to "take a bunch of medications." She admits that she has some problems with alcohol. She states that she has some legal trouble as result of this and is supposed to go to group home soon. She admits to drinking alcohol today. She is an alcoholic. She denies any other drug use. She had diarrhea for a few days, but this improved yesterday. She denies dysuria or nocturia. Nice fever or chills. Review of Systems Review of Systems Constitutional: Denies fever or chills. Suicidal. [] Eyes: Denies change in visual acuity, redness, or eye pain [] HENT: Denies nasal congestion or sore throat [] Respiratory: Denies cough or shortness of breath [] Cardiovascular: No additional information not addressed in HPI [] GI: Denies abdominal pain, nausea, vomiting, bloody stools or diarrhea [] : Denies dysuria or hematuria [] Musculoskeletal: Denies back pain or joint pain [] Integument: Denies rash or skin lesions [] Neurologic: Denies headache, focal weakness or sensory changes [] Endocrine: Denies polyuria or polydipsia [] All other systems were reviewed and found to be within normal limits, except as documented in this note. Current Medications Current Medications Current Medications Medications (Trade) Dose Ordered Sig/Nova Start Time Stop Time Status Last Admin Dose Admin Ceftriaxone Sodium (Rocephin Im) 1 gm 1X ONCE 09/27/18 19:15 09/27/18 19:16 UNV Allergies Allergies Allergies Coded Allergies Type Severity Reaction Last Updated Verified Hnrjnxh-Hsj-Gja Reductase Inhibitor Allergy Intermediate 05/18/14 Yes lithium Allergy Intermediate 05/18/14 Yes I S O L A T I O N *CONTACT* Allergy Unknown 05/17/14 No acetaminophen Adverse Reaction Severe 08/20/14 Yes chlordiazepoxide Adverse Reaction Intermediate 08/20/14 Yes Physical Exam Physical Exam Constitutional: Well developed, well nourished, no acute distress, non-toxic appearance. [] HENT: Normocephalic, atraumatic, bilateral external ears normal, oropharynx moist, no oral exudates, nose normal. [] Eyes: PERRLA, EOMI, conjunctiva normal, no discharge. [] Neck: Normal range of motion, no tenderness, supple, no stridor. [] Cardiovascular:Heart rate regular rhythm, no murmur [] Lungs & Thorax: Bilateral breath sounds clear to auscultation [] Abdomen: Bowel sounds normal, soft, no tenderness, no masses, no pulsatile masses. [] Skin: Warm, dry, no erythema, no rash. [] Back: No tenderness, no CVA tenderness. [] Extremities: No tenderness, no cyanosis, no clubbing, ROM intact, no edema. [] Neurologic: Alert and oriented X 3, normal motor function, normal sensory function, no focal deficits noted. [] Psychologic: Affect blunted, judgement impaired, mood depressed. [] Current Patient Data Vital Signs Vital Signs Date Time Temp Pulse Resp B/P (MAP) Pulse Ox O2 Delivery O2 Flow Rate FiO2 09/27/18 18:10 98.2 78 20 96 Room Air Lab Results Laboratory Tests Test 09/27/18 18:20 09/27/18 18:30 Urine Collection Type Unknown Urine Color Yellow Urine Clarity Hazy Urine pH 6.5 Urine Specific [place] 1.020 Urine Protein Neg (NEG-TRACE) Urine Glucose (UA) Neg mg/dL (NEG) Urine Ketones (Stick) Neg mg/dL (NEG) Urine Blood Trace (NEG) Urine Nitrite Pos (NEG) Urine Bilirubin Neg (NEG) Urine Urobilinogen Dipstick 0.2 mg/dL (0.2 mg/dL) Urine Leukocyte Esterase Trace (NEG) Urine RBC 0 /HPF (0-2) Urine WBC 5-10 /HPF (0-4) Urine Squamous Epithelial Cells Occ /LPF Urine Bacteria Mod /HPF (0-FEW) Urine Opiates Screen Neg (NEG) Urine Methadone Screen Neg (NEG) Urine Barbiturates Neg (NEG) Urine Phencyclidine Screen Neg (NEG) Urine Amphetamine/Methamphetamine Neg (NEG) Urine Benzodiazepines Screen Neg (NEG) Urine Cocaine Screen Neg (NEG) Urine Cannabinoids Screen Neg (NEG) Urine Ethyl Alcohol Pos (NEG) White Blood Count 3.4 x10^3/uL (4.0-11.0) L Red Blood Count 4.12 x10^6/uL (3.50-5.40) Hemoglobin 12.6 g/dL (12.0-15.5) Hematocrit 38.1 % (36.0-47.0) Mean Corpuscular Volume 92 fL (79-100) Mean Corpuscular Hemoglobin 31 pg (25-35) Mean Corpuscular Hemoglobin Concent 33 g/dL (31-37) Red Cell Distribution Width 13.3 % (11.5-14.5) Platelet Count 190 x10^3/uL (140-400) Neutrophils (%) (Auto) 45 % (31-73) Lymphocytes (%) (Auto) 41 % (24-48) Monocytes (%) (Auto) 9 % (0-9) Eosinophils (%) (Auto) 4 % (0-3) H Basophils (%) (Auto) 1 % (0-3) Neutrophils # (Auto) 1.6 x10^3uL (1.8-7.7) L Lymphocytes # (Auto) 1.4 x10^3/uL (1.0-4.8) Monocytes # (Auto) 0.3 x10^3/uL (0.0-1.1) Eosinophils # (Auto) 0.1 x10^3/uL (0.0-0.7) Basophils # (Auto) 0.0 x10^3/uL (0.0-0.2) Sodium Level 148 mmol/L (136-145) H Potassium Level 4.0 mmol/L (3.5-5.1) Chloride Level 109 mmol/L (98-107) H Carbon Dioxide Level 29 mmol/L (21-32) Anion Gap 10 (6-14) Blood Urea Nitrogen 16 mg/dL (7-20) Creatinine 0.7 mg/dL (0.6-1.0) Estimated GFR (Cockcroft-Gault) 82.0 BUN/Creatinine Ratio 23 (6-20) H Glucose Level 130 mg/dL (70-99) H Calcium Level 8.7 mg/dL (8.5-10.1) Total Bilirubin 0.2 mg/dL (0.2-1.0) Aspartate Amino Transferase (AST) 16 U/L (15-37) Alanine Aminotransferase (ALT) 24 U/L (14-59) Alkaline Phosphatase 46 U/L (46-116) Total Protein 6.8 g/dL (6.4-8.2) Albumin 3.7 g/dL (3.4-5.0) Albumin/Globulin Ratio 1.2 (1.0-1.7) Ethyl Alcohol Level 193 mg/dL (0-10) H EKG EKG [] Radiology/Procedures Radiology/Procedures [] Course & Med Decision Making Course & Med Decision Making Pertinent Labs and Imaging studies reviewed. (See chart for details) The patient does appear to have a plan. She is depressed about her situation. Her alcohol is 193. Her urine is suggestive of UTI. We cannot perform a psychiatric evaluation with an alcohol level like this. I will also treat her for UTI with 1 g of Rocephin IM. She will be admitted to the hospital. I discussed the patient with Dr. King and he has accepted her for admission. [] Dragon Disclaimer Dragon Disclaimer This electronic medical record was generated, in whole or in part, using a voice recognition dictation system. Departure Departure: Impression: Primary Impression: Alcohol dependence with intoxication Additional Impressions: Suicidal ideation UTI (urinary tract infection) Disposition: ADMITTED INPATIENT Admitting Physician: Gopi King Condition: STABLE Referrals: RICHARD ZHANG MD (PCP) Problem Qualifiers Primary Impression: Alcohol dependence with intoxication Complication of substance-induced condition: uncomplicated Qualified Codes: F10.220 - Alcohol dependence with intoxication, uncomplicated Additional Impressions: UTI (urinary tract infection) Urinary tract infection type: acute cystitis Hematuria presence: without hematuria Qualified Codes: N30.00 - Acute cystitis without hematuria SHELLEY JASMINE DO Sep 27, 2018 19:26
[2018-09-27] MEDS ORDERED: ONDANSETRON PF 4 MG/2 ML VIAL. IV PRN ×2 (19:30→22:15)
[2018-09-27] MEDS ORDERED: IV NORMAL SALINE 50ML 50 ML ONE (19:37)
[2018-09-27] MEDS ORDERED: IV NORMAL SALINE 1,000ML 1,000 ML IV ONE (19:45)
[2018-09-27] MEDS ORDERED: FAMOTIDINE 20 MG/2 ML VIAL IVP ONE (21:30)
[2018-09-27] MEDS ORDERED: THIAMINE 100 MG TABLET. PO ONE (21:30)
[2018-09-27] MEDS ORDERED: MVI, ADULT NO.4 WITH VIT K 10 ML, FOLIC ACID SYRINGE for ER 1 MG, THIAMINE INJ 100 MG i... IV ONE ×4 (21:30)
[2018-09-27] MEDS ORDERED: FOLIC ACID 1 MG TABLET PO ONE (21:30)
[2018-09-27 21:55] VITALS: BP 162/88
[2018-09-27] MEDS ORDERED: HALOPERIDOL LACT 5 MG/ML VIAL. IM PRN (22:15)
[2018-09-27] MEDS ORDERED: diphenhydrAMINE 50 MG/ML VIAL IVP PRN (22:15)
[2018-09-27] MEDS ORDERED: LORazepam 1 MG TABLET PO PRN (22:15)
[2018-09-28] MEDS: LEVOTHYROXINE 50 MCG TABLET PO SCH (05:49)
[2018-09-28 06:18] VITALS: BP 179/85
[2018-09-28] MEDS: MVI, ADULT NO.4 WITH VIT K 10 ML, FOLIC ACID SYRINGE for ER 1 MG, THIAMINE INJ 100 MG i... IV SCH ×4 (08:53)
[2018-09-28] MEDS ORDERED: MVI, ADULT NO.4 WITH VIT K 10 ML, THIAMINE INJ 100 MG, FOLIC ACID INJ 1 MG in IV NORMAL... IV SCH ×4 (09:00)
--- NOTE | 2018-09-28 09:36 | HP ---
ADMIT DATE: HISTORY OF PRESENT ILLNESS: A 73-year-old female with long history of problems with alcohol. She has been having some suicidal ideation. The patient is under a great deal of stress. She lost her . She has been a cough for a DUI. It may be facing a halfway time. The patient wanted to take a whole bunch of medications and end her life. She does drink daily. Denies any hard drug use, although has been battling alcoholism for numerous years. She, I believe, has gone to [place] [employer] and another meetings, but that does not seem to help her, but more importantly at the present time or in addition to her other problem, she has a severe depressive ideation and suicidal ideation. The patient was admitted for further evaluation, possible withdrawal from alcohol as well as monitoring her suicidal ideation. PAST MEDICAL AND SURGICAL HISTORY: Includes cataract, glaucoma, hypercholesterolemia, tonsillectomy, colonic polyps, GERD, tubal ligation, hysterectomy, salpingotomy, kidney stones, incontinence stress, endocrine disorders as well as neurological tremors, hypothyroidism, liver disease, psychiatric bipolar, depression, alcohol abuse. SOCIAL HISTORY: The patient used to smoke, she quit approximately 15 years ago. The patient is still tried to overcome the loss of her . IMMUNIZATIONS: Pneumococcal are up-to-date. She also has sleeping difficulties. FAMILY HISTORY: Sister with diabetes. Father with cardiovascular disease, cancer and 3 sisters. ALLERGIES: The patient has allergies to STATIN DRUGS, TYLENOL, LIBRIUM and LITHIUM. She is a full code. Stopped smoking 15 years ago. Drinks about a pint a day of hard liquor or one-fifth of, she says but probably drinks more than that. REVIEW OF SYSTEMS: Other than her depression, she denies headaches, visual change, blurred vision, double vision. Denies any melena, hematochezia, or hematemesis. Neurologically, the patient's baseline stable. No tremors were noted. PHYSICAL EXAMINATION: GENERAL: White female, fairly thin. The patient is alert and oriented. VITAL SIGNS: Blood pressure 162/80, respiratory rate 20, pulse 70, afebrile. LUNGS: Diminished throughout, but clear. HEENT: Head was atraumatic, normocephalic. Eyes: PERRLA without jaundice. Mouth and throat were normal. CARDIOVASCULAR: Regular sinus rhythm. ABDOMEN: Soft, nontender. EXTREMITIES: No clubbing, cyanosis, or edema. NEUROLOGIC: Alert and oriented Depressed, suicidal ideation off and on. Has fairly good insight into what she is having problems with. She is a very intelligent individual. We will continue to be monitored carefully and make further evaluation on her as indicated per those results. Her electrolytes showed an elevated sodium of 148, glucose of 130. Her blood count was basically all within normal limits. Tox showed 193 mg/dL of her alcohol, although other drug screens were negative. The patient in turn urine did show 5-10 whites and will be treated for possible bladder infection and sent for culture and sensitivity. IMPRESSION: Alcoholism, alcohol withdrawal, suicidal ideation, hypertension. PLAN: The patient will get her blood pressure pills this morning to see if we can bring down that blood pressure. Consult with Psychiatry to help her with her depression. May need to be evaluated by [facility] for further treatment of her multiple psychiatric issues. RICHARD ZHANG MD DR: RAMIRO/susan JOB#: [id number] / [id number]
[2018-09-28] MEDS: hydroCHLOROthiazide 12.5 MG CAPSULE PO SCH (09:55)
[2018-09-28] MEDS: MULTIVITAMIN with MINERAL TABLET. PO SCH (09:55)
[2018-09-28 10:14] VITALS: BP 161/87
[2018-09-28 16:12] VITALS: BP 129/72
--- NOTE | 2018-09-28 16:24 | EKG ---
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
[2018-09-28 19:11] VITALS: BP 136/82
[2018-09-28] MEDS ORDERED: traZODone 50 MG TABLET. PO PRN (19:15)
[2018-09-28] MEDS ORDERED: traZODone 50 MG TABLET. PO SCH (21:00)
--- NOTE | 2018-09-28 22:48 | PDOC ---
Exam Note: Parrish Note: Please also refer to the separate dictated note~for this date of service dictated separately.~Patient seen individually. Discussed the patient with Nursing staff reviewed the chart.~Reviewed interim history and current functioning. Reviewed vital signs,~Labs/ Radiology~and current medications noted below. Continue current treatment with the changes noted in the dictated addendum note Assessment: Vital Signs/I&O: Vital Signs Date Time Temp Pulse Resp B/P (MAP) Pulse Ox O2 Delivery O2 Flow Rate FiO2 09/28/18 20:05 Room Air 09/28/18 19:11 98.1 62 20 136/82 (100) 96 I & O 09/27/18 09/27/18 09/28/18 14:59 22:59 06:59 Intake Total 1050 ml 1411.2 ml Balance 1050 ml 1411.2 ml Current Medications: Meds: Current Medications Medications (Trade) Dose Ordered Sig/Nova Route PRN Reason Start Time Stop Time Status Last Admin Dose Admin Levothyroxine Sodium (Synthroid) 50 mcg DAILY06 PO 09/28/18 06:00 09/28/18 05:49 Nifedipine (Procardia Xl) 30 mg DAILY PO 09/28/18 09:00 09/28/18 10:02 DC 09/28/18 08:53 Multivitamins/ Minerals 10 ml/ Folic Acid 1 mg/ Thiamine HCl 100 mg/Sodium Chloride 1,011.2 ml @ 80 mls/hr DAILY IV 09/28/18 09:00 09/28/18 08:53 Hydrochlorothiazide (Microzide) 12.5 mg DAILY PO 09/28/18 10:00 09/28/18 09:55 Multivitamins/ Calcium (Thera-M Plus) 1 tab DAILY PO 09/28/18 10:00 09/28/18 09:55 Trazodone HCl (Desyrel) 50 mg QHS PO 09/28/18 21:00 09/28/18 21:15 I have reviewed the current psychotropics carefully including drug interactions. Risk benefit ratio favors no change other than as noted in my dictated progress note. Diagnosis: Problems: (1) Suicidal ideation (2) UTI (urinary tract infection) (3) Alcohol dependence with delirium (4) Alcohol withdrawal (5) Alcohol dependence with withdrawal delirium (6) Alcohol dependence syndrome MAGGIE WRIGHT MD Sep 28, 2018 22:48
[2018-09-29] MEDS: LEVOTHYROXINE 50 MCG TABLET PO SCH (06:03)
[2018-09-29 06:08] VITALS: BP 130/75
[2018-09-29] MEDS: hydroCHLOROthiazide 12.5 MG CAPSULE PO SCH (08:17)
[2018-09-29] MEDS: MULTIVITAMIN with MINERAL TABLET. PO SCH (08:17)
[2018-09-29] MEDS: MVI, ADULT NO.4 WITH VIT K 10 ML, FOLIC ACID SYRINGE for ER 1 MG, THIAMINE INJ 100 MG i... IV SCH ×4 (09:00)
[2018-09-29] MEDS ORDERED: LORA-254 PO (10:39)
[2018-09-29] MEDS ORDERED: HALO5VIA2 IM (10:39)
[2018-09-29 10:55] VITALS: BP 160/89
[2018-09-29] MEDS ORDERED: TRAZ-120 PO ×2 (11:12→16:34)
[2018-09-29] MEDS ORDERED: SMZ/TMP 800/160MG TABLET. PO SCH (12:30)
[2018-09-29] MEDS ORDERED: ONDA4TAB7 PO (16:34)
[2018-09-29] MEDS ORDERED: SULF1TAB24 PO (16:40)
--- NOTE | 2018-09-29 19:03 | DS ---
DATE OF DISCHARGE: HOSPITAL COURSE: The patient was brought in for severe depression and also problems with alcoholism. She has been seen by Dr. Castrejon, noted psychiatrist and has reviewed her chart and history and so forth has made timely suggestions. She will be transferred [facility] the [facility]. She has made excellent recovery. The patient is alert and oriented. Speech is fluent, spontaneous, appropriate. She seems to be have much better insight into what was going on with her life and making excellent progress. Culture on urine is still pending, which she did receive a couple doses of Rocephin, which I think has probably cleared that up. In any case, the patient will be transferred to the [facility] for followup. IMPRESSION: Acute alcoholism, severe depression, bipolar disease, suicidal ideation. The patient will be continued to be monitored on the [facility]. She will be on a regular diet, decreased activity ____ as indicated above there and make further evaluation on her per those results. RICHARD ZHANG MD DR: RAMIRO/susan JOB#: [id number] / [id number]
--- NOTE | 2018-09-30 15:09 | CONS ---
DATE OF CONSULTATION: 09/28/2018 PSYCHIATRIC CONSULTATION This late entry, date of service 09/28/2018, covers elements not covered in my initial note of 09/28/2018. IDENTIFYING DATA: The patient is a 73-year-old female seen in room 125, 1 [facility] for a psychiatric consult requested by Dr. Dodd on account of the patient's history of very significant alcohol abuse, worsening symptoms of depression with suicidal ideation. Reportedly, the patient had stated she had plans and means to carry out the plan, but she would not tell the staff about the plan. She had been on one-on-one status. Prior to my visit with the patient; however, she had told the nursing staff that she had talked to her daughter who made her realize what it would do to the rest of the family including the daughter if the patient were to commit suicide and that she had decided ending her life was not a good option. CHIEF COMPLAINT: "I was at [facility] in [place] for about 3 weeks in June. I started drinking vodka again last week. I have had 4 DUIs and have lost my license. I don't know if I will end up in retirement." HISTORY OF PRESENT ILLNESS: The patient has a long history of fairly significant alcohol abuse with DUIs, history of blackouts, shakes and other withdrawal symptoms. She has had extensive alcohol treatment in the past and has been treated at the [facility] as well, mostly with psychotherapy and not psychotropic medications. She has additionally lost her about a year back and has been progressively more despondent about this with worsening mood swings. She had considered taking an overdose of her medications to end her life. She denies any hard drug use. She does attend meetings as well. She does on very detailed questioning admit to mood swings, racing thoughts, pressure of speech, but no prior diagnosis of bipolar disorder. PAST PSYCHIATRIC HISTORY: As above. MEDICAL HISTORY: Positive for cataracts, glaucoma, hypercholesterolemia, tonsillectomy, colon polyps, GERD, tubal ligation, hysterectomy, kidney stones, stress incontinence, endocrine disorders, tremors, hypothyroidism and liver disease. FAMILY HISTORY: The patient states her mother used to have bizarre behaviors including getting extremely psychotic, erratic, aggressive, throwing things for no reason, and she remembers most of her growing up with these behaviors by the mother though the mother was never diagnosed with bipolar disorder, certainly seemed to be indicative of this. Family history otherwise positive for diabetes in sister, cardiovascular disease in father, cancer in 3 sisters. ALLERGIES: STATINS, TYLENOL, LIBRIUM and LITHIUM. She is a full code. She stopped smoking 15 years ago. Drinks about a pint of hard liquor of one-fifth of that. SOCIAL HISTORY: The patient lives in her home and walks to the [employer] for her day-to-day needs. Rest as above. 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 MENTAL STATUS EXAMINATION: The patient was seen individually at length the evening of 09/28/2018. She is well oriented. She is anxious, restless, hyperverbal, somewhat grandiose. She has some flight of ideas, significant distractibility. On close and persistent questioning, she denied active suicidal or homicidal ideation. Attention span short. Language function intact. Insight somewhat limited. Judgment intact to standard questioning. IMPRESSION: Alcohol abuse dependence, status post alcohol withdrawal, probable bipolar 1 disorder, mixed with psychotic features; history of major depressive disorder; anxiety disorder, unspecified. Rest as above. RECOMMENDATION: From a psychiatric standpoint, I have discussed at great length with her. She had initially refused to go inpatient psychiatry, but after I talked to her, she is agreeable to coming to the [facility] for baseline assessment and treatment for her bipolar disorder. She is very keen to be on Topamax to help with the alcohol cravings and believe she might lose weight on it as well. It might have some efficacy for her bipolar disorder, but limited. We will also consider Depakote. She has not been sleeping well and we will start trazodone 50 mg at bedtime p.r.n., may repeat x1 and reassess for transfer to [facility] morning of 09/29/2018. Dr. Dodd, thank you for the opportunity to participate in your patient's care. We will follow with you. At the time of this dictation, the patient in fact has been transferred to the [facility]. MAN Liyah WRIGHT MD DR: GREGORY/susan JOB#: [id number] / [id number]
== END 2018-09-29 14:29 | DRG 897 ==
LOC: ER 18:09 → 1 SOUTH 19:27
PROVIDERS: ADMIT Family Medicine; ATTEND Family Medicine
DX: F10.229 Alcohol dependence with intoxication, unspecified (principal); N39.0 Urinary tract infection, site not specified; R45.851 Suicidal ideations; F10.239 Alcohol dependence with withdrawal, unspecified; E03.9 Hypothyroidism, unspecified; E78.00 Pure hypercholesterolemia, unspecified; I10 Essential (primary) hypertension; K21.9 Gastro-esophageal reflux disease without esophagitis; F41.9 Anxiety disorder, unspecified; H40.9 Unspecified glaucoma; F31.9 Bipolar disorder, unspecified; Z90.710 Acquired absence of both cervix and uterus; Z88.6 Allergy status to analgesic agent; Z88.8 Allergy status to other drugs, medicaments and biological substances; Z86.010 Personal history of colon polyps; Z87.891 Personal history of nicotine dependence; Z83.3 Family history of diabetes mellitus; Z87.442 Personal history of urinary calculi; Z82.49 Family history of ischemic heart disease and other diseases of the circulatory system
CPT/HCPCS: 36415; 80053; 80307; 81001; 85025; 87086; 87186; 93005; 96365; G0480; J0696; J1200; J3490; 99285-25; J7030

== ENCOUNTER 2018-09-29 14:29 | Inpatient (IN) | payer MEDICARE ==
[~2018-09-29] VITALS: Ht 162.6 cm; Wt 71.9 kg
[~2018-09-29 14:29] MED LIST changes: +HALO5VIA2 IM; +LORA-254 PO; +TRAZ-120 PO
[2018-09-29 16:02] VITALS: BP 103/67
[2018-09-29] MEDS ORDERED: ONDA4TAB7 PO (16:34)
[2018-09-29] MEDS ORDERED: TRAZ-120 PO (16:34)
[2018-09-29] MEDS ORDERED: SULF1TAB24 PO (16:40)
[2018-09-29] MEDS ORDERED: LORazepam 1 MG TABLET PO PRN (16:45)
[2018-09-29] MEDS ORDERED: HALOPERIDOL LACT 5 MG/ML VIAL. IM PRN (17:15)
[2018-09-29] MEDS ORDERED: ONDANSETRON ODT 4 MG TAB.RAPDIS PO PRN (17:15)
[2018-09-29] MEDS ORDERED: MAGNESIUM HYDROXIDE 2,400 MG/30 ML ORAL.SUSP. PO PRN (17:45)
[2018-09-29] MEDS ORDERED: METHYL SALICYLATE/MENTHOL TOPICAL OINTMENT 29GM TUBE. TP PRN (17:45)
[2018-09-29] MEDS ORDERED: MAG HYDROX/AL HYDROX/SIMETH 30 ML ORAL.SUSP PO PRN (17:45)
--- NOTE | 2018-09-29 19:23 | HP ---
ADMIT DATE: 09/29/2018 PSYCHIATRIC ADMISSION HISTORY/EVALUATION. This note covers the elements not covered in my initial note on 09/29/2018. IDENTIFYING DATA: The patient is a 73-year-old female referred to us from [address] [place] [address] Tommy Dodd, her primary care physician on account of worsening mood swings and symptoms of depression with suicidal ideation. She was planning to overdose on her medications at home and was brought to the Emergency Room, admitted on for medical/surgical stabilization. I did see her for Psychiatric consultation on . She has a history of bipolar disorder, worsening symptoms of depression and extremely significant alcohol abuse. She has failed recent several-week treatment for her alcohol dependence at [facility] in [place] and has failed outpatient psychiatric interventions at the [facility]. She was transferred to the [facility] for stabilization of her bipolar disorder/alcohol dependence. CHIEF COMPLAINT: "Yes, I am willing to start something for my mood swings. I would like to first start the Topamax." HISTORY OF PRESENT ILLNESS: The patient has an extensive history of alcohol abuse and several treatments in the past including the recent one at [facility] noted above. Reportedly, she was planning to overdose on her medications and even though she had stayed off alcohol since leaving [facility] end of June, she restarted using it last week. She mainly drinks vodka. She denies any drug use. She was on one-on-one status on and after I met with her, she denied active suicidal ideation because she stated she talked to her daughter and realized what something like that would do to the rest of the family and she was not willing to put them through this. PAST PSYCHIATRIC HISTORY: As above. MEDICAL HISTORY AND SURGICAL HISTORY: Including cataracts, glaucoma, hyperlipidemia, status post tonsillectomy, colon polyps, GERD, tubal ligation, hysterectomy, kidney stones, stress incontinence, endocrine disorder, neurological disorder, hypothyroidism, tremors, history of liver disease, alcohol abuse. DRUG ALLERGIES: STATINS, TYLENOL, LIBRIUM, LITHIUM. CURRENT PSYCHOTROPICS: MRAD was reviewed. Trazodone 50 mg at bedtime p.r.n., august repeat x 1 for insomnia, which was effective last night. FAMILY HISTORY: Sister with diabetes, father with cardiovascular disease, and cancer in 3 sisters. SOCIAL HISTORY: The patient was about a year back. 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 She lives alone by herself, with daughter in the [facility]. She additionally admits to being depressed consequent to the loss of her . She was a smoker, quit about 15 years ago. She is a full code. MENTAL STATUS EXAMINATION: The patient was seen individually on the evening of 09/29/2018. She is well oriented, remembered me from my visit with her on 09/28/2018 [address] Speech coherent, rapid at times. Abstraction fair, computation reasonable. 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 Attention span short. She denies active suicidal or homicidal ideation, but continues to have significant mood lability. IMPRESSION: Probable bipolar 1 disorder, mixed versus depressed; history of alcohol abuse dependence; anxiety disorder, unspecified; history of major depressive disorder. Rest diagnoses as above. PLAN: Admit to Geropsychiatry unit at [facility]. I will see the patient daily individually from a psychiatric standpoint. Medical followup with Dr. King. Continue the patient on trazodone 50 mg at bedtime p.r.n., may repeat x 1 for insomnia; start Topamax 25 mg at bedtime as the patient is quite fixated on using this for alcohol cravings because she feels that might help her weight loss. Additionally, it might have some efficacy for her bipolar disorder, but we will also start her on Depakote 250 mg at bedtime. Her AST, ALT are unremarkable. We will check CBC, CMP, valproic acid level, ammonia level in 3 days. Make further adjustments as clinically indicated. Once she is discharged, outpatient followup will be at the [facility]. MAN Liyah WRIGHT MD DR: GREGORY/susan JOB#: [id number] / [id number]
[2018-09-29] MEDS: SMZ/TMP 800/160MG TABLET. PO SCH (19:58)
[2018-09-29] MEDS: DIVALPROEX 125 MG CAP.SPRINK PO SCH (19:58)
[2018-09-29] MEDS: traZODone 50 MG TABLET. PO SCH (19:59)
[2018-09-29] MEDS: TOPIRAMATE 25 MG TABLET. PO SCH (19:59)
--- NOTE | 2018-09-29 22:14 | PDOC ---
Exam Note: Parrish Note: Please also refer to the separate dictated note~for this date of service dictated separately. Discussed the patient with Nursing staff reviewed the chart.~Reviewed interim history and current functioning. Reviewed vital signs,~Labs/ Radiology~and current medications noted below. Continue current treatment with the changes noted in the dictated addendum note Assessment: Vital Signs/I&O: Vital Signs Date Time Temp Pulse Resp B/P (MAP) Pulse Ox O2 Delivery O2 Flow Rate FiO2 09/29/18 16:02 98.0 66 18 103/67 (79) 97 Current Medications: Meds: Current Medications Medications (Trade) Dose Ordered Sig/Nova Route PRN Reason Start Time Stop Time Status Last Admin Dose Admin Trazodone HCl (Desyrel) 50 mg QHS PO 09/29/18 21:00 09/29/18 19:59 Trimethoprim/ Sulfamethoxazole (Bactrim Ds) 1 tab BID PO 09/29/18 21:00 10/04/18 20:59 09/29/18 19:58 Topiramate (Topamax) 25 mg QHS PO 09/29/18 21:00 09/29/18 19:59 Divalproex Sodium (Depakote Sprinkles) 250 mg QHS PO 09/29/18 21:00 09/29/18 19:58 I have reviewed the current psychotropics carefully including drug interactions. Risk benefit ratio favors no change other than as noted in my dictated progress note. Diagnosis: Problems: (1) Alcohol dependence syndrome (2) Alcoholism /alcohol abuse (3) Major depressive disorder, recurrent episode (4) Bipolar affective disorder, mixed (5) Anxiety disorder MAGGIE WRIGHT MD Sep 29, 2018 22:14
[2018-09-30] MEDS: LEVOTHYROXINE 50 MCG TABLET PO SCH (05:57)
[2018-09-30 06:07] VITALS: BP 117/73
[2018-09-30] MEDS: SMZ/TMP 800/160MG TABLET. PO SCH ×2 (08:18→19:52)
[2018-09-30] MEDS: hydroCHLOROthiazide 12.5 MG CAPSULE PO SCH (08:18)
[2018-09-30] MEDS: MULTIVITAMIN with MINERAL TABLET. PO SCH (08:19)
[2018-09-30 13:29] LABS: THYROID STIM HORMONE (TSH) 5.901 uIU/mL (0.358-3.740)
[2018-09-30 16:36] VITALS: BP 124/70
[2018-09-30 19:06] LABS: THYROXINE 6.5 ug/dL (4.5-12.0)
[2018-09-30] MEDS: TOPIRAMATE 25 MG TABLET. PO SCH (19:49)
[2018-09-30] MEDS: traZODone 50 MG TABLET. PO SCH (19:49)
[2018-09-30] MEDS: DIVALPROEX 125 MG CAP.SPRINK PO SCH (19:52)
[2018-09-30] MEDS: traZODone 50 MG TABLET. PO PRN (21:48)
--- NOTE | 2018-09-30 22:40 | PDOC ---
Exam Note: Parrish Note: Please also refer to the separate dictated note~for this date of service dictated separately.~Patient seen individually. Discussed the patient with Nursing staff reviewed the chart.~Reviewed interim history and current functioning. Reviewed vital signs,~Labs/ Radiology~and current medications noted below. Continue current treatment with the changes noted in the dictated addendum note Assessment: Vital Signs/I&O: Vital Signs Date Time Temp Pulse Resp B/P (MAP) Pulse Ox O2 Delivery O2 Flow Rate FiO2 09/30/18 16:36 98.2 55 20 124/70 (88) 98 I & O 09/29/18 09/29/18 09/30/18 14:59 22:59 06:59 Intake Total 240 ml 240 ml Balance 240 ml 240 ml Labs: Laboratory Tests Test 09/30/18 06:15 Magnesium Level 1.7 mg/dL (1.8-2.4) L Iron Level 82 ug/dL (50-170) Total Iron Binding Capacity 292 ug/dL (250-450) Iron Saturation 28 % (15-34) Triglycerides Level 90 mg/dL (0-150) Cholesterol Level 256 mg/dL (0-200) H LDL Cholesterol, Calculated 150 mg/dL (0-100) H VLDL Cholesterol, Calculated 18 mg/dL (0-40) Non-HDL Cholesterol Calculated 168 mg/dL (0-129) H HDL Cholesterol 88 mg/dL (40-60) H Cholesterol/HDL Ratio 2.0 25-Hydroxy Vitamin D Total 26.2 ng/mL (30-100) L Thyroid Stimulating Hormone (TSH) 5.901 uIU/mL (0.358-3.740) Thyroxine (T4) 6.5 ug/dL (4.5-12.0) Total Triiodothyronine (TT3) 90 ng/dL (71-180) Treponema pallidum Antibody Nonreactive (Nonreactive) Current Medications: Meds: Current Medications Medications (Trade) Dose Ordered Sig/Nova Route PRN Reason Start Time Stop Time Status Last Admin Dose Admin Hydrochlorothiazide (Microzide) 12.5 mg DAILY PO 09/30/18 09:00 09/30/18 08:18 Levothyroxine Sodium (Synthroid) 50 mcg DAILY06 PO 09/30/18 06:00 09/30/18 05:57 Multivitamins/ Calcium (Thera-M Plus) 1 tab DAILY PO 09/30/18 09:00 09/30/18 08:19 Nifedipine (Procardia Xl) 60 mg DAILY PO 09/30/18 09:00 09/30/18 08:19 I have reviewed the current psychotropics carefully including drug interactions. Risk benefit ratio favors no change other than as noted in my dictated progress note. Diagnosis: Problems: (1) Alcohol dependence syndrome (2) Anxiety disorder (3) Major depressive disorder, recurrent episode (4) Bipolar affective disorder, mixed (5) Alcoholism /alcohol abuse MAGGIE WRIGHT MD Sep 30, 2018 22:40
--- NOTE | 2018-10-01 03:29 | CONS ---
DATE OF CONSULTATION: 09/30/2018 HISTORY OF PRESENT ILLNESS: The patient is a 73-year-old female patient who was [facility] by her primary care physician, Dr. Tommy Dodd on account of worsening mood swings and symptoms of depression with suicidal ideation. She apparently was planning to overdose on her medication at home and was brought to the Emergency Room, admitted to [address] [place] [address] for medical stabilization. She apparently has a history of bipolar disorder, worsening symptoms of depression, extremely significant alcohol abuse. She has failed recent several week treatment for alcohol dependence at [facility] in [place], has failed outpatient psychiatric intervention at the [facility] and she was transferred to [facility] for inpatient psychiatric stabilization. PAST MEDICAL HISTORY: Significant for bilateral cataracts, glaucoma, hyperlipidemia, gastroesophageal reflux disease, nephrolithiasis, hypothyroidism, history of liver disease, and alcohol abuse. PAST SURGICAL HISTORY: Significant for tonsillectomy, adenoidectomy, bilateral tubal ligation, total abdominal hysterectomy, and bilateral salpingo-oophorectomy. FAMILY HISTORY: She has a sister with diabetes. Father with cardiovascular disease and cancer in 3 sisters. SOCIAL HISTORY: The patient was about a year ago. 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 She lives alone by herself. Her daughter lives in [facility] in [facility]. She additionally admits to being depressed secondary to the loss of her . She was a smoker, quit about 15 years ago. She is a full code. ALLERGIES: She is ALLERGIC TO STATINS, TYLENOL, LIBRIUM, AND LITHIUM. MEDICATIONS: She is currently on following medications: She is on sulfamethoxazole, trimethoprim for Bactrim 1 tablet twice a day for 5 days for UTI, nifedipine for extended release for Procardia 60 mg daily, trazodone 50 mg at bedtime, trazodone 50 mg as needed, haloperidol lactate 5 mg in 1 mL vial intramuscular as needed every 4 hours, lorazepam 4 mg every hour as needed. She is on hydrochlorothiazide 12.5 mg daily, ondansetron 4 mg daily, levothyroxine 50 mcg daily, and multivitamin 1 tablet once a day. REVIEW OF SYSTEMS: As per history of present illness. PHYSICAL EXAMINATION GENERAL: When I examined her, she looked well and was clearly in no apparent respiratory distress, pale, no jaundice, cyanosis, or thyromegaly. No jugular venous distension. No lower limb edema. VITAL SIGNS: Her heart rate was 73, blood pressure 117/73, temperature was 98.1, respiratory rate was 18 and oxygen saturation was 97%. HEAD, EYES, EARS, NOSE, AND THROAT: Showed normocephalic, atraumatic. NECK: Supple. HEART: Showed normal first and second heart sounds. No gallop, rub or murmur. CHEST: Clear to auscultation. No crepitation or rhonchi. ABDOMEN: Distended, soft. NEUROLOGIC: She is awake, alert, responding appropriately. All cranial nerves intact. EXTREMITIES: She moves extremities without difficulty. She ambulates without assistance or assistive devices. LABORATORY DATA: Showed her serum iron was 82. TIBC was 292. Iron saturation was 28, magnesium was 1.7. Her serum triglyceride was 90, total cholesterol at 256, LDL was 115, VLDL was 18, HDL was 88 and the ratio was 2. Her 25-hydroxy vitamin D was low at 26 and TSH was slightly elevated at 5.9. Her most recent white cell count was 3400, hemoglobin 12.6, hematocrit 38, MCV 92, and platelet count of 190,000 with normal manual differential. Her most recent chemistry showed serum sodium of 148, potassium 4, chloride 109, bicarbonate 29, anion gap of 10, BUN 16, creatinine 0.7, estimated GFR was 82 mL per minute. Her glucose 130, calcium was 8.7. ASSESSMENT AND PLAN: In summary, this is a 73-year-old female patient. Medically, she is known to have hyperlipidemia, hypothyroidism, chronic liver disease, alcohol abuse, and glaucoma. Lab work showed that her vitamin D is low and I reviewed all her medication and they seemed to be appropriate. I will start her obviously on ergocalciferol. We will continue treatment of her UTI with Bactrim for 5 more days. Thank you, Dr. Castrejon, for allowing me to participate in the care of this patient. BRENDAN PEMBERTON MD DR: [place]ENT[place]/susan JOB#: [id number] / [id number]
[2018-10-01] MEDS: LEVOTHYROXINE 50 MCG TABLET PO SCH (05:35)
[2018-10-01 05:57] VITALS: BP 117/72
[2018-10-01 09:13] LABS: HEMOGLOBIN A1C 5.4 % (4.8-5.6)
[2018-10-01] MEDS: MULTIVITAMIN with MINERAL TABLET. PO SCH (09:34)
[2018-10-01] MEDS: SMZ/TMP 800/160MG TABLET. PO SCH ×2 (09:34→20:09)
[2018-10-01] MEDS: hydroCHLOROthiazide 12.5 MG CAPSULE PO SCH (09:34)
[2018-10-01] MEDS: CHOLECALCIFEROL (VITAMIN D3) 50,000 UNIT CAPSULE PO SCH (09:38)
[2018-10-01 15:44] VITALS: BP 104/64
[2018-10-01] MEDS: DIVALPROEX 125 MG CAP.SPRINK PO SCH (20:09)
[2018-10-01] MEDS: traZODone 50 MG TABLET. PO SCH (20:10)
[2018-10-01] MEDS: LACTOBACILLUS RHAMNOSUS GG 1 CAPSULE. PO SCH (20:10)
[2018-10-01] MEDS: TOPIRAMATE 25 MG TABLET. PO SCH (20:10)
--- NOTE | 2018-10-01 22:14 | PDOC ---
Exam Note: Parrish Note: Please also refer to the separate dictated note~for this date of service dictated separately.~Patient seen individually. Discussed the patient with Nursing staff reviewed the chart.~Reviewed interim history and current functioning. Reviewed vital signs,~Labs/ Radiology~and current medications noted below. Continue current treatment with the changes noted in the dictated addendum note Assessment: Vital Signs/I&O: Vital Signs Date Time Temp Pulse Resp B/P (MAP) Pulse Ox O2 Delivery O2 Flow Rate FiO2 10/01/18 15:44 97.7 61 17 104/64 (77) 99 Room Air I & O 09/30/18 09/30/18 10/01/18 15:00 23:00 07:00 Intake Total 480 ml 240 ml 420 ml Balance 480 ml 240 ml 420 ml Current Medications: Meds: Current Medications Medications (Trade) Dose Ordered Sig/Nova Route PRN Reason Start Time Stop Time Status Last Admin Dose Admin Vitamin D (Vitamin D3) 50,000 unit WEEKLY PO 10/01/18 09:00 10/01/18 09:38 Lactobacillus Rhamnosus (Culturelle) 1 cap BID PO 10/01/18 21:00 10/01/18 20:10 I have reviewed the current psychotropics carefully including drug interactions. Risk benefit ratio favors no change other than as noted in my dictated progress note. Diagnosis: Problems: (1) Alcohol dependence syndrome (2) Anxiety disorder (3) Major depressive disorder, recurrent episode (4) Bipolar affective disorder, mixed (5) Alcoholism /alcohol abuse MAGGIE WRIGHT MD Oct 01, 2018 22:14
--- NOTE | 2018-10-01 22:48 | PN ---
DATE: 09/30/2018 PSYCHIATRIC PROGRESS NOTE This late entry 09/30/2018 covers elements not covered in my initial note. SUBJECTIVE: I met with the patient at length in the evening. Staffed at a treatment team meeting with the entire team in the morning. The patient slept 6 hours previous night. She has been hyperverbal, somewhat grandiose, manic, distractable, anxious. Reviewed history at length with her. Discussed her diagnosis and she had many, many questions, which I answered. She is possibly facing care home time for her driving without a license which she lost due to her repeated DUIs. REVIEW OF SYSTEMS: No CV, , pulmonary, eye, ENT system symptoms on review. Reliability varies. MENTAL STATUS EXAM: Oriented reasonably. Speech coherent, rapid at times. Abstraction fair, computation impaired, language function intact, attention span short. Mood and affect remain somewhat grandiose, labile. LABORATORY DATA: Reviewed. IMPRESSION: Bipolar 1 disorder, mixed; anxiety disorder, unspecified; history of alcohol abuse or dependence. Rest unchanged. PLAN: Continue psychotropics from initial note. Maintain Topamax, Depakote initiated. Follow labs level, adjust as indicated. Continue trazodone, may repeat x 1 for insomnia and she is sleeping better on this. MAGGIE WRIGHT MD DR: GREGORY/susan JOB#: [id number] / [id number]
[2018-10-01] MEDS: traZODone 50 MG TABLET. PO PRN (23:40)
--- NOTE | 2018-10-02 01:00 | PN ---
DATE: 10/01/2018 PSYCHIATRIC PROGRESS NOTE This note covers the elements not covered in my initial notes 10/01/2018. SUBJECTIVE: I met with the patient the evening of 10/01/2018. The patient slept 7-1/4 hours last night, compliant with medications, took a repeat trazodone at night to help her sleep. REVIEW OF SYSTEMS: No CV, , pulmonary, eye system symptoms on review. MENTAL STATUS EXAM: Oriented to herself and situation. Speech coherent, less pressured. Abstraction fair, computation impaired, language function intact, attention span short. Mood and affect still grandiose, labile, but much improved. LABORATORY DATA: Reviewed. IMPRESSION: Unchanged from initial note. The patient is to read the book The Unquiet Mind by Dr. Interiano from [employer] about bipolar disorder and I have discussed with nursing staff to make it available to her on the tablet that I have provided the unit. PLAN: We will check a valproic acid level in the morning, then adjust to reach therapeutic level. Continue rest unchanged. MAN Liyah WRIGHT MD DR: GREGORY/susan JOB#: [id number] / [id number]
[2018-10-02] MEDS: LEVOTHYROXINE 50 MCG TABLET PO SCH (05:50)
[2018-10-02 06:04] VITALS: BP 107/69
[2018-10-02 08:30] LABS: BASO % 1 % (0-3); EOS # 0.1 x10^3/uL (0.0-0.7); EOS % 3 % (0-3); HEMATOCRIT 43.2 % (36.0-47.0); HEMOGLOBIN 14.1 g/dL (12.0-15.5); LYMPH % 28 % (24-48); MEAN CORPUSCULAR HEMOGLOBIN 30 pg (25-35); MEAN CORPUSCULAR HGB CONC 33 g/dL (31-37); MEAN CORPUSCULAR VOLUME 92 fL (79-100); MONO # 0.4 x10^3/uL (0.0-1.1); MONO % 10 % (0-9); NEUT # 2.1 x10^3uL (1.8-7.7); NEUT % 58 % (31-73); PLATELET COUNT 200 x10^3/uL (140-400); RED BLOOD COUNT 4.69 x10^6/uL (3.50-5.40); RED CELL DISTRIBUTION WIDTH 13.5 % (11.5-14.5); WHITE BLOOD COUNT 3.7 x10^3/uL (4.0-11.0)
[2018-10-02 08:46] LABS: ALBUMIN 4.1 g/dL (3.4-5.0); ALBUMIN/GLOBULIN RATIO 1.1 (1.0-1.7); ALK PHOS 51 U/L (46-116); ALT (SGPT) 29 U/L (14-59); ANION GAP 12 (6-14); AST (SGOT) 17 U/L (15-37); BLOOD UREA NITROGEN 22 mg/dL (7-20); BUN/CREATININE RATIO 22 (6-20); CALCIUM 9.5 mg/dL (8.5-10.1); CARBON DIOXIDE 25 mmol/L (21-32); CHLORIDE 102 mmol/L (98-107); GFR 54.3; GLUCOSE 95 mg/dL (70-99); POTASSIUM 4.1 mmol/L (3.5-5.1); SODIUM 139 mmol/L (136-145); TOTAL PROTEIN 7.9 g/dL (6.4-8.2)
[2018-10-02 08:51] LABS: VAL ACID 27 mcg/mL (50-100)
[2018-10-02] MEDS: LACTOBACILLUS RHAMNOSUS GG 1 CAPSULE. PO SCH ×2 (08:53→19:54)
[2018-10-02] MEDS: hydroCHLOROthiazide 12.5 MG CAPSULE PO SCH (08:53)
[2018-10-02] MEDS: MULTIVITAMIN with MINERAL TABLET. PO SCH (08:53)
[2018-10-02] MEDS: SMZ/TMP 800/160MG TABLET. PO SCH ×2 (08:53→19:54)
[2018-10-02 15:34] VITALS: BP 98/62
[2018-10-02] MEDS: TOPIRAMATE 25 MG TABLET. PO SCH (19:54)
[2018-10-02] MEDS: traZODone 50 MG TABLET. PO SCH (19:54)
[2018-10-02] MEDS: DIVALPROEX 125 MG CAP.SPRINK PO SCH (19:55)
[2018-10-02] MEDS: traZODone 50 MG TABLET. PO PRN (21:19)
[2018-10-03] MEDS: LEVOTHYROXINE 50 MCG TABLET PO SCH (04:59)
[2018-10-03 06:23] VITALS: BP 96/61
[2018-10-03] MEDS: LACTOBACILLUS RHAMNOSUS GG 1 CAPSULE. PO SCH ×2 (08:50→19:51)
[2018-10-03] MEDS: MULTIVITAMIN with MINERAL TABLET. PO SCH (08:51)
[2018-10-03] MEDS: hydroCHLOROthiazide 12.5 MG CAPSULE PO SCH (08:51)
[2018-10-03] MEDS: SMZ/TMP 800/160MG TABLET. PO SCH ×2 (08:51→19:51)
--- NOTE | 2018-10-03 10:30 | PN ---
DATE: 10/02/2018 SUBJECTIVE: The patient was seen today, met with the staff, chart reviewed. The patient has a past history of alcoholism. Apparently, she lost her a year ago. Apparently, she was drinking up to a fifth of vodka daily. The patient also has multiple physical problems. OBSERVATION: VITAL SIGNS: Temperature 99.1, blood pressure 107/69, pulse 56, respiration 18, O2 sat 95%. Slept about 7-1/2 hours last night. The patient is still having difficulty with sleep at night. The patient's lab reviewed. Her BUN was 22. MEDICATIONS: The patient's current medications include Depakote 375 mg at night, Topamax 25 mg at night, trazodone 50 mg at night, also trazodone 50 mg at night p.r.n., Haldol 5 mg q. 4 hours p.r.n. The patient was also placed on detox protocol, lorazepam 4 mg q. 1 hour p.r.n. The patient is not having any side effects currently, not having any major withdrawal symptoms. ASSESSMENT: Bipolar disorder, mixed, moderate; history of alcohol dependence; anxiety disorder, unspecified. PLAN: To continue with the current treatment. The patient is not a fall risk at this time. FATOUMATA NAYLOR MD DR: IGNACIO/susan JOB#: [id number] / [id number]
[2018-10-03 17:05] VITALS: BP 101/61
[2018-10-03] MEDS: DIVALPROEX 125 MG CAP.SPRINK PO SCH (19:51)
[2018-10-03] MEDS: TOPIRAMATE 25 MG TABLET. PO SCH (19:51)
[2018-10-03] MEDS: traZODone 50 MG TABLET. PO SCH (19:51)
--- NOTE | 2018-10-04 01:45 | PN ---
DATE: 10/03/2018 SUBJECTIVE: The patient was seen today, met with the staff, chart reviewed. The patient's behavior remains the same. The patient is still depressed, still dealing with the loss of her . The patient also has history of alcoholism, drinking fairly heavily prior to coming here. Slept about 7 hours last night. The patient is not having any other physical complaints. The patient is currently not expressing any suicidal thoughts. OBSERVATION: VITAL SIGNS: Temperature 97.6, blood pressure 96/61, pulse 67, respirations 18, O2 sat 94%. Slept about 7 hours last night. CURRENT MEDICATIONS: The patient's current medications include Depakote 375 mg at night, and Depakote level was 27, Topamax 25 mg at night and trazodone 50 mg at night p.r.n. The patient is also on Haldol 5 mg q.4 hours p.r.n. The patient is currently not showing any withdrawal symptoms. The patient had no evidence of any DTs or seizures. ASSESSMENT: Bipolar disorder, mixed, moderate, history of alcohol dependence; anxiety disorder, unspecified. PLAN: To continue with the treatment. We will explore patient's discharge options. LENGTH OF STAY: 5 days. FATOUMATA NAYLOR MD DR: IGNACIO/susan JOB#: [id number] / [id number]
[2018-10-04] MEDS: LEVOTHYROXINE 50 MCG TABLET PO SCH (05:31)
[2018-10-04 06:19] VITALS: BP 115/70
[2018-10-04] MEDS: MULTIVITAMIN with MINERAL TABLET. PO SCH (08:10)
[2018-10-04] MEDS: SMZ/TMP 800/160MG TABLET. PO SCH (08:10)
[2018-10-04] MEDS: hydroCHLOROthiazide 12.5 MG CAPSULE PO SCH (08:10)
[2018-10-04] MEDS: LACTOBACILLUS RHAMNOSUS GG 1 CAPSULE. PO SCH ×2 (08:10→20:55)
[2018-10-04 16:32] VITALS: BP 117/76
[2018-10-04] MEDS: traZODone 50 MG TABLET. PO SCH (20:55)
[2018-10-04] MEDS: TOPIRAMATE 25 MG TABLET. PO SCH (20:55)
[2018-10-04] MEDS: DIVALPROEX 125 MG CAP.SPRINK PO SCH (20:56)
--- NOTE | 2018-10-04 23:57 | PN ---
DATE: 10/04/2018 SUBJECTIVE: The patient was seen today, met with the staff, and chart reviewed. The patient continues to improve. Denies that she has any problems and she thinks she is ready for discharge. The patient is still dealing with the loss of her . The patient is still grieving. The patient did talk about her alcohol use, states she was a heavy drinker. She used to drink about a fifth a day and her last treatment was on 06/06/2018. She was at [facility] for 30 days and able to stay clean, but started drinking approximately a week prior to coming here, averaging at least a fifth of vodka daily. The patient states she has also had problems legally. She was on probation for DUI and apparently she violated her probation and she was sent to [facility] at [place] where she stayed for 28 days. Apparently, she did not like that program. The patient has had a total of 4 DUIs. The patient states she was told that her liver enzymes were elevated and also she had a liver biopsy in the past. The patient's last DUI was in . The patient states she had at least 3 total treatments in the past, 1 in [place] in 2014. OBJECTIVE: VITAL SIGNS: Temperature 98, blood pressure 115/70, pulse 82, respirations 18, O2 sats 100%. Slept about 7 hours last night. The patient's appetite improved. LABORATORY DATA: The patient's lab reviewed. CURRENT MEDICATIONS: Include Depakote 375 mg at night and her Depakote level was 27. The patient also on Topamax 25 mg at night and trazodone 50 mg at night. The patient is currently not showing any major withdrawal symptoms, but the patient still lacking insight to her problems, unrealistic with her goals. She is hoping to go home and stay clean. ASSESSMENT: 1. Bipolar disorder, mixed, moderate. 2. History of alcohol dependence. 3. Anxiety disorder, unspecified. PLAN: Continue with the treatment. We will discuss with the pediatric social worker with regard to discharge plan. Length of stay 3-5 days. FATOUMATA NAYLOR MD DR: IGNACIO/susan JOB#: [id number] / [id number]
[2018-10-05] MEDS: LEVOTHYROXINE 50 MCG TABLET PO SCH (05:31)
[2018-10-05 06:11] VITALS: BP 103/65
[2018-10-05 06:27] LABS: BASO % 1 % (0-3); EOS # 0.1 x10^3/uL (0.0-0.7); EOS % 4 % (0-3); HEMATOCRIT 38.5 % (36.0-47.0); HEMOGLOBIN 13.1 g/dL (12.0-15.5); LYMPH # 1.1 x10^3/uL (1.0-4.8); LYMPH % 31 % (24-48); MEAN CORPUSCULAR HEMOGLOBIN 31 pg (25-35); MEAN CORPUSCULAR HGB CONC 34 g/dL (31-37); MEAN CORPUSCULAR VOLUME 91 fL (79-100); MONO # 0.4 x10^3/uL (0.0-1.1); MONO % 12 % (0-9); NEUT # 1.9 x10^3uL (1.8-7.7); NEUT % 53 % (31-73); PLATELET COUNT 162 x10^3/uL (140-400); RED BLOOD COUNT 4.24 x10^6/uL (3.50-5.40); RED CELL DISTRIBUTION WIDTH 13.3 % (11.5-14.5); WHITE BLOOD COUNT 3.6 x10^3/uL (4.0-11.0)
[2018-10-05 06:30] LABS: ALBUMIN 3.6 g/dL (3.4-5.0); ALK PHOS 46 U/L (46-116); ALT (SGPT) 23 U/L (14-59); ANION GAP 8 (6-14); AST (SGOT) 12 U/L (15-37); BLOOD UREA NITROGEN 21 mg/dL (7-20); BUN/CREATININE RATIO 26 (6-20); CALCIUM 9.4 mg/dL (8.5-10.1); CARBON DIOXIDE 29 mmol/L (21-32); CHLORIDE 104 mmol/L (98-107); CREATININE 0.8 mg/dL (0.6-1.0); GFR 70.3; GLUCOSE 101 mg/dL (70-99); POTASSIUM 3.9 mmol/L (3.5-5.1); SODIUM 141 mmol/L (136-145); TOTAL BILIRUBIN 0.5 mg/dL (0.2-1.0); TOTAL PROTEIN 7.1 g/dL (6.4-8.2)
[2018-10-05 06:32] LABS: VAL ACID 38 mcg/mL (50-100)
[2018-10-05 08:16] VITALS: BP 106/72
[2018-10-05] MEDS: hydroCHLOROthiazide 12.5 MG CAPSULE PO SCH ×2 (09:00→10:12)
[2018-10-05] MEDS: MULTIVITAMIN with MINERAL TABLET. PO SCH (10:11)
[2018-10-05] MEDS: LACTOBACILLUS RHAMNOSUS GG 1 CAPSULE. PO SCH ×2 (10:11→19:44)
[2018-10-05 16:17] VITALS: BP 108/73
[2018-10-05] MEDS: DIVALPROEX 125 MG CAP.SPRINK PO SCH (19:44)
[2018-10-05] MEDS: TOPIRAMATE 25 MG TABLET. PO SCH (19:44)
[2018-10-05] MEDS: traZODone 50 MG TABLET. PO SCH (19:44)
--- NOTE | 2018-10-05 23:01 | PN ---
DATE: 10/05/2018 SUBJECTIVE: The patient was seen today, met with the staff, chart reviewed. The patient's behavior has improved. The patient is not showing any major withdrawal symptoms. The patient also is irritable because she is not able to leave the hospital yet. The patient is unreasonable at this point with regard to her treatment plan. The patient thinks she can go home and stop drinking. The patient currently not wanting to go to a rehab program. The patient is also under a lot of pressure because she has to deal with the legal problems including the recent DUI. OBSERVATION: VITAL SIGNS: Stable. LABORATORY DATA: Reviewed. The patient is sleeping better. CURRENT MEDICATIONS: Include Depakote 375 mg at night, Topamax 25 mg at night and trazodone 50 mg at night. The patient is not showing any major withdrawal symptoms. The patient is not depressed, but the patient shows impulse control and low frustration tolerance. ASSESSMENT: 1. Bipolar disorder, mixed, moderate. 2. History of alcohol dependence. 3. Anxiety disorder, unspecified. PLAN: To continue with the treatment. LENGTH OF STAY: 3 days. FATOUMATA NAYLOR MD DR: IGNACIO/susan JOB#: [id number] / [id number]
[2018-10-06] MEDS: LEVOTHYROXINE 50 MCG TABLET PO SCH (05:39)
[2018-10-06 06:19] VITALS: BP 96/61
[2018-10-06] MEDS: LACTOBACILLUS RHAMNOSUS GG 1 CAPSULE. PO SCH ×2 (09:01→19:22)
[2018-10-06] MEDS: MULTIVITAMIN with MINERAL TABLET. PO SCH (09:01)
[2018-10-06] MEDS: hydroCHLOROthiazide 12.5 MG CAPSULE PO SCH (09:01)
[2018-10-06 15:53] VITALS: BP 95/63
[2018-10-06] MEDS: DIVALPROEX 125 MG CAP.SPRINK PO SCH (19:22)
[2018-10-06] MEDS: TOPIRAMATE 25 MG TABLET. PO SCH (19:22)
[2018-10-06] MEDS: traZODone 50 MG TABLET. PO SCH ×2 (19:22→21:33)
--- NOTE | 2018-10-06 23:33 | PN ---
DATE: 10/06/2018 SUBJECTIVE: The patient was seen today, met with the staff, chart reviewed. Staff reports no major behavior problem, still the patient wanting to leave. The patient continues to minimize her problems with alcohol use. The patient apparently has been cooperative today, participating in all the activities. The patient has been talking about her problems including legal problems getting a DUI this year: VITAL SIGNS: Temperature 98.1, blood pressure 96/61, pulse 62, respirations 16, O2 sat 98%. Slept about 7 hours last night. LABORATORY DATA: The patient's lab reviewed. MEDICATIONS: The patient's current medication includes Depakote 375 mg at night, Topamax 25 mg at night and trazodone 50 mg at night. The patient is currently not showing any major withdrawal symptoms. No side effects to the medications. ASSESSMENT: 1. Bipolar disorder, mixed, moderate. 2. Alcohol-induced mood disorder. 3. Anxiety disorder, unspecified. PLAN: To continue with the treatment. LENGTH OF STAY: 3-4 days. FATOUMATA NAYLOR MD DR: IGNACIO/susan JOB#: [id number] / [id number]
[2018-10-07] MEDS: LEVOTHYROXINE 50 MCG TABLET PO SCH (05:34)
[2018-10-07 06:13] VITALS: BP 106/61
[2018-10-07] MEDS: LACTOBACILLUS RHAMNOSUS GG 1 CAPSULE. PO SCH ×2 (09:00→20:19)
[2018-10-07] MEDS: MULTIVITAMIN with MINERAL TABLET. PO SCH (09:01)
[2018-10-07] MEDS: hydroCHLOROthiazide 12.5 MG CAPSULE PO SCH (09:02)
[2018-10-07 15:59] VITALS: BP 118/65
[2018-10-07] MEDS: DIVALPROEX 125 MG CAP.SPRINK PO SCH (20:19)
[2018-10-07] MEDS: TOPIRAMATE 25 MG TABLET. PO SCH (20:20)
[2018-10-07] MEDS: traZODone 50 MG TABLET. PO SCH (20:21)
[2018-10-07] MEDS: traZODone 50 MG TABLET. PO PRN (23:28)
--- NOTE | 2018-10-08 02:43 | PN ---
DATE: 10/07/2018 SUBJECTIVE: The patient was seen today, met with the staff, chart reviewed. The patient apparently not presenting with any major behavior problems, much improved, not depressed. The patient is not asking for discharge at this point. OBJECTIVE: VITAL SIGNS: Temperature 98.2, blood pressure 106/61, pulse 50, respirations 18, O2 sat 98%. Slept about 7 hours last night. The patient's appetite has improved. The patient is not having any side effects to the medications. CURRENT MEDICATIONS: Include Depakote 375 mg at night, Topamax 25 mg at night and trazodone 50 mg at night. The patient is currently not showing any major withdrawal symptoms. ASSESSMENT: 1. Bipolar disorder, mixed, moderate. 2. Alcohol-induced mood disorder. 3. Anxiety disorder, unspecified. PLAN: To continue with the treatment. LENGTH OF STAY: 3-4 days. Social service is exploring discharge options because of the patient's high risk for relapse. FATOUMATA NAYLOR MD DR: IGNACIO/susan JOB#: [id number] / [id number]
[2018-10-08] MEDS: LEVOTHYROXINE 50 MCG TABLET PO SCH (06:05)
[2018-10-08 06:20] VITALS: BP 109/74
[2018-10-08] MEDS: hydroCHLOROthiazide 12.5 MG CAPSULE PO SCH (09:03)
[2018-10-08] MEDS: MULTIVITAMIN with MINERAL TABLET. PO SCH (09:03)
[2018-10-08] MEDS: LACTOBACILLUS RHAMNOSUS GG 1 CAPSULE. PO SCH ×2 (09:04→19:46)
[2018-10-08] MEDS: CHOLECALCIFEROL (VITAMIN D3) 50,000 UNIT CAPSULE PO SCH (09:05)
[2018-10-08 16:01] VITALS: BP 112/85
[2018-10-08] MEDS: TOPIRAMATE 25 MG TABLET. PO SCH (19:46)
[2018-10-08] MEDS: traZODone 50 MG TABLET. PO SCH (19:46)
[2018-10-08] MEDS: DIVALPROEX 125 MG CAP.SPRINK PO SCH (19:46)
[2018-10-08] MEDS: traZODone 50 MG TABLET. PO PRN (21:29)
--- NOTE | 2018-10-08 23:02 | PN ---
DATE: 10/08/2018 SUBJECTIVE: The patient was seen today, met with the staff, chart reviewed. The patient is showing improvement, pleasant, medication compliant, and tends to be intrusive. The patient indecisive about decisions she is making, worried about the legal problems, dealing with the DUI. The patient finally agreed that she is going to go to [facility] for her intensive outpatient treatment program. OBJECTIVE: VITAL SIGNS: Temperature 97.6, blood pressure 109/74, pulse 78, respirations 20, O2 sat 100%. Slept about 6 hours last night. Appetite normal. The patient's lab reviewed. MEDICATIONS: The patient's current medication includes Depakote 375 mg at night, Topamax 25 mg at night and trazodone 50 mg at night. The patient is not showing any major withdrawal symptoms. ASSESSMENT: 1. Bipolar disorder, mixed, moderate. 2. Alcohol-induced mood disorder. 3. Anxiety disorder, unspecified. PLAN: To continue with the treatment and the patient is awaiting for placement. The patient probably will discharge next week. FATOUMATA NAYLOR MD DR: IGNACIO/susan JOB#: [id number] / [id number]
[2018-10-09] MEDS: LEVOTHYROXINE 50 MCG TABLET PO SCH (05:52)
[2018-10-09 06:22] VITALS: BP 100/66
[2018-10-09] MEDS: hydroCHLOROthiazide 12.5 MG CAPSULE PO SCH (08:22)
[2018-10-09] MEDS: MULTIVITAMIN with MINERAL TABLET. PO SCH (08:22)
[2018-10-09] MEDS: LACTOBACILLUS RHAMNOSUS GG 1 CAPSULE. PO SCH ×2 (08:22→19:44)
[2018-10-09 15:48] VITALS: BP 101/68
[2018-10-09] MEDS: TOPIRAMATE 25 MG TABLET. PO SCH (19:44)
[2018-10-09] MEDS: traZODone 50 MG TABLET. PO SCH (19:44)
[2018-10-09] MEDS: DIVALPROEX 125 MG CAP.SPRINK PO SCH (19:44)
[2018-10-09] MEDS: traZODone 50 MG TABLET. PO PRN (21:27)
--- NOTE | 2018-10-09 21:55 | PDOC ---
Exam Note: Parrish Note: Please also refer to the separate dictated note~for this date of service dictated separately.~Patient seen individually. Discussed the patient with Nursing staff reviewed the chart.~Reviewed interim history and current functioning. Reviewed vital signs,~Labs/ Radiology~and current medications noted below. Continue current treatment with the changes noted in the dictated addendum note Assessment: Vital Signs/I&O: Vital Signs Date Time Temp Pulse Resp B/P (MAP) Pulse Ox O2 Delivery O2 Flow Rate FiO2 10/09/18 15:48 97.7 61 16 101/68 (79) 95 Room Air I & O 10/08/18 10/08/18 10/09/18 14:59 22:59 06:59 Intake Total 720 ml 240 ml 200 ml Balance 720 ml 240 ml 200 ml Current Medications: Meds: Current Medications Medications (Trade) Dose Ordered Sig/Nova Route PRN Reason Start Time Stop Time Status Last Admin Dose Admin Divalproex Sodium (Depakote Sprinkles) 375 mg BID PO 10/09/18 21:00 10/09/18 19:44 I have reviewed the current psychotropics carefully including drug interactions. Risk benefit ratio favors no change other than as noted in my dictated progress note. Diagnosis: Problems: (1) Alcohol withdrawal (2) Alcohol dependence syndrome (3) Alcohol induced acute pancreatitis (4) Alcohol dependence with intoxication (5) Alcohol dependence with withdrawal delirium (6) Alcohol dependence with physiological dependence (7) Alcohol dependence with delirium (8) Patient left without being seen (9) Hypertension (10) Hypokalemia (11) Hypomagnesemia (12) Anxiety disorder (13) Major depressive disorder, recurrent episode (14) Maxillary sinusitis, acute (15) Bipolar affective disorder, mixed (16) Chest pain (17) Multiple falls (18) Mild concussion (19) Leukopenia (20) Elevated liver function tests (21) Closed bimalleolar fracture of left ankle (22) Fall at home (23) Facial contusion (24) Facial fracture due to fall (25) Alcoholism /alcohol abuse MAGGIE WRIGHT MD Oct 09, 2018 21:55
[2018-10-10] MEDS: LEVOTHYROXINE 50 MCG TABLET PO SCH (05:30)
[2018-10-10 06:03] VITALS: BP 154/66
[2018-10-10 06:05] VITALS: BP 106/69
[2018-10-10] MEDS: MULTIVITAMIN with MINERAL TABLET. PO SCH (07:48)
[2018-10-10] MEDS: DIVALPROEX 125 MG CAP.SPRINK PO SCH ×2 (07:48→20:51)
[2018-10-10] MEDS: LACTOBACILLUS RHAMNOSUS GG 1 CAPSULE. PO SCH ×2 (07:49→20:51)
[2018-10-10] MEDS: hydroCHLOROthiazide 12.5 MG CAPSULE PO SCH (07:49)
[2018-10-10 16:42] VITALS: BP 100/68
[2018-10-10] MEDS: traZODone 50 MG TABLET. PO SCH (20:51)
[2018-10-10] MEDS: TOPIRAMATE 25 MG TABLET. PO SCH (20:51)
--- NOTE | 2018-10-10 22:34 | PDOC ---
Exam Note: Parrish Note: Please also refer to the separate dictated note~for this date of service dictated separately.~Patient seen individually. Discussed the patient with Nursing staff reviewed the chart.~Reviewed interim history and current functioning. Reviewed vital signs,~Labs/ Radiology~and current medications noted below. Continue current treatment with the changes noted in the dictated addendum note Assessment: Vital Signs/I&O: Vital Signs Date Time Temp Pulse Resp B/P (MAP) Pulse Ox O2 Delivery O2 Flow Rate FiO2 10/10/18 16:42 97.6 59 16 100/68 (79) 96 10/09/18 15:48 Room Air I & O 10/09/18 10/09/18 10/10/18 14:59 22:59 06:59 Intake Total 840 ml 240 ml 200 ml Balance 840 ml 240 ml 200 ml Current Medications: I have reviewed the current psychotropics carefully including drug interactions. Risk benefit ratio favors no change other than as noted in my dictated progress note. Diagnosis: Problems: (1) Alcohol dependence syndrome (2) Anxiety disorder (3) Major depressive disorder, recurrent episode (4) Bipolar affective disorder, mixed (5) Alcoholism /alcohol abuse MAGGIE WRIGHT MD Oct 10, 2018 22:34
[2018-10-11 06:01] VITALS: BP 110/71
[2018-10-11] MEDS: LEVOTHYROXINE 50 MCG TABLET PO SCH (06:24)
[2018-10-11] MEDS: LACTOBACILLUS RHAMNOSUS GG 1 CAPSULE. PO SCH ×2 (08:09→19:46)
[2018-10-11] MEDS: hydroCHLOROthiazide 12.5 MG CAPSULE PO SCH (08:09)
[2018-10-11] MEDS: DIVALPROEX 125 MG CAP.SPRINK PO SCH ×2 (08:09→19:46)
[2018-10-11] MEDS: MULTIVITAMIN with MINERAL TABLET. PO SCH (08:09)
[2018-10-11 16:29] VITALS: BP 115/78
[2018-10-11] MEDS: traZODone 50 MG TABLET. PO SCH (19:46)
[2018-10-11] MEDS: TOPIRAMATE 25 MG TABLET. PO SCH (19:46)
[2018-10-11] MEDS: traZODone 50 MG TABLET. PO PRN (21:21)
--- NOTE | 2018-10-11 22:28 | PDOC ---
Exam Note: Parrish Note: Please also refer to the separate dictated note~for this date of service dictated separately.~Patient seen individually. Discussed the patient with Nursing staff reviewed the chart.~Reviewed interim history and current functioning. Reviewed vital signs,~Labs/ Radiology~and current medications noted below. Continue current treatment with the changes noted in the dictated addendum note Assessment: Vital Signs/I&O: Vital Signs Date Time Temp Pulse Resp B/P (MAP) Pulse Ox O2 Delivery O2 Flow Rate FiO2 10/11/18 16:29 97.3 60 18 115/78 (90) 98 10/09/18 15:48 Room Air I & O 10/10/18 10/10/18 10/11/18 15:00 23:00 07:00 Intake Total 480 ml 480 ml Balance 480 ml 480 ml Current Medications: I have reviewed the current psychotropics carefully including drug interactions. Risk benefit ratio favors no change other than as noted in my dictated progress note. Diagnosis: Problems: (1) Alcohol dependence syndrome (2) Anxiety disorder (3) Major depressive disorder, recurrent episode (4) Bipolar affective disorder, mixed (5) Alcoholism /alcohol abuse MAGGIE WRIGHT MD Oct 11, 2018 22:28
--- NOTE | 2018-10-12 00:24 | PN ---
DATE: 10/09/2018 PSYCHIATRIC PROGRESS NOTE This is a late entry 10/09/2018 covers elements not covered in my initial note. SUBJECTIVE: I met with the patient in the evening. Reviewed the patient's history and interim information from Dr. Fishman, who covered for me over the past 1 week. Overall, the patient remains somewhat hyperverbal at times, less grandiose, less labile in her mood, more insightful about her alcohol usage. REVIEW OF SYSTEMS: No CV, , pulmonary, eye, ENT system symptoms on review. Reliability fair. MENTAL STATUS EXAMINATION: Oriented reasonably. Speech coherent, still somewhat pressured. Abstraction fair. Computation impaired. Language function intact. Attention span short. Mood and affect remain somewhat hypomanic, but improved. LABORATORY DATA: Reviewed. Valproic acid level 38 on Depakote Sprinkles 375 mg at bedtime. IMPRESSION: Unchanged from initial note. PLAN: Increase Depakote to 375 mg twice a day. Check CBC, CMP, valproic acid level in 3 days. Maintain Topamax, trazodone along with Ativan p.r.n. for now. MAN Liyah WRIGHT MD DR: GREGORY/susan JOB#: [id number] / [id number]
--- NOTE | 2018-10-12 00:29 | PN ---
DATE: 10/10/2018 PSYCHIATRIC PROGRESS NOTE SUBJECTIVE: The patient was seen on rounds at length, evening of 10/10/2018. Discussed with nursing staff, reviewed the chart. The patient slept 7 hours previous night. She has been anxious, restless, wanting to be discharged. We discussed plans that the executive secretary social welfare Rosa Elena had made with the patient for Partial Hospital Program at the [facility]. Additionally, we are adjusting the Depakote to reach a therapeutic level. We should help with her bipolar stabilization prior to discharge. I addressed this at length with the patient. REVIEW OF SYSTEMS: No CV, , pulmonary, eye, ENT system symptoms on review. MENTAL STATUS EXAM: Oriented reasonably. Speech coherent, less pressured. Abstraction fair, computation impaired, language function intact, attention span short. Mood and affect showing improvement. No active suicidal ideation. LABORATORY DATA: Reviewed. IMPRESSION: Unchanged from initial note. PLAN: No change from initial note. Depakote has been increased to 375 mg b.i.d. with CBC, CMP, valproic acid level due in 3 days. Adjust further as clinically indicated. MAGGIE WRIGHT MD DR: GREGORY/susan JOB#: [id number] / [id number]
[2018-10-12] MEDS ORDERED: CHOL500021 PO (02:59)
[2018-10-12] MEDS ORDERED: DIVA125C2 PO (03:01)
[2018-10-12] MEDS ORDERED: LACT1CAP21 PO (03:04)
[2018-10-12] MEDS ORDERED: LEVO50TA PO (03:05)
[2018-10-12] MEDS ORDERED: MAG30ORA2 PO (03:08)
[2018-10-12] MEDS ORDERED: MAGN400O7 PO (03:09)
[2018-10-12] MEDS ORDERED: METH29OI TP (03:11)
[2018-10-12] MEDS ORDERED: TOPI25TA52 PO (03:17)
[2018-10-12 06:03] VITALS: BP 108/69
[2018-10-12] MEDS: LEVOTHYROXINE 50 MCG TABLET PO SCH (06:14)
[2018-10-12 07:38] LABS: BASO % 1 % (0-3); EOS # 0.1 x10^3/uL (0.0-0.7); EOS % 3 % (0-3); HEMATOCRIT 42.7 % (36.0-47.0); HEMOGLOBIN 14.4 g/dL (12.0-15.5); LYMPH # 1.4 x10^3/uL (1.0-4.8); LYMPH % 35 % (24-48); MEAN CORPUSCULAR HEMOGLOBIN 31 pg (25-35); MEAN CORPUSCULAR HGB CONC 34 g/dL (31-37); MEAN CORPUSCULAR VOLUME 91 fL (79-100); MONO # 0.3 x10^3/uL (0.0-1.1); MONO % 8 % (0-9); NEUT # 2.1 x10^3uL (1.8-7.7); NEUT % 53 % (31-73); PLATELET COUNT 191 x10^3/uL (140-400); RED BLOOD COUNT 4.68 x10^6/uL (3.50-5.40); WHITE BLOOD COUNT 3.9 x10^3/uL (4.0-11.0)
[2018-10-12 07:41] LABS: ALBUMIN/GLOBULIN RATIO 1.1 (1.0-1.7); ALK PHOS 49 U/L (46-116); ALT (SGPT) 25 U/L (14-59); ANION GAP 9 (6-14); AST (SGOT) 15 U/L (15-37); BLOOD UREA NITROGEN 20 mg/dL (7-20); BUN/CREATININE RATIO 29 (6-20); CALCIUM 9.5 mg/dL (8.5-10.1); CARBON DIOXIDE 31 mmol/L (21-32); CHLORIDE 102 mmol/L (98-107); CREATININE 0.7 mg/dL (0.6-1.0); GLUCOSE 89 mg/dL (70-99); POTASSIUM 3.6 mmol/L (3.5-5.1); SODIUM 142 mmol/L (136-145); TOTAL BILIRUBIN 0.6 mg/dL (0.2-1.0); TOTAL PROTEIN 7.6 g/dL (6.4-8.2)
[2018-10-12 07:49] LABS: VAL ACID 62 mcg/mL (50-100)
[2018-10-12] MEDS: MULTIVITAMIN with MINERAL TABLET. PO SCH (07:55)
[2018-10-12] MEDS: LACTOBACILLUS RHAMNOSUS GG 1 CAPSULE. PO SCH (07:56)
[2018-10-12] MEDS: hydroCHLOROthiazide 12.5 MG CAPSULE PO SCH (07:56)
[2018-10-12] MEDS: DIVALPROEX 125 MG CAP.SPRINK PO SCH (07:56)
[2018-10-12 07:57] VITALS: BP 108/69
--- NOTE | 2018-10-12 18:29 | PDOC ---
Exam Note: Parrish Note: Please also refer to the separate dictated note~for this date of service dictated separately.~Patient seen individually. Discussed the patient with Nursing staff reviewed the chart.~Reviewed interim history and current functioning. Reviewed vital signs,~Labs/ Radiology~and current medications noted below. Continue current treatment with the changes noted in the dictated addendum note Assessment: Vital Signs/I&O: Vital Signs Date Time Temp Pulse Resp B/P (MAP) Pulse Ox O2 Delivery O2 Flow Rate FiO2 10/12/18 07:57 52 108/69 10/12/18 06:03 97.4 17 96 Room Air I & O 10/11/18 10/11/18 10/12/18 15:00 23:00 07:00 Intake Total 600 ml 240 ml Balance 600 ml 240 ml Labs: Laboratory Tests Test 10/12/18 06:45 White Blood Count 3.9 x10^3/uL (4.0-11.0) L Red Blood Count 4.68 x10^6/uL (3.50-5.40) Hemoglobin 14.4 g/dL (12.0-15.5) Hematocrit 42.7 % (36.0-47.0) Mean Corpuscular Volume 91 fL (79-100) Mean Corpuscular Hemoglobin 31 pg (25-35) Mean Corpuscular Hemoglobin Concent 34 g/dL (31-37) Red Cell Distribution Width 13.0 % (11.5-14.5) Platelet Count 191 x10^3/uL (140-400) Neutrophils (%) (Auto) 53 % (31-73) Lymphocytes (%) (Auto) 35 % (24-48) Monocytes (%) (Auto) 8 % (0-9) Eosinophils (%) (Auto) 3 % (0-3) Basophils (%) (Auto) 1 % (0-3) Neutrophils # (Auto) 2.1 x10^3uL (1.8-7.7) Lymphocytes # (Auto) 1.4 x10^3/uL (1.0-4.8) Monocytes # (Auto) 0.3 x10^3/uL (0.0-1.1) Eosinophils # (Auto) 0.1 x10^3/uL (0.0-0.7) Basophils # (Auto) 0.0 x10^3/uL (0.0-0.2) Sodium Level 142 mmol/L (136-145) Potassium Level 3.6 mmol/L (3.5-5.1) Chloride Level 102 mmol/L (98-107) Carbon Dioxide Level 31 mmol/L (21-32) Anion Gap 9 (6-14) Blood Urea Nitrogen 20 mg/dL (7-20) Creatinine 0.7 mg/dL (0.6-1.0) Estimated GFR (Cockcroft-Gault) 82.0 BUN/Creatinine Ratio 29 (6-20) H Glucose Level 89 mg/dL (70-99) Calcium Level 9.5 mg/dL (8.5-10.1) Total Bilirubin 0.6 mg/dL (0.2-1.0) Aspartate Amino Transferase (AST) 15 U/L (15-37) Alanine Aminotransferase (ALT) 25 U/L (14-59) Alkaline Phosphatase 49 U/L (46-116) Total Protein 7.6 g/dL (6.4-8.2) Albumin 4.0 g/dL (3.4-5.0) Albumin/Globulin Ratio 1.1 (1.0-1.7) Valproic Acid Level 62 mcg/mL (50-100) Valproic Acid Last Dose Date 10/11/18 Valproic Acid Last Dose Time 2100 Current Medications: I have reviewed the current psychotropics carefully including drug interactions. Risk benefit ratio favors no change other than as noted in my dictated progress note. Diagnosis: Problems: (1) Bipolar affective disorder, mixed (2) Anxiety disorder (3) Alcohol dependence syndrome MAGGIE WRIGHT MD Oct 12, 2018 18:29
--- NOTE | 2018-10-13 05:23 | PN ---
DATE: 10/11/2018 PSYCHIATRIC PROGRESS NOTE This is a late entry 10/11/2018 covers elements not covered in my initial note. SUBJECTIVE: I met with the patient in the evening of 10/11/2018. The patient slept 6-1/2 hours previous night. Also discussed with Rosa Elena [facility] regarding outpatient followup post-hospitalization. The patient had been requesting to be discharged prematurely but was in agreement to stay another day for us to draw her labs on the Depako, of 10/12/2018 prior to transitioning to outpatient all day program treatment. REVIEW OF SYSTEMS: No CV, , pulmonary, eye, ENT system symptoms on review. MENTAL STATUS EXAM: The patient is reasonably oriented. Speech is coherent, less pressured. Abstraction fair, computation reasonable, language function intact, attention span short. No suicidal or homicidal ideation. She is more insightful about her alcohol abuse. LABORATORY DATA: Reviewed. IMPRESSION: Unchanged from initial note. PLAN: No change from initial note. Check labs morning of 10/12/2018 prior to discharge to make sure valproic acid level is therapeutic. MAN Liyah WRIGHT MD DR: GREGORY/susan JOB#: [id number] / [id number]
--- NOTE | 2018-10-13 19:14 | DS ---
DATE OF DISCHARGE: 10/12/2018 REASON FOR ADMISSION: Please refer to the admission history for details. Briefly, the patient is a 73-year-old female [facility] from [address] [place] [address] where she was hospitalized by Dr. Dodd on account of alcohol abuse, which was recurrent and she had failed a recent inpatient stay at [facility] for her alcohol dependence. She was also facing possible senior care time for driving without a license. Additionally, history was reflective of her diagnosis of bipolar disorder. Behaviors were deemed dangerous, unmanageable, had failed outpatient psychiatric interventions resulting in this referral. SIGNIFICANT FINDINGS AND CLINICAL COURSE: Following admission, the patient was seen daily individually by myself from a psychiatric standpoint, medical followup with Dr. King. The patient was noted to be quite manic, hyperverbal, grandiose with marked mood lability. She seemed to minimize her alcohol problems. Adjustments were made in her psychotropics and she seemed to respond to a combination of Depakote Sprinkles 375 mg b.i.d. with a therapeutic valproic acid level, trazodone 50 mg at bedtime p.r.n., may repeat x 1 for insomnia, Topamax added 25 mg at bedtime. Additionally as a mood stabilizer at the patient's request since she felt the other psychotropics would increase her weight problems. She is also on Ativan and Haldol p.r.n. Prior to discharge on 10/12/2018, no CV, , pulmonary, eye, ENT system symptoms on review. MENTAL STATUS EXAM: Reasonably oriented. Speech coherent, less pressured. 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 Abstraction fair. No active psychotic symptoms, suicidal or homicidal ideation. Mood and affect appeared more stable. LABORATORY DATA: Reviewed. FINAL DIAGNOSES: Bipolar 1 disorder, mixed with psychotic features, in partial remission, alcohol dependence, in partial remission, status post alcohol withdrawal syndrome, anxiety disorder, unspecified. Rest unchanged from admission. DISCHARGE MEDICATIONS: Please refer to the MRAD. DISCHARGE INSTRUCTIONS: Outpatient psychiatric and medical followup with Dr. Dodd with a repeat valproic acid level to be done on 10/15/2018. Time for discharge day management greater than 30 minutes. MAN Liyah WRIGHT MD DR: GREGORY/susan JOB#: [id number] / [id number]
== END 2018-10-12 12:00 | disposition home or self-care (01) | DRG 885 ==
LOC: GEROPSY 14:29
PROVIDERS: ADMIT Psychiatry & Neurology Psychiatry; ATTEND Psychiatry & Neurology Psychiatry
DX: F31.60 Bipolar disorder, current episode mixed, unspecified (principal); F10.239 Alcohol dependence with withdrawal, unspecified; F10.24 Alcohol dependence with alcohol-induced mood disorder; N39.0 Urinary tract infection, site not specified; D72.819 Decreased white blood cell count, unspecified; E03.9 Hypothyroidism, unspecified; E78.5 Hyperlipidemia, unspecified; E83.42 Hypomagnesemia; E87.6 Hypokalemia; F10.229 Alcohol dependence with intoxication, unspecified; F41.9 Anxiety disorder, unspecified; G47.00 Insomnia, unspecified; H40.9 Unspecified glaucoma; I10 Essential (primary) hypertension; J01.90 Acute sinusitis, unspecified; J32.0 Chronic maxillary sinusitis; K21.9 Gastro-esophageal reflux disease without esophagitis; K76.9 Liver disease, unspecified; R29.6 Repeated falls; Z65.3 Problems related to other legal circumstances; Z79.899 Other long term (current) drug therapy; Z82.49 Family history of ischemic heart disease and other diseases of the circulatory system; Z86.010 Personal history of colon polyps; Z87.442 Personal history of urinary calculi; Z87.891 Personal history of nicotine dependence; Z90.710 Acquired absence of both cervix and uterus; Z83.3 Family history of diabetes mellitus; Z90.49 Acquired absence of other specified parts of digestive tract; Z90.722 Acquired absence of ovaries, bilateral
CPT/HCPCS: 36415; 80053; 80061; 80164; 82140; 82306; 83036; 83540; 83550; 83735; 84436; 84443; 84480; 85025; 86592

== ENCOUNTER 2018-11-19 21:28 | Emergency (ER) | payer MEDICARE ==
[~2018-11-19] VITALS: Ht 162.6 cm; Wt 77.8 kg
[~2018-11-19 21:28] MED LIST changes: +CHOL500021 PO; +DIVA125C2 PO; +LACT1CAP21 PO; +LEVO50TA PO; +MAG30ORA2 PO; +MAGN400O7 PO; +METH29OI TP; +ONDA4TAB7 PO; +SULF1TAB24 PO
--- NOTE | 2018-11-19 21:47 | ED.ADGEN ---
Past History Past Medical History: Alcoholism, High Cholesterol, Hypertension, Hypothyroid Past Surgical History: Hysterectomy, Tonsillectomy, Other Smoking: Non-smoker Alcohol Use: Heavy Drug Use: None Adult General Chief Complaint Chief Complaint ".. I was cleaning my floors.. and I got up to let my cat out.. "[place]".. but I slipped on the floor.. and hit the Lt side of my head.. and my Lt hip.. when I fell.. I am not going to be admitted... I got a AA.. meeting in the morning..." HPI HPI Patient is a 73 year old female who presents with above hx and complaints of fall. Patient denies any loss of consciousness. Patient complains of contusion to left side of her head and left hip. Patient has been ambulatory since fall. Patient denies other injury. Patient is not on a anti-regulation med. Patient has been sober the last 6 months with no alcohol intake. Patient denies any recent changes in meds. Patient has significant medical history for our [place], hypertension, hypothyroid.. Patient normally follows Dr. Robledo. Review of Systems Review of Systems Constitutional: Denies fever or chills [] Eyes: Denies change in visual acuity, redness, or eye pain [] HENT: Denies nasal congestion or sore throat []patient complains of head injury on right side Respiratory: Denies cough or shortness of breath [] Cardiovascular: No additional information not addressed in HPI [] GI: Denies abdominal pain, nausea, vomiting, bloody stools or diarrhea [] : Denies dysuria or hematuria [] Musculoskeletal: Denies back pain or joint pain []complains of right hip pain Integument: Denies rash or skin lesions [] Neurologic: Denies headache, focal weakness or sensory changes [] Endocrine: Denies polyuria or polydipsia [] All other systems were reviewed and found to be within normal limits, except as documented in this note. Family History Family History Noncontributory Current Medications Current Medications Current Medications Medications (Trade) Dose Ordered Sig/Nova Start Time Stop Time Status Last Admin Dose Admin Folic Acid (FOLIC ACID SYRINGE for ER) 5 mg STK-MED ONCE 11/19/18 22:30 11/19/18 22:31 DC Multivitamins/ Minerals (Infuvite Adult) 10 ml STK-MED ONCE 11/19/18 22:30 11/19/18 22:31 DC Multivitamins/ Minerals 10 ml/ Folic Acid 1 mg/ Thiamine HCl 100 mg/Lactated Ringer's 1,011.2 ml @ 1,011.2 mls/hr 1X ONCE 11/19/18 22:30 11/19/18 23:29 DC 11/19/18 23:05 1,011.2 MLS/HR Thiamine HCl (Thiamine Vial) 200 mg STK-MED ONCE 11/19/18 22:30 11/19/18 22:31 DC See nursing for home meds Allergies Allergies Allergies Coded Allergies Type Severity Reaction Last Updated Verified Lsltrpf-Hty-Wao Reductase Inhibitor Allergy Intermediate 05/18/14 Yes lithium Allergy Intermediate 05/18/14 Yes acetaminophen Adverse Reaction Severe 08/20/14 Yes chlordiazepoxide Adverse Reaction Intermediate 08/20/14 Yes Physical Exam Physical Exam Constitutional: Mild acute distress, non-toxic appearance. [] HENT: Normocephalic, atraumatic, bilateral external ears normal, oropharynx moist, no oral exudates, nose normal. []Contusion to right side of head Eyes: PERRLA, EOMI, conjunctiva normal, no discharge. [] Neck: Normal range of motion, no tenderness, supple, no stridor. [] Cardiovascular: Edgardo cardia Heart rate regular rhythm, PMI to the left. No murmur [] Lungs & Thorax: Bilateral breath sounds equal at apexes on auscultation [] Abdomen: Bowel sounds normal, soft, no tenderness, no masses, no pulsatile masses. [Old scar. Skin: Warm, dry, no erythema, no rash. [] Back: No tenderness, no CVA tenderness. [] Mild low back pain. Extremities: No tenderness, no cyanosis, no clubbing, ROM intact, no edema. [] Rt. hip tender. Is ambulatory. Neurologic: Alert and oriented X 3, moves all ext. on request,, distal sensory. , no focal deficits noted. [] Psychologic: Affect anxious, judgement normal, mood normal. [] Current Patient Data Lab Results Laboratory Tests Test 11/19/18 22:18 11/19/18 23:15 11/19/18 23:59 White Blood Count 2.8 x10^3/uL (4.0-11.0) L Red Blood Count 4.20 x10^6/uL (3.50-5.40) Hemoglobin 13.1 g/dL (12.0-15.5) Hematocrit 39.5 % (36.0-47.0) Mean Corpuscular Volume 94 fL (79-100) Mean Corpuscular Hemoglobin 31 pg (25-35) Mean Corpuscular Hemoglobin Concent 33 g/dL (31-37) Red Cell Distribution Width 15.7 % (11.5-14.5) H Platelet Count 142 x10^3/uL (140-400) Neutrophils (%) (Auto) 37 % (31-73) Lymphocytes (%) (Auto) 37 % (24-48) Monocytes (%) (Auto) 21 % (0-9) H Eosinophils (%) (Auto) 3 % (0-3) Basophils (%) (Auto) 3 % (0-3) Neutrophils # (Auto) 1.0 x10^3uL (1.8-7.7) L Lymphocytes # (Auto) 1.0 x10^3/uL (1.0-4.8) Monocytes # (Auto) 0.6 x10^3/uL (0.0-1.1) Eosinophils # (Auto) 0.1 x10^3/uL (0.0-0.7) Basophils # (Auto) 0.1 x10^3/uL (0.0-0.2) Prothrombin Time 10.3 SEC (9.4-11.4) Prothrombin Time INR 1.0 (0.9-1.1) Activated Partial Thromboplast Time 27 SEC (23-33) Sodium Level 139 mmol/L (136-145) Potassium Level 3.7 mmol/L (3.5-5.1) Chloride Level 101 mmol/L (98-107) Carbon Dioxide Level 32 mmol/L (21-32) Anion Gap 6 (6-14) Blood Urea Nitrogen 24 mg/dL (7-20) H Creatinine 0.7 mg/dL (0.6-1.0) Estimated GFR (Cockcroft-Gault) 82.0 Glucose Level 89 mg/dL (70-99) Calcium Level 9.3 mg/dL (8.5-10.1) Magnesium Level 2.0 mg/dL (1.8-2.4) Total Bilirubin 0.4 mg/dL (0.2-1.0) Direct Bilirubin 0.1 mg/dL (0.0-0.2) Aspartate Amino Transferase (AST) 38 U/L (15-37) H Alanine Aminotransferase (ALT) 67 U/L (14-59) H Alkaline Phosphatase 47 U/L (46-116) Creatine Kinase 86 U/L (26-192) Troponin I Quantitative < 0.017 ng/mL (0-0.055) XP-Wnf-X-Type Natriuretic Peptide 48 pg/mL (0-124) Total Protein 7.4 g/dL (6.4-8.2) Albumin 3.8 g/dL (3.4-5.0) Lipase 294 U/L (73-393) Ethyl Alcohol Level < 10 mg/dL (0-10) Urine Collection Type Void Urine Color Yellow Urine Clarity Clear Urine pH 7.0 Urine Specific [place] 1.015 Urine Protein Neg (NEG-TRACE) Urine Glucose (UA) Neg mg/dL (NEG) Urine Ketones (Stick) Trace mg/dL (NEG) Urine Blood Neg (NEG) Urine Nitrite Neg (NEG) Urine Bilirubin Neg (NEG) Urine Urobilinogen Dipstick 0.2 mg/dL (0.2 mg/dL) Urine Leukocyte Esterase Trace (NEG) Urine RBC Occ /HPF (0-2) Urine WBC Occ /HPF (0-4) Urine Squamous Epithelial Cells Occ /LPF Urine Transitional Epithelial Cells Occ /LPF Urine Renal Epithelial Cells Occ /LPF Urine Bacteria Few /HPF (0-FEW) Urine Opiates Screen Neg (NEG) Urine Methadone Screen Neg (NEG) Urine Barbiturates Neg (NEG) Urine Phencyclidine Screen Neg (NEG) Urine Amphetamine/Methamphetamine Neg (NEG) Urine Benzodiazepines Screen Neg (NEG) Urine Cocaine Screen Neg (NEG) Urine Cannabinoids Screen Neg (NEG) Urine Ethyl Alcohol Neg (NEG) Valproic Acid Level 50 mcg/mL (50-100) Valproic Acid Last Dose Date 11/19/18 Valproic Acid Last Dose Time 0900 EKG EKG My interpretation EKG shows a sinus bradycardia at 51 bpm. No acute morphology[] Radiology/Procedures Radiology/Procedures [][address] [address] IMAGING REPORT Signed PATIENT: SUNIL HOWELL ACCOUNT: [id number] : 1945 LOCATION: ER AGE: 73 SEX: F EXAM STATUS: PRE ER ORD. PHYSICIAN: LENIN CALLES MD REASON: Fall hit left side of head PROCEDURE: CT HEAD AND CERVICAL SPINE WO PQRS Compliance Statement: One or more of the following individualized dose reduction techniques were utilized for this examination: 1. Automated exposure control 2. Adjustment of the mA and/or kV according to patient size 3. Use of iterative reconstruction technique PQRS Compliance Statement: One or more of the following individualized dose reduction techniques were utilized for this examination: 1. Automated exposure control 2. Adjustment of the mA and/or kV according to patient size 3. Use of iterative reconstruction technique CT head and cervical spine without contrast 11/19/2018 10:[address] lumbar spine without contrast CT pelvis without contrast INDICATION: Fall. Hit left side of head. Hip pain. COMPARISON: CT head December 24, 2017 TECHNIQUE: Multiple axial CT images of the head were obtained from skull base through the vertex without intravenous contrast. Multiple axial CT images of the cervical and lumbar spine as well as the pelvis were obtained without intravenous contrast. Coronal and sagittal reformats are provided. FINDINGS: Head: Ventricles, sulci and basal cisterns are within normal limits. There is no hydrocephalus. [place]-white matter differentiation is normal. There is no acute intracranial hemorrhage. There is no mass, mass effect or midline shift. Posterior fossa is normal in appearance. Visualized portions of the orbits are normal with exception of bilateral lens replacement. Paranasal sinuses are well aerated. Mastoid air cells are well aerated. Scalp and calvaria are normal. Cervical spine: Minimal retrolisthesis of C5 on C6 Skull base is intact. Craniocervical junction is normal in appearance. Atlantoaxial articulation is normal. Vertebral body heights are maintained without evidence for acute fracture. There is moderate disc height loss at C5-C6. There is a posterior disc osteophyte complex at C5-C6 with mild facet and moderate uncovertebral joint disease resulting in mild right and moderate to severe left neuroforaminal stenosis. There is mild spinal canal stenosis. There is no prevertebral soft tissue swelling. Thyroid gland is normal in appearance. Visualized portions of the lung apices are normal without evidence for suspicious pulmonary nodule or infiltrate. Lumbar spine: There is minimal retrolisthesis of L3 on L4. There is concavity of the inferior endplate of L2 with 15 percent height loss, likely chronic. There is superior plate concavity of the T12 vertebral body secondary to superior plate Schmorl's node with 25 percent height loss, likely chronic. There is moderate disc height loss at L4-L5 with vacuum disc phenomenon and subcortical sclerosis. Abdominal aorta is normal in caliber with dense calcified atheromatous plaque. No suspicious retroperitoneal lymph nodes. Visualized portions of the kidneys appear intact. At L2-L3, there is a disc bulge with mild facet arthropathy resulting in mild bilateral neuroforaminal stenosis and mild spinal canal stenosis. At L3-L4, there is a mild disc bulge with mild facet arthropathy ligamentum flavum infolding resulting in mild bilateral neuroforaminal stenosis and mild spinal canal stenosis. At L4-L5, there is a posterior disc osteophyte complex with moderate facet arthropathy and ligamentum flavum infolding resulting in moderate bilateral neuroforaminal stenosis and mild to moderate spinal canal stenosis. At L5-S1, there is central disc protrusion with moderate to severe facet arthropathy and ligamentum flavum infolding resulting in mild to moderate bilateral neuroforaminal stenosis. Pelvis: Distal aorta is normal in caliber. There is mild colonic diverticulosis. No bowel obstruction. Urinary bladder is within normal limits given degree of distention. No pathologically enlarged lymph nodes are identified within the pelvis. Proximal femora are intact. Acetabula are intact. Superior and inferior pubic rami are intact. Pubic symphysis and sacroiliac joints are well aligned. No acute sacral fracture is identified. Coccyx is intact. IMPRESSION: 1. No acute intracranial hemorrhage. 2. Mild cervical spondylosis with minimal retrolisthesis of C5 on C6. No acute cervical fracture. 3. Minimal retrolisthesis of L3 on L4. Moderate lumbar spondylosis. 4. No acute fracture of the pelvis. Electronically signed by: Cristopher Martin MD (11/19/2018 11:27 PM) [facility] DICTATED AND SIGNED BY: CRISTOPHER MARTIN MD DATE: 11/19/18 [id number] CC: RICHARD ZHANG MD; LENIN CALLES MD ~ Course & Med Decision Making Course & Med Decision Making Pertinent Labs and Imaging studies reviewed. (See chart for details) Pt. currently demanding discharge. Will not be admitted. Pt. to follow up with primary. Return if any concerns. Keep AA meeting in Am. Ice packs as needed. Ibuprofen for pain. [] Final Impression Final Impression 1. Fall 2. Head Injury 3. Lt Hip Injury- contusion[] 4. Leukopenia 2.8 5. Mild elevation of AST 35/Alt 67 6. Contusions 7. Bradycardia Dragon Disclaimer Dragon Disclaimer This electronic medical record was generated, in whole or in part, using a voice recognition dictation system. Dragon Disclaimer This chart was dictated in whole or in part using Voice Recognition software in a busy, high-work load, and often noisy Emergency Department environment. It may contain unintended and wholly unrecognized errors or omissions. LENIN CALLES MD Nov 19, 2018 21:47
[2018-11-19] MEDS ORDERED: MVI, ADULT NO.4 WITH VIT K 10 ML VIAL IV ONE (22:30)
[2018-11-19] MEDS ORDERED: MVI, ADULT NO.4 WITH VIT K 10 ML, FOLIC ACID SYRINGE for ER 1 MG, THIAMINE INJ 100 MG i... IV ONE ×4 (22:30)
[2018-11-19] MEDS ORDERED: THIAMINE 200 MG/2 ML VIAL. IV ONE (22:30)
[2018-11-19] MEDS ORDERED: FOLIC ACID 5 MG/ML SYRINGE for ER IV ONE (22:30)
[2018-11-19 22:33] LABS: BASO # 0.1 x10^3/uL (0.0-0.2); BASO % 3 % (0-3); EOS # 0.1 x10^3/uL (0.0-0.7); EOS % 3 % (0-3); HEMATOCRIT 39.5 % (36.0-47.0); HEMOGLOBIN 13.1 g/dL (12.0-15.5); LYMPH % 37 % (24-48); MEAN CORPUSCULAR HEMOGLOBIN 31 pg (25-35); MEAN CORPUSCULAR HGB CONC 33 g/dL (31-37); MEAN CORPUSCULAR VOLUME 94 fL (79-100); MONO # 0.6 x10^3/uL (0.0-1.1); MONO % 21 % (0-9); NEUT % 37 % (31-73); PLATELET COUNT 142 x10^3/uL (140-400); RED CELL DISTRIBUTION WIDTH 15.7 % (11.5-14.5); WHITE BLOOD COUNT 2.8 x10^3/uL (4.0-11.0)
[2018-11-19 22:53] LABS: ALBUMIN 3.8 g/dL (3.4-5.0); CALCIUM 9.3 mg/dL (8.5-10.1); CREATININE 0.7 mg/dL (0.6-1.0); DIRECT BILIRUBIN 0.1 mg/dL (0.0-0.2); POTASSIUM 3.7 mmol/L (3.5-5.1); TOTAL BILIRUBIN 0.4 mg/dL (0.2-1.0); TOTAL PROTEIN 7.4 g/dL (6.4-8.2)
--- NOTE | 2018-11-19 23:30 | RAD ---
PQRS Compliance Statement: One or more of the following individualized dose reduction techniques were utilized for this examination: 1. Automated exposure control 2. Adjustment of the mA and/or kV according to patient size 3. Use of iterative reconstruction technique PQRS Compliance Statement: One or more of the following individualized dose reduction techniques were utilized for this examination: 1. Automated exposure control 2. Adjustment of the mA and/or kV according to patient size 3. Use of iterative reconstruction technique CT head and cervical spine without contrast 11/19/2018 10:[address] lumbar spine without contrast CT pelvis without contrast INDICATION: Fall. Hit left side of head. Hip pain. COMPARISON: CT head December 24, 2017 TECHNIQUE: Multiple axial CT images of the head were obtained from skull base through the vertex without intravenous contrast. Multiple axial CT images of the cervical and lumbar spine as well as the pelvis were obtained without intravenous contrast. Coronal and sagittal reformats are provided. FINDINGS: Head: Ventricles, sulci and basal cisterns are within normal limits. There is no hydrocephalus. [place]-white matter differentiation is normal. There is no acute intracranial hemorrhage. There is no mass, mass effect or midline shift. Posterior fossa is normal in appearance. Visualized portions of the orbits are normal with exception of bilateral lens replacement. Paranasal sinuses are well aerated. Mastoid air cells are well aerated. Scalp and calvaria are normal. Cervical spine: Minimal retrolisthesis of C5 on C6 Skull base is intact. Craniocervical junction is normal in appearance. Atlantoaxial articulation is normal. Vertebral body heights are maintained without evidence for acute fracture. There is moderate disc height loss at C5-C6. There is a posterior disc osteophyte complex at C5-C6 with mild facet and moderate uncovertebral joint disease resulting in mild right and moderate to severe left neuroforaminal stenosis. There is mild spinal canal stenosis. There is no prevertebral soft tissue swelling. Thyroid gland is normal in appearance. Visualized portions of the lung apices are normal without evidence for suspicious pulmonary nodule or infiltrate. Lumbar spine: There is minimal retrolisthesis of L3 on L4. There is concavity of the inferior endplate of L2 with 15 percent height loss, likely chronic. There is superior plate concavity of the T12 vertebral body secondary to superior plate Schmorl's node with 25 percent height loss, likely chronic. There is moderate disc height loss at L4-L5 with vacuum disc phenomenon and subcortical sclerosis. Abdominal aorta is normal in caliber with dense calcified atheromatous plaque. No suspicious retroperitoneal lymph nodes. Visualized portions of the kidneys appear intact. At L2-L3, there is a disc bulge with mild facet arthropathy resulting in mild bilateral neuroforaminal stenosis and mild spinal canal stenosis. At L3-L4, there is a mild disc bulge with mild facet arthropathy ligamentum flavum infolding resulting in mild bilateral neuroforaminal stenosis and mild spinal canal stenosis. At L4-L5, there is a posterior disc osteophyte complex with moderate facet arthropathy and ligamentum flavum infolding resulting in moderate bilateral neuroforaminal stenosis and mild to moderate spinal canal stenosis. At L5-S1, there is central disc protrusion with moderate to severe facet arthropathy and ligamentum flavum infolding resulting in mild to moderate bilateral neuroforaminal stenosis. Pelvis: Distal aorta is normal in caliber. There is mild colonic diverticulosis. No bowel obstruction. Urinary bladder is within normal limits given degree of distention. No pathologically enlarged lymph nodes are identified within the pelvis. Proximal femora are intact. Acetabula are intact. Superior and inferior pubic rami are intact. Pubic symphysis and sacroiliac joints are well aligned. No acute sacral fracture is identified. Coccyx is intact. IMPRESSION: 1. No acute intracranial hemorrhage. 2. Mild cervical spondylosis with minimal retrolisthesis of C5 on C6. No acute cervical fracture. 3. Minimal retrolisthesis of L3 on L4. Moderate lumbar spondylosis. 4. No acute fracture of the pelvis. Electronically signed by: Ingrid Perez MD (11/19/2018 11:27 PM) [facility]
[2018-11-19 23:48] LABS: BILIRUBIN,URINE NEG (NEG); CLARITY,URINE CLEAR; COLOR,URINE YELLOW; GLUCOSE,URINE NEG (NEG); NITRITE,URINE NEG (NEG); UROBILINOGEN,URINE 0.2 mg/dL (0.2 mg/dL)
[2018-11-19 23:49] LABS: BACTERIA,URINE FEW /HPF (0-FEW); RBC,URINE OCC /HPF (0-2); SQUAMOUS EPITHELIAL CELL,UR OCC /LPF; WBC,URINE OCC /HPF (0-4)
[2018-11-19 23:50] LABS: BARBITURATES NEG (NEG); BENZODIAZEPINES NEG (NEG); CANNABINOIDS NEG (NEG); COCAINE NEG (NEG); METHADONE NEG (NEG); OPIATES NEG (NEG); PHENCYCLIDINE NEG (NEG)
[2018-11-19 23:53] LABS: AMPHETAMINE/METHAMPHETAMINE NEG (NEG)
[2018-11-20 00:15] VITALS: BP 114/72
[2018-11-20 00:25] LABS: VAL ACID 50 mcg/mL (50-100)
--- NOTE | 2018-11-20 01:57 | EKG ---
[address] [address] Test Date: 2018-11-19 Test Time: 21:41:25 Pat Name: SUNIL HOWELL Department: Room: Gender: F Editor City: [place] : 1945 Requested By: LENIN CALLES Order Number: [id number] Reading MD: Measurements Intervals [place] Rate: 51 P: 41 LA: 178 QRS: 24 QRSD: 94 T: 42 QT: 434 QTc: 402 Interpretive Statements SINUS RHYTHM NO SPECIFIC ECG ABNORMALITIES RI6.01 No previous ECG available for comparison
--- NOTE | 2018-11-20 08:31 | RAD ---
CHEST PA LATERAL History: Fall Comparison: AP chest December 24, 2017. Findings: Atherosclerotic and tortuous thoracic aorta. Cardiac size is normal. Pulmonary vasculature is normal. The lungs are clear. No pleural effusion or pneumothorax is seen. There is no acute bone abnormality. IMPRESSION: No acute cardiopulmonary process. Electronically signed by: Deejay Pitt MD (11/20/2018 8:28 AM) [facility]
--- NOTE | 2018-11-20 08:33 | RAD ---
FEMUR AP AND LATERAL LEFT Clinical Indication: Fall, left leg pain. Comparison: None. Findings: There is no acute fracture. There is no dislocation. There is knee joint space narrowing. No significant joint space narrowing of the hip. No soft tissue swelling is seen. No knee joint effusion. Tiny patellar enthesophyte. Minimal arterial calcification. IMPRESSION: No acute fracture. Electronically signed by: Deejay Pitt MD (11/20/2018 8:30 AM) [facility]
== END 2018-11-20 00:22 | disposition home or self-care (01) ==
LOC: ER 21:28
DX: S00.93XA Contusion of unspecified part of head, initial encounter (principal); S70.01XA Contusion of right hip, initial encounter; M54.5 Low back pain; D72.819 Decreased white blood cell count, unspecified; R00.1 Bradycardia, unspecified; R74.8 Abnormal levels of other serum enzymes; F10.20 Alcohol dependence, uncomplicated; Y90.0 Blood alcohol level of less than 20 mg/100 ml; E78.00 Pure hypercholesterolemia, unspecified; I10 Essential (primary) hypertension; E03.9 Hypothyroidism, unspecified; Z88.8 Allergy status to other drugs, medicaments and biological substances; Z88.6 Allergy status to analgesic agent; W18.09XA Striking against other object with subsequent fall, initial encounter; Y93.E5 Activity, floor mopping and cleaning; Y92.89 Other specified places as the place of occurrence of the external cause; Y99.8 Other external cause status
CPT/HCPCS: 36415; 70450; 71046; 72125; 72131; 72192; 73552; 80048; 80076; 80164; 80307; 81001; 82550; 83690; 83735; 83880; 84443; 84484; 85025; 85610; 85730; 87086; 93005; 96365; 99285; G0480; J7120

== ENCOUNTER 2018-12-15 02:05 | Emergency (ER) | payer MEDICARE ==
[~2018-12-15] VITALS: Ht 163.8 cm; Wt 77.8 kg
[~2018-12-15 02:05] MED LIST changes: +DIVA500T2 PO
[2018-12-15 02:07] VITALS: BP 121/70
--- NOTE | 2018-12-15 02:35 | PHYS DOC ---
Past History Past Medical History: Alcoholism, Anxiety, Depression, High Cholesterol, Hypertension, Hypothyroid, Other Past Surgical History: Hysterectomy, Tonsillectomy Smoking: Non-smoker Alcohol Use: Sober Drug Use: None Adult General Chief Complaint Chief Complaint: LOWER EXTREMITY SWELLING HPI HPI Patient is a 73-year-old female who presents via EMS with right knee pain. She states she was out crawling around in her garden yesterday when she developed some of the discomfort. She has not taken anything such as Tylenol or Motrin at home to alleviate the discomfort. She does not recall any specific trauma to the knee. She doesn't recall twisting the knee. She denies any other injuries. She does state that she is an alcoholic and will not take Tylenol containing substances secondary to that. She states her knee is throbbing and much worse with flexion and extension[] Review of Systems Review of Systems Constitutional: Denies fever or chills [] Eyes: Denies change in visual acuity, redness, or eye pain [] HENT: Denies nasal congestion or sore throat [] Respiratory: Denies cough or shortness of breath [] Cardiovascular: No additional information not addressed in HPI [] GI: Denies abdominal pain, nausea, vomiting, bloody stools or diarrhea [] : Denies dysuria or hematuria [] Musculoskeletal: Right knee pain[] Integument: Denies rash or skin lesions [] Neurologic: Denies headache, focal weakness or sensory changes [] Endocrine: Denies polyuria or polydipsia [] All other systems were reviewed and found to be within normal limits, except as documented in this note. Current Medications Current Medications Current Medications Medications (Trade) Dose Ordered Sig/Nova Start Time Stop Time Status Last Admin Dose Admin Ketorolac Tromethamine (Toradol Im) 60 mg 1X ONCE 12/15/18 02:30 12/15/18 02:31 UNV Allergies Allergies Allergies Coded Allergies Type Severity Reaction Last Updated Verified Sbumack-Cmd-Qzq Reductase Inhibitor Allergy Intermediate 05/18/14 Yes lithium Allergy Intermediate 05/18/14 Yes acetaminophen Adverse Reaction Severe 08/20/14 Yes chlordiazepoxide Adverse Reaction Intermediate 08/20/14 Yes Physical Exam Physical Exam Constitutional: Well developed, well nourished, no acute distress, non-toxic appearance, appears intoxicated. [] HENT: Normocephalic, atraumatic, bilateral external ears normal, oropharynx moist, no oral exudates, nose normal. [] Eyes: Injected sclera. [] Neck: Normal range of motion, no tenderness, supple, no stridor. [] Cardiovascular:Heart rate regular rhythm, no murmur [] Lungs & Thorax: Bilateral breath sounds clear to auscultation [] Abdomen: Bowel sounds normal, soft, no tenderness, no masses, no pulsatile masses. [] Skin: Warm, dry, no erythema, no rash. [] Back: No tenderness, no CVA tenderness. [] Extremities: Right knee is mildly tender to palp especially on the medial joint space there is no patellar apprehension no obvious deformity there is full range of motion. [] Neurologic: Alert and oriented X 3, normal motor function, normal sensory function, no focal deficits noted. [] Psychologic: Depressed affect[] EKG EKG [] Radiology/Procedures Radiology/Procedures [] Impressions: Right knee x-ray: Negative exam as interpreted by me Course & Med Decision Making Course & Med Decision Making Pertinent Labs and Imaging studies reviewed. (See chart for details) [] Dragon Disclaimer Dragon Disclaimer This electronic medical record was generated, in whole or in part, using a voice recognition dictation system. Departure Departure: Impression: Primary Impression: Right knee sprain Disposition: HOME, SELF-CARE Condition: STABLE Referrals: RICHARD ZHANG MD (PCP) Patient Instructions: Knee Pain Additional Instructions: Follow with your primary care physician if no improvement in the next 2-3 days. Return to the emergency department with any new or concerning symptoms Scripts Meloxicam (MELOXICAM) 15 Mg Tablet 1 TAB PO DAILY for knee pain, #30 TAB 2 Refills Prov: DEBRA MOY DO 12/15/18 Problem Qualifiers Primary Impression: Right knee sprain Encounter type: initial encounter Involved ligament of knee: unspecified ligament Qualified Codes: S83.91XA - Sprain of unspecified site of right knee, initial encounter DEBRA MOY DO Dec 15, 2018 02:35
[2018-12-15] MEDS ORDERED: MELO15TA23 PO (02:45)
--- NOTE | 2018-12-15 02:56 | RAD ---
Right knee 3 views. HISTORY: Right knee pain 3 views were taken of the right knee. There is mild hypertrophic change and arthritis. There is no fracture. There is a small joint effusion. IMPRESSION: 1. Small joint effusion. 2. Mild arthritis right knee. 3. No acute fracture. Electronically signed by: Carter Osborne MD (12/15/2018 2:53 AM) [facility]
[2018-12-15] MEDS ORDERED: KETOROLAC 60 MG/2 ML VIAL. IM ONE (03:00)
== END 2018-12-15 03:15 | disposition home or self-care (01) ==
LOC: ER 02:05
DX: S83.91XA Sprain of unspecified site of right knee, initial encounter (principal); F10.20 Alcohol dependence, uncomplicated; E78.00 Pure hypercholesterolemia, unspecified; I10 Essential (primary) hypertension; E03.9 Hypothyroidism, unspecified; Z88.8 Allergy status to other drugs, medicaments and biological substances; Z88.6 Allergy status to analgesic agent; Y90.9 Presence of alcohol in blood, level not specified; X50.9XXA Other and unspecified overexertion or strenuous movements or postures, initial encounter; Y93.89 Activity, other specified; Y92.89 Other specified places as the place of occurrence of the external cause; Y99.8 Other external cause status
CPT/HCPCS: 73560; 96372; 99284; J1885

== ENCOUNTER → 2018-12-21 | Day surgery (SDC) | payer MEDICARE ==
[~2018-12-21] MED LIST changes: +ALBUTEROL SULFATE 2.5 MG/3 ML NEBU. NEB PRN; +ATROPINE 0.5 MG/5 ML DISP.SYRIN. IV PRN; +HYDROmorphone PF 1 MG/ML DISP.SYRIN IV PRN; +IV RINGERS SOLUTION,LACTATED 1,000 ML IV SCH; +LIDOCAINE 1% PF 2 ML VIAL. ID PRN; +MELO15TA23 PO; +MIDAZOLAM HCL PF 2 MG/2 ML VIAL. IV PRN; +MORPHINE SULFATE 2 MG/ML DISP.SYRIN. IV PRN; +ONDANSETRON PF 4 MG/2 ML VIAL. IV PRN; +PHENOL ORAL SPRAY 177ML BOTTLE. MM PRN; +PROCHLORPERAZINE 10 MG/2 ML VIAL. IV PRN; +PROPOFOL 10,000 MCG/ML (20ML) VIAL IV ONE; +diphenhydrAMINE 50 MG/ML VIAL IV PRN
[2018-12-21 10:10] VITALS: BP 120/74
== END ==
LOC: SURG 08:01
PROVIDERS: ATTEND Internal Medicine Gastroenterology
DX: D12.2 Benign neoplasm of ascending colon (principal); K57.30 Diverticulosis of large intestine without perforation or abscess without bleeding; Z98.890 Other specified postprocedural states
CPT/HCPCS: 45385; J2704; J7120

== ENCOUNTER → 2018-12-24 | Outpatient (CLI) | payer MEDICARE ==
[2018-12-21 10:10] VITALS: BP 120/74
[~2018-12-24] MED LIST changes: -ALBUTEROL SULFATE 2.5 MG/3 ML NEBU. NEB PRN; -ATROPINE 0.5 MG/5 ML DISP.SYRIN. IV PRN; -HYDROmorphone PF 1 MG/ML DISP.SYRIN IV PRN; -IV RINGERS SOLUTION,LACTATED 1,000 ML IV SCH; -LIDOCAINE 1% PF 2 ML VIAL. ID PRN; -MIDAZOLAM HCL PF 2 MG/2 ML VIAL. IV PRN; -MORPHINE SULFATE 2 MG/ML DISP.SYRIN. IV PRN; -ONDANSETRON PF 4 MG/2 ML VIAL. IV PRN; -PHENOL ORAL SPRAY 177ML BOTTLE. MM PRN; -PROCHLORPERAZINE 10 MG/2 ML VIAL. IV PRN; -PROPOFOL 10,000 MCG/ML (20ML) VIAL IV ONE; -diphenhydrAMINE 50 MG/ML VIAL IV PRN
--- NOTE | 2018-12-24 18:16 | RAD ---
Exam: Right lower extremity venous duplex study INDICATION: Right leg pain TECHNIQUE: Using a combination of real-time ultrasound imaging and color-flow and pulse Doppler imaging techniques along with graded compression and augmentation, duplex evaluation of the deep venous systems of rightlower extremity was performed. Multiple images were obtained. Findings: There is no sonographic evidence for deep venous thrombosis involving the visualized deep venous structures of the right lower extremity. Fluid collection in the posterior medial popliteal fossa measuring approximately 2.6 x 3.7 x 0.9 cm, favored to represent Ramírez's cyst. Small amount of edema noted at the calf. IMPRESSION: 1. No acute DVT in the right lower extremity 2. Fluid collection in the posterior medial popliteal fossa measuring approximately 2.6 x 3.7 x 0.9 cm, favored to represent Ramírez's cyst. Electronically signed by: Allegra Evans MD (12/24/2018 6:13 PM) [id number]
== END | disposition home or self-care (01) ==
LOC: US 17:11
PROVIDERS: ATTEND Physician Assistant
DX: M79.604 Pain in right leg (principal); R60.0 Localized edema
CPT/HCPCS: 93971

== ENCOUNTER 2020-11-14 11:21 | Emergency (ER) | payer MEDICARE ==
[~2020-11-14] VITALS: Ht 165.1 cm; Wt 69.0 kg
[~2020-11-14 11:21] MED LIST changes: -CIPR500T PO; +CIPR500T2 PO; -CYAN100T2 PO; +CYAN100T21 PO; -LISI-334 PO; +LISI20TA18 PO; +METH28OI2 TP; -METH29OI TP; +MULT-445 PO; -MULT1TAB52 PO; -NIFE30TA17 PO; +NIFE30TA95 PO
[2020-11-14] MEDS ORDERED: MVI, ADULT NO.4 WITH VIT K 10 ML, FOLIC ACID INJ 1 MG, THIAMINE INJ 100 MG in IV NORMAL... IV ONE (12:15)
--- NOTE | 2020-11-14 12:23 | PHYS DOC ---
Past History Past Medical History: Alcoholism, Anxiety, Depression, High Cholesterol, Hypertension, Hypothyroid, Other Past Surgical History: Hysterectomy, Tonsillectomy Smoking: Non-smoker Alcohol Use: Sober Drug Use: None General Adult EDM: Chief Complaint: WITHDRAWAL HPI: HPI: 75-year-old female presents for "alcohol detox". The patient is an alcoholic. She is well-known to the emergency room. She states that she has been drinking a lot lately and wants to detox. Her last drink was 5 AM this morning. She has no other medical complaints. Review of Systems: Review of Systems: Constitutional: Denies fever or chills. Intoxication. Eyes: Denies change in visual acuity HENT: Denies nasal congestion or sore throat Respiratory: Denies cough or shortness of breath Cardiovascular: Denies chest pain or edema GI: Denies abdominal pain, nausea, vomiting, bloody stools or diarrhea : Denies dysuria Musculoskeletal: Denies back pain or joint pain Integument: Denies rash Neurologic: Denies headache, focal weakness or sensory changes Endocrine: Denies polyuria or polydipsia Lymphatic: Denies swollen glands Psychiatric: Denies depression or anxiety Current Medications: Current Meds: Current Medications Medications (Trade) Dose Ordered Sig/Nova Start Time Stop Time Status Last Admin Dose Admin Multivitamins/ Minerals 10 ml/ Folic Acid 1 mg/ Thiamine HCl 100 mg/Sodium Chloride 1,011.3 ml @ 1,000.187 mls/hr 1X ONCE 11/14/20 12:15 11/14/20 13:15 Allergies: Allergies: Allergies Coded Allergies Type Severity Reaction Last Updated Verified Jfiywvn-Cwm-Vtv Reductase Inhibitor Allergy Intermediate 12/21/18 Yes lithium Allergy Intermediate 12/21/18 Yes acetaminophen Adverse Reaction Severe 12/21/18 Yes chlordiazepoxide Adverse Reaction Intermediate 12/21/18 Yes Physical Exam: PE: Constitutional: Well developed, well nourished, no acute distress, mildly intoxicated. [] HENT: Normocephalic, atraumatic, bilateral external ears normal, oropharynx moist, no oral exudates, nose normal. [] Eyes: PERRLA, EOMI, conjunctiva normal, no discharge. [] Neck: Normal range of motion, no tenderness, supple, no stridor. [] Cardiovascular: Heart rate regular rhythm, no murmur [] Lungs & Thorax: Bilateral breath sounds clear to auscultation [] Abdomen: Bowel sounds normal, soft, no tenderness, no masses, no pulsatile masses. [] Skin: Warm, dry, no erythema, no rash. [] Back: No tenderness, no CVA tenderness. [] Extremities: No tenderness, no cyanosis, no clubbing, ROM intact, no edema. [] Neurologic: Alert and oriented X 3, normal motor function, normal sensory function, no focal deficits noted. [] Psychologic: Affect normal, judgement normal, mood normal. [] EKG: EKG: [] Radiology/Procedures: Radiology/Procedures: [] Heart Score: C/O Chest Pain: N/A Risk Factors: Risk Factors: DM, Current or recent (<one month) smoker, HTN, HLP, family history of CAD, obesity. Risk Scores: Score 0 - 3: 2.5% MACE over next 6 weeks - Discharge Home Score 4 - 6: 20.3% MACE over next 6 weeks - Admit for Clinical Observation Score 7 - 10: 72.7% MACE over next 6 weeks - Early Invasive Strategies Course & Med Decision Making: Course & Med Decision Making Pertinent Labs and Imaging studies reviewed. (See chart for details) The patient's labs are unremarkable. Her alcohol level is 19. Patient is concerned that she is having shakes and that this could be a withdrawal. I explained to her that she is not having withdrawal as she still has alcohol in her system. She has refused to go to a detox and stabilization program. She wants to stay in this hospital. Explained to the patient that with COVID-19 is not advisable to be in the hospital unless absolutely necessary. I do not be lieve she meets this criteria. She has home medications that should help with her anxiety and jittery symptoms. I have encouraged her to take these and to follow-up with her primary physician. She is stable for discharge at this time. [] Dragon Disclaimer: Dragon Disclaimer: This electronic medical record was generated, in whole or in part, using a voice recognition dictation system. Departure Departure: Impression: Primary Impression: Alcohol dependence with intoxication Disposition: HOME / SELF CARE / HOMELESS Condition: STABLE Referrals: RICHARD ZHANG MD (PCP) Patient Instructions: Alcohol Problems SHELLEY JASMINE DO Nov 14, 2020 12:23
[2020-11-14 12:58] LABS: BASO # 0.1 x10^3/uL (0.0-0.2); BASO % 1 % (0-3); EOS # 0.1 x10^3/uL (0.0-0.7); EOS % 1 % (0-3); HEMATOCRIT 37.8 % (36.0-47.0); HEMOGLOBIN 12.8 g/dL (12.0-15.5); LYMPH # 0.7 x10^3/uL (1.0-4.8); LYMPH % 15 % (24-48); MEAN CORPUSCULAR HEMOGLOBIN 33 pg (25-35); MEAN CORPUSCULAR HGB CONC 34 g/dL (31-37); MEAN CORPUSCULAR VOLUME 98 fL (79-100); MONO # 0.4 x10^3/uL (0.0-1.1); MONO % 9 % (0-9); NEUT # 3.5 x10^3uL (1.8-7.7); NEUT % 74 % (31-73); PLATELET COUNT 187 x10^3/uL (140-400); RED BLOOD COUNT 3.84 x10^6/uL (3.50-5.40); RED CELL DISTRIBUTION WIDTH 13.5 % (11.5-14.5); WHITE BLOOD COUNT 4.8 x10^3/uL (4.0-11.0)
[2020-11-14 13:00] VITALS: BP 153/102
[2020-11-14 13:08] LABS: CALCIUM 8.3 mg/dL (8.5-10.1); CREATININE 0.5 mg/dL (0.6-1.0); GFR 120.3; POTASSIUM 3.7 mmol/L (3.5-5.1)
[2020-11-14 13:15] LABS: ALBUMIN 3.7 g/dL (3.4-5.0); ALBUMIN/GLOBULIN RATIO 1.1 (1.0-1.7); TOTAL BILIRUBIN 0.4 mg/dL (0.2-1.0)
[2020-11-14 14:08] LABS: BARBITURATES NEG (NEG); BENZODIAZEPINES NEG (NEG); CANNABINOIDS NEG (NEG); CLARITY,URINE CLEAR; COCAINE NEG (NEG); COLOR,URINE YELLOW; METHADONE NEG (NEG); OPIATES NEG (NEG); PHENCYCLIDINE NEG (NEG)
[2020-11-14 14:09] LABS: BILIRUBIN,URINE NEG (NEG); GLUCOSE,URINE NEG (NEG)
[2020-11-14 14:10] LABS: BACTERIA,URINE 0 /HPF (0-FEW); NITRITE,URINE NEG (NEG); SQUAMOUS EPITHELIAL CELL,UR OCC /LPF; UROBILINOGEN,URINE 0.2 mg/dL (0.2 mg/dL); WBC,URINE RARE /HPF (0-4)
[2020-11-14 14:16] LABS: AMPHETAMINE/METHAMPHETAMINE NEG (NEG)
== END 2020-11-14 14:06 | disposition home or self-care (01) ==
LOC: ER 11:21
DX: F10.229 Alcohol dependence with intoxication, unspecified (principal); E78.00 Pure hypercholesterolemia, unspecified; I10 Essential (primary) hypertension; E03.9 Hypothyroidism, unspecified; F41.9 Anxiety disorder, unspecified; F32.9 Major depressive disorder, single episode, unspecified; Z20.822 Contact with and (suspected) exposure to COVID-19; Z88.8 Allergy status to other drugs, medicaments and biological substances; Y90.0 Blood alcohol level of less than 20 mg/100 ml
CPT/HCPCS: 36415; 80053; 80307; 81001; 85025; 87426; 96365; 99284; G0480; J7030; U0003

== ENCOUNTER 2021-08-11 21:21 | Emergency (ER) | payer MEDICARE ==
[~2021-08-11] VITALS: Ht 165.1 cm; Wt 69.0 kg
--- NOTE | 2021-08-11 21:31 | PHYS DOC ---
Past History Past Medical History: Alcoholism, Anxiety, Depression, High Cholesterol, Hypertension, Hypothyroid, Other Past Surgical History: No Surgical History Smoking: Non-smoker Alcohol Use: Heavy Drug Use: None General Adult EDM: Chief Complaint: MECHANICAL FALL HPI: HPI: Patient is a 76-year-old female who is brought in by EMS for evaluation of right hip pain after falling while reportedly sweeping her porch. This occurred shor tly prior to arrival. She denies hitting her head. Denies loss of consciousness. She landed on her right hip. She has a call assist device that she wears around her neck, she called 911 for lift assist. She has a history of chronic alcoholism. She reports that she has not had any alcohol to drink tonight but drink earlier this morning. However her alcohol level is over 200 h ere now. The patient denies headache, neck pain, back pain. She denies vision disturbance. She denies numbness, tingling, focal motor weakness. She denies abdominal pain, chest pain, dyspnea. She is supposed to use a walker for ambulation, but she reports that she does not want to do this, so she lives in the basement. She is able to briskly move both hips without difficulty. The patient interrupts the nurse and I multiple times, demanding to be "placed on a drip" because she fears that she is going to go through alcohol withdrawal. She does clinically appear to be intoxicated. She is not tremulous. She has not experienced seizure activity. Review of Systems: Review of Systems: Constitutional: Denies fever or chills Eyes: Denies change in visual acuity HENT: Denies nasal congestion or sore throat Respiratory: Denies cough or shortness of breath Cardiovascular: Denies chest pain or edema GI: Denies abdominal pain, nausea, vomiting : Denies urinary symptoms or incontinence Musculoskeletal: Reports right hip pain. Denies neck pain or back pain. Integument: Denies rash or wounds Neurologic: Denies headache, focal weakness or sensory changes Psychiatric: Chronic alcohol use disorder. Denies SI or HI symptoms. Allergies: Allergies: Allergies Coded Allergies Type Severity Reaction Last Updated Verified Ekuswog-Wyb-Mwx Reductase Inhibitor Allergy Intermediate 12/21/18 Yes lithium Allergy Intermediate 12/21/18 Yes acetaminophen Adverse Reaction Severe 12/21/18 Yes chlordiazepoxide Adverse Reaction Intermediate 9/10/19 Yes Physical Exam: PE: Constitutional: Well developed, well nourished, no acute distress, non-toxic appearance. [] HENT: Normocephalic, atraumatic, oropharynx patent and clear. No facial or oral or dental trauma noted. TMs are clear bilaterally. No hemotympanum. No otorrhea. Eyes: PERRL, EOMI, conjunctiva normal, no discharge. Bilateral horizontal nystagmus. Neck: Normal range of motion, no tenderness, supple, no stridor. No midline tenderness or step off. Cardiovascular:Heart rate regular rhythm, +2 radial, +2 PT and +2 DP pulses bilaterally Lungs & Thorax: Lungs are clear to auscultation bilaterally without rales, rhonchi or wheezes. No evidence of chest or thorax trauma. Equal chest rise. No distress Abdomen: Abdomen is obese, soft, nondistended, nontender to palpation. No palpable pulsatile mass. No CVA tenderness. No flank abdominal ecchymosis Skin: Warm, dry, no erythema, no rash. No ecchymosis, no abrasion, no lacera tions or wounds. Back: Full range of motion. No midline tenderness or step-offs Extremities: Pelvis is stable. No edema. Full passive and active, painless range of motion of both hips, she is briskly moving both lower extremities without any difficulty at all. No visible evidence of trauma. Neurologic: Patient is intoxicated appearing, though she is awake, alert, oriented x3. Cranial nerves II through XII grossly intact. 5 out of 5 motor s trength all 4 extremities. Speech is mildly slurred. Sensation is grossly intact. No dysarthria. Psychologic: Intoxicated. Denies SI or HI EKG: EKG: [] Radiology/Procedures: Radiology/Procedures: IMAGING REPORT Signed PATIENT: SUNIL HOWELL ACCOUNT: [id number] : 1945 LOCATION: ER AGE: 76 SEX: F EXAM STATUS: REG ER ORD. PHYSICIAN: TIN BARKER DO REASON: fall, right hip pain PROCEDURE: HIP RIGHT 2V WITH PELVIS Exam: Pelvis with right hip 2 views INDICATION: Fall, right hip pain TECHNIQUE: Frontal view of pelvis with frontal and frog-leg lateral views the right hip Comparisons: None FINDINGS: Bone mineralization is normal. No acute or healed fractures. Soft tissues are unremarkable. Joint spaces are well-maintained. IMPRESSION: No acute osseous abnormality. Electronically signed by: Allegra Escobar MD (08/11/2021 10:06 PM) [facility] DICTATED AND SIGNED BY: ALLEGRA ESCOBAR MD DATE: 08/11/212203 CC: RICHARD ZHANG MD; TIN BARKER DO ~ IMAGING REPORT Signed PATIENT: SUNIL HOWELL ACCOUNT: [id number] : 1945 LOCATION: ER AGE: 76 SEX: F EXAM STATUS: REG ER ORD. PHYSICIAN: TIN BARKER DO REASON: fall PROCEDURE: CT HEAD AND CERVICAL SPINE WO Exam: CT head and cervical spine INDICATION: Fall TECHNIQUE: Sequential axial images through the head and cervical spine were obtained without the administration of IV contrast. Exposure: One or more of the following in the visualized dose reduction techniques were utilized for this examination: 1. Automated exposure control 2. Adjustment of the MA and/or KV according to patient size 3. Use of iterative of reconstructive technique Comparisons: 11/19/2018 FINDINGS: Head: No focal parenchymal lesion or hemorrhage is identified. There is no midline shift or sulcal effacement. Mild patchy hypodensity in the periventricular white matter. No acute vascular territory infarction is identified. Ohara-white distinction is preserved. The ventricular system is within normal limits without compression hydrocephalus. The basal cisterns are well maintained. The visualized portions of the paranasal sinuses and mastoid air cells are well- pneumatized. No acute fractures. Cervical spine: Straightening of cervical spine which may positional. Vertebral body heights are well-maintained. Fracture through the cervical spine is not identified. Multilevel spondylotic change in cervical spine with degenerative disc disease greatest at C5-C6. Mild bilateral facet arthropathy is also noted in cervical spine. Visualized paraspinal soft tissues are unremarkable. IMPRESSION: 1. No traumatic acute intracranial abnormality. 2. Negative CT C-spine for acute traumatic injury. Electronically signed by: Allegra Escobar MD (08/11/2021 10:46 PM) [facility] DICTATED AND SIGNED BY: ALLEGRA ESCOBAR MD DATE: 08/11/21 2243 CC: RICHARD ZHANG MD; TIN BARKER DO ~ Heart Score: C/O Chest Pain: No Risk Factors: Risk Factors: DM, Current or recent (<one month) smoker, HTN, HLP, family his tory of CAD, obesity. Risk Scores: Score 0 - 3: 2.5% MACE over next 6 weeks - Discharge Home Score 4 - 6: 20.3% MACE over next 6 weeks - Admit for Clinical Observation Score 7 - 10: 72.7% MACE over next 6 weeks - Early Invasive Strategies Course & Med Decision Making: Course & Med Decision Making Pertinent Labs and Imaging studies reviewed. (See chart for details) The patient declined pain medication. I did order an bolus of IV fluids. Imaging studies are unremarkable for any acute pathology, no fracture noted. I discussed the findings, differential diagnosis and plan of care with the patient. She is able to ambulate. She is awake and alert, oriented. There is not any indication for admission at this time. She will be discharged home. I did recommend she contact her PCP for follow-up. She verbalizes understanding. Cinthia Disclaimer: Cinthia Disclaimer: This electronic medical record was generated, in whole or in part, using a voice recognition dictation system. Departure Departure: Impression: Primary Impression: Fall at home Qualified Codes: W19.XXXA - Unspecified fall, initial encounter; Y92.009 - Unspecified place in unspecified non-institutional (private) residence as the place of occurrence of the external cause Additional Impressions: Right hip pain Alcohol intoxication Qualified Codes: F10.920 - Alcohol use, unspecified with intoxication, uncomplicated Disposition: 01 HOME / SELF CARE / HOMELESS Condition: STABLE Referrals: RICHARD ZHANG MD (PCP) Patient Instructions: Alcohol Intoxication, Alcohol Problems, Fall Prevention and Home Safety Additional Instructions: Return to the ER for more severe pain, new injury or trauma, focal weakness, head injury, vomiting, difficulty breathing, severe abdominal pain, chest pain or other concerns. Please use your walker to help with walking to avoid falling. Follow up with your primary care physician. TIN BARKER DO August 11, 2021 21:31
[2021-08-11] MEDS ORDERED: IV NORMAL SALINE 1,000ML 1,000 ML IV ONE (21:45)
--- NOTE | 2021-08-11 22:09 | RAD ---
Exam: Pelvis with right hip 2 views INDICATION: Fall, right hip pain TECHNIQUE: Frontal view of pelvis with frontal and frog-leg lateral views the right hip Comparisons: None FINDINGS: Bone mineralization is normal. No acute or healed fractures. Soft tissues are unremarkable. Joint spa holli are well-maintained. IMPRESSION: No acute osseous abnormality. Electronically signed by: Allegra Evans MD (08/11/2021 10:06 PM) [facility]
--- NOTE | 2021-08-11 22:49 | RAD ---
Exam: CT head and cervical spine INDICATION: Fall TECHNIQUE: Sequential axial images through the head and cervical spine were obtained without the admi nistration of IV contrast. Exposure: One or more of the following in the visualized dose reduction techniques were utilized for this examination: 1. Automated exposure control 2. Adjustment of the MA and/or KV according to patient size 3. Use of iterative of reconstructive technique Comparisons: 11/19/2018 FINDINGS: Head: No focal parenchymal lesion or hemorrhage is identified. There is no midline shift or sulcal effaceme nt. Mild patchy hypodensity in the periventricular white matter. No acute vascular territory infarction i s identified. Ohara-white distinction is preserved. The ventricular system is within normal limits without compression hydrocephalus. The basal cisterns are well maintained. The visualized portions of the paranasal sinuses and mastoid air cells are well-pneumatized. No acute fractures. Cervical spine: Straightening of cervical spine which may positional. Vertebral body heights are well-maintained. Fracture through the cervical spine is not identified. Multilevel spondylotic change in cervical spine with degenerative disc disease greatest at C5-C6. Mil d bilateral facet arthropathy is also noted in cervical spine. Visualized paraspinal soft tissues are unremarkable. IMPRESSION: 1. No traumatic acute intracranial abnormality. 2. Negative CT C-spine for acute traumatic injury. Electronically signed by: Allegra Evans MD (08/11/2021 10:46 PM) [facility]
[2021-08-11 22:58] LABS: BASO % 1 % (0-3); EOS # 0.1 x10^3/uL (0.0-0.7); EOS % 3 % (0-3); HEMATOCRIT 38.1 % (36.0-47.0); HEMOGLOBIN 12.7 g/dL (12.0-15.5); LYMPH % 32 % (24-48); MEAN CORPUSCULAR HEMOGLOBIN 33 pg (25-35); MEAN CORPUSCULAR HGB CONC 33 g/dL (31-37); MEAN CORPUSCULAR VOLUME 101 fL (79-100); MONO # 0.4 x10^3/uL (0.0-1.1); MONO % 12 % (0-9); NEUT # 1.7 x10^3uL (1.8-7.7); NEUT % 53 % (31-73); PLATELET COUNT 157 x10^3/uL (140-400); RED BLOOD COUNT 3.79 x10^6/uL (3.50-5.40); RED CELL DISTRIBUTION WIDTH 13.5 % (11.5-14.5); WHITE BLOOD COUNT 3.2 x10^3/uL (4.0-11.0)
[2021-08-11 23:05] LABS: CALCIUM 8.7 mg/dL (8.5-10.1); CREATININE 0.8 mg/dL (0.6-1.0); GFR 69.7; POTASSIUM 3.9 mmol/L (3.5-5.1)
[2021-08-11 23:11] LABS: MAGNESIUM 1.8 mg/dL (1.8-2.4)
[2021-08-11 23:34] VITALS: BP 147/67
== END 2021-08-11 23:40 | disposition home or self-care (01) ==
LOC: ER 21:21
DX: M25.551 Pain in right hip (principal); F10.229 Alcohol dependence with intoxication, unspecified; F41.9 Anxiety disorder, unspecified; F32.9 Major depressive disorder, single episode, unspecified; E78.00 Pure hypercholesterolemia, unspecified; I10 Essential (primary) hypertension; E03.9 Hypothyroidism, unspecified; Z88.8 Allergy status to other drugs, medicaments and biological substances; Y90.7 Blood alcohol level of 200-239 mg/100 ml; W18.39XA Other fall on same level, initial encounter; Y93.89 Activity, other specified; Y92.098 Other place in other non-institutional residence as the place of occurrence of the external cause; Y99.8 Other external cause status
CPT/HCPCS: 36415; 70450; 72125; 73502; 80048; 82550; 83735; 85025; 96360; 99285; G0480; J7030

== ENCOUNTER 2021-08-15 10:08 | Emergency (ER) | payer MEDICARE ==
[~2021-08-15] VITALS: Ht 165.1 cm; Wt 72.7 kg
[2021-08-15 10:22] VITALS: BP 153/89
--- NOTE | 2021-08-15 10:46 | RAD ---
EXAM: XR LT WRIST 3VIEWS 08/15/2021 10:35 AM CLINICAL INDICATION: Left wrist contusion on counter last night COMPARISON: None TECHNIQUE: PA, oblique, and lateral views of the left wrist FINDINGS: No acute fracture. Alignment is normal. Joint spaces are maintained. Mild degenerative faizan nt disease at the first CMC and triscaphe joints. Mild dorsal soft tissue swelling of the wrist. IMPRESSION: No acute osseous abnormality. Mild dorsal soft tissue swelling. Electronically signed by: Shanita Fermin MD (08/15/2021 10:44 AM) [id number]
--- NOTE | 2021-08-15 10:56 | PHYS DOC ---
Past History Past Medical History: Alcoholism, Anxiety, Depression, High Cholesterol, Hypertension, Hypothyroid, Other (AMBROCIO GALVEZ) Past Surgical History: Hysterectomy, Tonsillectomy Additional Past Surgical Histo: cataract (AMBROCIO GALVEZ) Smoking: Non-smoker Alcohol Use: Heavy Drug Use: None (AMBROCIO GALVEZ) General Adult EDM: Chief Complaint: WRIST PAIN HPI: HPI: Patient is a 76 year old female who presents with left wrist pain. Last night, patient states that she hit her wrist on the counter while she was cleaning cabinets. She reports 3/10 pain without radiation. Patient does not like to take pain medication secondary to recovering alcoholism. She has no other complaints at this time. (AMBROCIO GALVEZ) Review of Systems: Review of Systems: ROS negative or noncontributory except as mentioned in HPI. (AMBROCIO GALVEZ) Allergies: Allergies: Allergies Coded Allergies Type Severity Reaction Last Updated Verified Zujnoyk-KEB-NdS Reductase Inhibitor Allergy Intermediate 12/21/18 Yes lithium Allergy Intermediate 12/21/18 Yes acetaminophen Adverse Reaction Severe 12/21/18 Yes chlordiazepoxide Adverse Reaction Intermediate 12/21/18 Yes (AMBROCIO GALVEZ) Physical Exam: PE: Constitutional: Well developed, well nourished, no acute distress, non-toxic appearance. HENT: Normocephalic, atraumatic, bilateral external ears normal, nose normal. Eyes: EOMI, conjunctiva normal, no discharge. Neck: Normal range of motion, no tenderness, no stridor. Skin: Warm, dry, no erythema, no rash. Back: No tenderness, no step-off. Extremities: Left wrist tender to palpation diffusely with mild swelling, ecchymosis noted on anterior aspect wrist, radial pulses 2+ and symmetrical, no cyanosis, no clubbing, ROM intact, no edema. Neurologic: Alert and oriented x4, normal motor function, normal sensory function, no focal deficits noted. (AMBROCIO GALVEZ) Current Patient Data: Vital Signs: Vital Signs Date Time Temp Pulse Resp B/P (MAP) Pulse Ox O2 Delivery O2 Flow Rate FiO2 08/15/21 10:22 98.1 70 20 153/89 (110) 96 Room Air (AMBROCIO GALVEZ) Radiology/Procedures: Radiology/Procedures: PROCEDURE: WRIST 3V LEFT EXAM: XR LT WRIST 3VIEWS 08/15/2021 10:35 AM CLINICAL INDICATION: Left wrist contusion on counter last night COMPARISON: None TECHNIQUE: PA, oblique, and lateral views of the left wrist FINDINGS: No acute fracture. Alignment is normal. Joint spaces are maintained. Mild degenerative joint disease at the first CMC and triscaphe joints. Mild dorsal soft tissue swelling of the wrist. IMPRESSION: No acute osseous abnormality. Mild dorsal soft tissue swelling. Electronically signed by: Shanita Fermin MD (08/15/2021 10:44 AM) [id number] (AMBROCIO GALVEZ) Heart Score: C/O Chest Pain: No (AMBROCIO GALVEZ) Course & Med Decision Making: Course & Med Decision Making Pertinent Labs and Imaging studies reviewed. (See chart for details) No fracture seen on plain imaging. Patient placed in compression Velcro wrist splint and instructed to follow-up with primary care. Return precautions are provided. Patient understands and is agreeable to discharge plan. (AMBROCIO GALVEZ) Dragon Disclaimer: Dragfrank Disclaimer: This electronic medical record was generated, in whole or in part, using a voice recognition dictation system. (AMBROCIO GALVEZ) Departure Departure: Impression: Primary Impression: Contusion of left wrist, initial encounter Additional Impression: Arthritis of wrist, left, degenerative Qualified Codes: M19.032 - Primary osteoarthritis, left wrist Disposition: HOME / SELF CARE / HOMELESS Condition: GOOD Referrals: RICHARD ZHANG MD (PCP) Patient Instructions: RICE - Routine Care for Injuries, [id number] Additional Instructions: EMERGENCY DEPARTMENT GENERAL DISCHARGE INSTRUCTIONS Thank you for coming to [facility] (ED) today and trusting us with you care. We trust that you had a positive experience in our Emergency Department. If you wish to speak to the department management, you may call the director at [phone]. YOUR FOLLOW UP INSTRUCTIONS ARE FOLLOWS: 1. Follow up with your primary care doctor. If you do not have a primary doctor, please ask for a resource list of physicians or clinics that may be able to assist you with follow up care. 2. The emergency provider has interpreted your imaging studies, if any were ordered. The radiology wax specialist also reviewed them. If there is a change in the findings, you will be notified in 48 hours when at all possible. 3. If a lab test or culture has been done, your results will be reviewed and you will be notified if you need a change in treatment. 4. Follow instructions verbalized to you and refer to the printouts if needed. ADDITIONAL INSTRUCTIONS AND INFORMATION: 1. Your care today has been supervised by a physician who is specially trained in emergency care. Many problems require more than one evaluation for a compl ete diagnosis and treatment. We recommend that you schedule your follow up appointment as recommended to ensure complete treatment of you illness or injury. If you are unable to obtain follow up care and continue to have a problem, or if your condition worsens, we recommend that you return to the ED. 2. We are not able to safely determine your condition over the phone nor are we able to give sound medical advice over the phone. For these safety reasons, if you call for medical advice we will ask you to come to the ED for further evaluation. 3. If you have any questions regarding these discharge instructions please call the ED at [phone]. SAFETY INFORMATION: In the interest of safety, wellness, and injury prevention; we encourage you to wear your seat belt, if you smoke; quite smoking, and we encourage family to use a protective helmet for bicycling and other sporting events that present an increased risk for head injury. IF YOUR SYMPTOMS WORSEN OR NEW SYMPTOMS DEVELOP, OR YOU HAVE CONCERNS ABOUT YOUR CONDITION; OR IF YOUR CONDITION WORSENS WHILE YOU ARE WAITING FOR YOUR FOLLOW UP APPOINTMENT; EITHER CONTACT YOUR PRIMARY CARE DOCTOR, THE PHYSICIAN WHOSE NAME AND NUMBER YOU WERE GIVEN, OR RETURN TO THE ED IMMEDIATELY. Attending Signature Attending Signature I have reviewed the PA/CUTTER AND EDGE TRIMMER's note and plan of care. I was available for consultation as needed during the patient's visit in the emergency department. I agree with the clinical impression, plan, and disposition. (SHERRY MARTIN DO) AMBROCIO GALVEZ August 15, 2021 10:56 SHERRY MARTIN DO August 15, 2021 14:28
== END 2021-08-15 11:32 | disposition home or self-care (01) ==
LOC: ER 10:08
DX: S60.212A Contusion of left wrist, initial encounter (principal); M19.032 Primary osteoarthritis, left wrist; F10.20 Alcohol dependence, uncomplicated; E78.00 Pure hypercholesterolemia, unspecified; I10 Essential (primary) hypertension; E03.9 Hypothyroidism, unspecified; Z88.8 Allergy status to other drugs, medicaments and biological substances; Y90.9 Presence of alcohol in blood, level not specified; W22.8XXA Striking against or struck by other objects, initial encounter; Y93.E9 Activity, other interior property and clothing maintenance; Y92.89 Other specified places as the place of occurrence of the external cause; Y99.8 Other external cause status
CPT/HCPCS: 29125; 73110; 99283

== ENCOUNTER 2021-08-27 22:18 | Emergency (ER) | payer MEDICARE ==
[~2021-08-27] VITALS: Ht 165.1 cm; Wt 72.7 kg
--- NOTE | 2021-08-27 22:32 | PHYS DOC ---
Past History Past Medical History: Alcoholism, Anxiety, Depression, High Cholesterol, Hypertension, Hypothyroid, Other Past Surgical History: Hysterectomy, Tonsillectomy Additional Past Surgical Histo: cataract Smoking: Non-smoker Alcohol Use: Sober Drug Use: None General Adult EDM: Chief Complaint: MECHANICAL FALL HPI: HPI: Patient is a 76-year-old female coming in from home via EMS for a fall. Patient complaining of right hip pain. EMS found her just inside of her door laying on her side. Patient has had numerous visits for the same complaint. Patient denies any loss of consciousness. States she was sweeping when she lost her balance, and was not able to get up Review of Systems: Review of Systems: All other systems within normal limits except for as noted in the HPI Allergies: Allergies: Allergies Coded Allergies Type Severity Reaction Last Updated Verified [id number] Reductase Inhibitor Allergy Intermediate 08/27/21 Yes lithium Allergy Intermediate 08/27/21 Yes acetaminophen Adverse Reaction Severe 08/27/21 Yes chlordiazepoxide Adverse Reaction Intermediate 08/27/21 Yes Physical Exam: PE: Constitutional: Well developed, well nourished, no acute distress, non-toxic appearance. [] HENT: Normocephalic, atraumatic, bilateral external ears normal, nose normal. [] Eyes: PERRLA, conjunctiva normal, no discharge. [] Neck: No rigidity, supple, no stridor. [] Cardiovascular: Regular rate and rhythm, brisk cap refill [] Lungs & Thorax: Non labored symmetric respirations, no tachypnea or respiratory distress [] Abdomen: Soft, nondistended. Skin: Warm, dry, no erythema, no rash. [] Back: Unremarkable Extremities: No deformities, range of motion grossly intact, no lower extremity edema. No tenderness over right hip, moving extremity actively [] Neurologic: Alert and oriented X 3, no focal deficits noted. [] Psychologic: Affect normal, judgement normal, mood normal. [] Current Patient Data: Vital Signs: Vital Signs Date Time Temp Pulse Resp B/P (MAP) Pulse Ox O2 Delivery O2 Flow Rate FiO2 08/27/21 22:28 98.4 71 18 146/86 (106) 96 Room Air EKG: EKG: [] Radiology/Procedures: Radiology/Procedures: [address] [address] IMAGING REPORT Signed PATIENT: SUNIL HOWELL ACCOUNT: [id number] : 1945 LOCATION: ER AGE: 76 SEX: F EXAM STATUS: REG ER ORD. PHYSICIAN: NAYELI PETERSON MD REASON: Fall, right hip pain PROCEDURE: HIP 1V RIGHT Exam: Right hip one view INDICATION: Fall, right hip pain TECHNIQUE: Frontal view of the right hip Comparisons: None FINDINGS: Bone mineralization is normal. No acute or healed fractures. Soft tissues are unremarkable. Joint spaces are well-maintained. IMPRESSION: No acute osseous abnormality Electronically signed by: Allegra Escobar MD (08/27/2021 11:10 PM) [facility] DICTATED AND SIGNED BY: ALLEGRA ESCOBAR MD DATE: 08/27/212308 CC: NAYELI PETERSON MD; RICHARD ZHANG MD ~ [address] [address] IMAGING REPORT Signed PATIENT: SUNIL HOWELL ACCOUNT: [id number] : 1945 LOCATION: ER AGE: 76 SEX: F EXAM STATUS: REG ER ORD. PHYSICIAN: NAYELI PETERSON MD REASON: Fall, headache and neck pain PROCEDURE: CT HEAD AND CERVICAL SPINE WO CT Head W/O Contrast: History: Reason: Fall, headache and neck pain / Spl. Instructions: / History: Comparison: none Axial images were obtained without contrast. There is moderate diffuse atrophy. There is no mass effect, extraaxial fluid collections or hydrocephalus. There is no focal loss of melgar-white matter distinction to suggest acute ischemia, i.e. stroke. Impression: No acute findings. End of impression CT C-Spine without contrast: Clinical History: Reason: Fall, headache and neck pain / Spl. Instructions: / History: Technique: Axial helical images of the cervical spine were obtained without contrast, axial coronal and sagittal reconstruction was performed. Findings: There is no loss of vertebral body stature. There is no prevertebral soft tissue swelling. The vertebral bodies are well aligned. There is straightening of the normal cervical lordosis which can be positional or could be chronic. The C1-C2 relationship is normal. The visualized osseous structures appear normal. Evaluation of the central canal is limited without contrast. There is multiple posterior disc bulges resulting in flattening of the thecal sac. There does not appear to be gross flattening of the cervical cord. There is moderate narrowing of multiple neuroforamen. Impression: No acute findings. Clinical correlation suggested. PQRS Compliance Statement: One or more of the following individualized dose reduction techniques were utilized for this examination: 1. Automated exposure control 2. Adjustment of the mA and/or kV according to patient size 3. Use of iterative reconstruction technique Electronically signed by: Edwardo Stevens III, MD (08/27/2021 10:54 PM) [facility] DICTATED AND SIGNED BY: EDWARDO STEVENS III, MD DATE: 08/27/212248 CC: NAYELI PETERSON MD; RICHARD ZHANG MD ~ [] Heart Score: C/O Chest Pain: No Risk Factors: Risk Factors: DM, Current or recent (<one month) smoker, HTN, HLP, family history of CAD, obesity. Risk Scores: Score 0 - 3: 2.5% MACE over next 6 weeks - Discharge Home Score 4 - 6: 20.3% MACE over next 6 weeks - Admit for Clinical Observation Score 7 - 10: 72.7% MACE over next 6 weeks - Early Invasive Strategies Course & Med Decision Making: Course & Med Decision Making Pertinent Labs and Imaging studies reviewed. (See chart for details) No apparent injury. Patient observed in the emergency department for 7 hours until clinically sober. And blood alcohol should be under 100. Patient has a nearly identical visit about 2 weeks ago. Patient ambulatory with steady gait. Requesting to have a cab called to take her home [] Dragon Disclaimer: Dragon Disclaimer: This electronic medical record was generated, in whole or in part, using a voice recognition dictation system. Departure Departure: Impression: Primary Impression: Alcohol intoxication Additional Impression: Fall at home Disposition: 01 HOME / SELF CARE / HOMELESS Condition: STABLE Referrals: RICHARD ZHANG MD (PCP) Patient Instructions: Fall Prevention and Home Safety NAYELI PETERSON MD August 27, 2021 22:32
--- NOTE | 2021-08-27 22:56 | RAD ---
CT Head W/O Contrast: History: Reason: Fall, headache and neck pain / Spl. Instructions: / History: Comparison: none Axial images were obtained without contrast. There is moderate diffuse atrophy. There is no mass effect, extraaxial fluid collections or hydrocep halus. There is no focal loss of melgar-white matter distinction to suggest acute ischemia, i.e. stroke. Impression: No acute findings. End of impression CT C-Spine without contrast: Clinical History: Reason: Fall, headache and neck pain / Spl. Instructions: / History: Technique: Axial helical images of the cervical spine were obtained without contrast, axial coronal and sagittal reconstruction was performed. Findings: There is no loss of vertebral body stature. There is no prevertebral soft tissue swelling. The vert ebral bodies are well aligned. There is straightening of the normal cervical lordosis which can be p ositional or could be chronic. The C1-C2 relationship is normal. The visualized osseous structures ap pear normal. Evaluation of the central canal is limited without contrast. There is multiple posterio r disc bulges resulting in flattening of the thecal sac. There does not appear to be gross flattening of the cervical cord. There is moderate narrowing of multiple neuroforamen. Impression: No acute findings. Clinical correlation suggested. PQRS Compliance Statement: One or more of the following individualized dose reduction techniques were utilized for this examinat ion: 1. Automated exposure control 2. Adjustment of the mA and/or kV according to patient size 3. Use of iterative reconstruction technique Electronically signed by: Mitchell Galvez III, MD (08/27/2021 10:54 PM) [facility]
--- NOTE | 2021-08-27 23:12 | RAD ---
Exam: Right hip one view INDICATION: Fall, right hip pain TECHNIQUE: Frontal view of the right hip Comparisons: None FINDINGS: Bone mineralization is normal. No acute or healed fractures. Soft tissues are unremarkable. Joint spa holli are well-maintained. IMPRESSION: No acute osseous abnormality Electronically signed by: Allegra Evans MD (08/27/2021 11:10 PM) [facility]
[2021-08-27 23:32] LABS: BASO % 1 % (0-3); EOS # 0.1 x10^3/uL (0.0-0.7); EOS % 3 % (0-3); HEMATOCRIT 37.3 % (36.0-47.0); HEMOGLOBIN 12.4 g/dL (12.0-15.5); LYMPH % 32 % (24-48); MEAN CORPUSCULAR HEMOGLOBIN 33 pg (25-35); MEAN CORPUSCULAR HGB CONC 33 g/dL (31-37); MEAN CORPUSCULAR VOLUME 100 fL (79-100); MONO # 0.4 x10^3/uL (0.0-1.1); MONO % 14 % (0-9); NEUT # 1.5 x10^3uL (1.8-7.7); NEUT % 49 % (31-73); PLATELET COUNT 144 x10^3/uL (140-400); RED BLOOD COUNT 3.73 x10^6/uL (3.50-5.40); RED CELL DISTRIBUTION WIDTH 13.9 % (11.5-14.5); WHITE BLOOD COUNT 3.1 x10^3/uL (4.0-11.0)
[2021-08-27 23:42] LABS: CALCIUM 8.2 mg/dL (8.5-10.1); CREATININE 0.6 mg/dL (0.6-1.0); GFR 97.2; POTASSIUM 3.6 mmol/L (3.5-5.1)
[2021-08-27 23:49] LABS: ALBUMIN 3.6 g/dL (3.4-5.0); ALBUMIN/GLOBULIN RATIO 1.1 (1.0-1.7); TOTAL BILIRUBIN 0.3 mg/dL (0.2-1.0); TOTAL PROTEIN 6.9 g/dL (6.4-8.2)
[2021-08-28] MEDS ORDERED: IV RINGERS SOLUTION,LACTATED 1,000 ML IV ONE (00:30)
[2021-08-28 03:59] VITALS: BP 146/73
== END 2021-08-28 06:04 | disposition home or self-care (01) ==
LOC: ER 22:18
DX: F10.229 Alcohol dependence with intoxication, unspecified (principal); M25.551 Pain in right hip; F41.9 Anxiety disorder, unspecified; F32.9 Major depressive disorder, single episode, unspecified; E78.00 Pure hypercholesterolemia, unspecified; I10 Essential (primary) hypertension; E03.9 Hypothyroidism, unspecified; Z88.8 Allergy status to other drugs, medicaments and biological substances; Y90.8 Blood alcohol level of 240 mg/100 ml or more; W18.39XA Other fall on same level, initial encounter; Y93.89 Activity, other specified; Y92.098 Other place in other non-institutional residence as the place of occurrence of the external cause; Y99.8 Other external cause status
CPT/HCPCS: 36415; 70450; 72125; 73501; 80053; 83735; 85025; 96360; 96361; 99285; G0480; J7120